=== PATIENT | male | born 1945 | race African-American/Black ===

== ENCOUNTER 2018-07-19 01:18 | Inpatient (IN) | payer MEDICAID, MEDICARE ==
[2018-07-19] VITALS (80 sets, daily range): BP systolic 77–168; BP diastolic 44–96
[~2018-07-19] VITALS: Ht 171.4 cm; Wt 116.6 kg
[2018-07-19] MEDS ORDERED: ONDANSETRON HCL 4MG/2ML INJ IV STA (01:36)
[2018-07-19] MEDS ORDERED: PROPOFOL 10MG/ML 100ML 100 ML IV ONE (01:45)
[2018-07-19] MEDS ORDERED: ETOMIDATE 2MG/ML 10ML VIAL IV ONE (01:45)
[2018-07-19] MEDS ORDERED: VECURONIUM BROMIDE 10 MG/VIAL IV ONE (01:45)
[2018-07-19] MEDS ORDERED: SODIUM CHLORIDE 0.9% 1000ML BAG (SEPSIS BOLUS) IV ONE (01:45)
[2018-07-19] MEDS ORDERED: VANCOMYCIN 1 G PREMIX 200 ML IV ONE (01:45)
[2018-07-19] MEDS ORDERED: PIPERACILLIN/TAZ 3.375G PREMIX 50 ML IV ONE (01:45)
[2018-07-19 02:14] LABS: HEMATOCRIT. 44.4 % (42.0-52.0); HEMOGLOBIN. 15.6 g/dL (14.0-18.0); MEAN CORPUSCULAR HEMOGLOBIN 31.6 pg (28.0-32.0); MEAN CORPUSCULAR VOLUME 90.1 fL (80.0-94.0); MEAN PLATELET VOLUME 8.5 fl (7.4-10.4); PLATELET 155 x1000/uL (130-400); RED BLOOD CELL COUNT 4.93 mill/uL (4.7-6.1)
[2018-07-19 02:21] LABS: CHLORIDE 110 mEq/L (98-107)
[2018-07-19 02:23] LABS: INR 1.1; PROTHROMBIN TIME 11.6 sec (9.6-11.0)
[2018-07-19 02:52] LABS: PLATELET ESTIMATE NORMAL
[2018-07-19 02:57] LABS: BG BASE EXCESS -2.9 mmol/L (-2.0-2.0); BG CARBOXYHEMOGLOBIN 0.2 % (0.5-1.5); BG DEOXYHEMOGLOBIN 0.7 % (0.0-5.0); BG FRACTION INSPIRED OXYGEN 100; BG HCO3 ACT 20.9 mmol/L (22.0-26.0); BG METHEMOGLOBIN 0.7 % (0.0-1.5); BG OXYGEN SATURATION 99.3 % (92.0-98.5); BG OXYHEMOGLOBIN 98.4 % (94.0-97.0); BG PCO2 33.9 mmHg (35.0-45.0); BG PEEP (cmH2O) 0 cmH2O; BG PH 7.407 (7.350-7.450); BG PO2 229.7 mmHg (75.0-100.0); BG SAMPLE SITE RIGHT RADIAL; BG TIDAL VOLUME(mL) 550 mL; BG TOTAL HEMOGLOBIN 16.6 g/dL (12.0-18.0); BG VENT MODE VENT - A/C; BG VENT RATE 14 set
[2018-07-19] MEDS ORDERED: ACETAMINOPHEN 650MG SUPP PR SCH (03:15)
[2018-07-19 03:20] LABS: CLARITY URINE TURBID (CLEAR); KETONES URINE TRACE (NEGATIVE); LEUKOCYTE ESTERASE URINE 3+ (NEGATIVE); NITRITE URINE NEGATIVE (NEGATIVE); OCCULT BLOOD URINE 3+ (NEGATIVE); PROTEIN URINE 2+ (NEGATIVE); SPECIFIC GRAVITY URINE 1.013 (1.005-1.030)
[2018-07-19 03:21] LABS: COLOR URINE BLOODY (YELLOW)
[2018-07-19] MEDS ORDERED: LORAZEPAM 2MG/ML CPJ IV PRN (03:30)
[2018-07-19] MEDS ORDERED: DIPHENHYDRAMINE 50MG/ML VIAL IV PRN (03:30)
[2018-07-19] MEDS ORDERED: LACTATED RINGERS 1,000 ML IV SCH (03:30)
[2018-07-19] MEDS ORDERED: ONDANSETRON HCL 4MG/2ML INJ IV PRN (03:30)
[2018-07-19] MEDS ORDERED: IPRATROPIUM/ALBUTEROL 0.5-3(2.5)MG/3ML NEB INH PRN (03:30)
[2018-07-19] MEDS ORDERED: VANCOMYCIN 1 G PREMIX 200 ML IV SCH ×2 (03:30→06:00)
[2018-07-19] MEDS ORDERED: FENTANYL CITRATE/PF 500 MCG in SODIUM CHLORIDE 0.9% 40 ML IV PRN (04:30)
[2018-07-19] MEDS ORDERED: MIDAZOLAM HCL 100 MG in DEXT 5% WATER 80 ML IV PRN ×4 (04:30)
[2018-07-19] MEDS ORDERED: MIDAZOLAM HCL 50 MG in DEXTROSE 5% WATER 40 ML IV SCH ×4 (04:30)
[2018-07-19] MEDS: FENTANYL CITRATE/PF 500 MCG in SODIUM CHLORIDE 0.9% 40 ML IV PRN ×2 (05:07→19:43)
[2018-07-19 05:24] LABS: PHOSPHORUS 3.9 mg/dL (2.5-4.9)
[2018-07-19] MEDS ORDERED: NOREPINEPHRINE 4 MG in DEXT 5% WATER 246 ML IV SCH ×4 (06:00)
[2018-07-19 06:22] LABS: BG BASE EXCESS -6.1 mmol/L (-2.0-2.0); BG CARBOXYHEMOGLOBIN 0.8 % (0.5-1.5); BG DEOXYHEMOGLOBIN 0.7 % (0.0-5.0); BG HCO3 ACT 18.9 mmol/L (22.0-26.0); BG METHEMOGLOBIN 0.4 % (0.0-1.5); BG OXYGEN SATURATION 99.3 % (92.0-98.5); BG OXYHEMOGLOBIN 98.1 % (94.0-97.0); BG PCO2 35.7 mmHg (35.0-45.0); BG PH 7.341 (7.350-7.450); BG PO2 258.4 mmHg (75.0-100.0); BG SAMPLE SITE RIGHT RADIAL; BG TIDAL VOLUME(mL) 550 mL; BG TOTAL HEMOGLOBIN 14.8 g/dL (12.0-18.0); BG VENT MODE VENT - A/C; BG VENT RATE 14 set
[2018-07-19] MEDS ORDERED: AMLO5TAB88 PO (06:28)
[2018-07-19] MEDS ORDERED: CLOP75TA33 PO (06:28)
[2018-07-19] MEDS ORDERED: CHOL100034 MT (06:38)
[2018-07-19] MEDS ORDERED: ACET-2853 PO (06:38)
[2018-07-19] MEDS ORDERED: BISA10SU8 RC (06:38)
[2018-07-19] MEDS ORDERED: LOPE2TAB26 PO (06:38)
[2018-07-19] MEDS ORDERED: FAMO20TA8 MT (06:38)
[2018-07-19] MEDS ORDERED: ESCI5TAB10 PO (06:38)
[2018-07-19] MEDS ORDERED: DOCU-150 MT (06:38)
[2018-07-19] MEDS ORDERED: AMIN30LI2 PO (06:38)
[2018-07-19] MEDS ORDERED: SOD1POWD3 RC (06:38)
[2018-07-19] MEDS ORDERED: MOM PO (06:38)
[2018-07-19] MEDS ORDERED: LIDOCAINE HCL 1% 20ML VIAL (Pyxis) INJ ONE (07:39)
[2018-07-19] MEDS ORDERED: PIPERACILLIN SODIUM/TAZOBACTAM 4.5 G in DEXT 5% WATER 100 ML IV SCH (09:00)
[2018-07-19] MEDS: ENOXAPARIN 40MG/0.4ML SYR SUBCUT SCH (09:41)
[2018-07-19] MEDS: PIPERACILLIN/TAZ 2.25G PREMIX 50 ML IV SCH ×3 (09:41→21:07)
[2018-07-19] MEDS: FAMOTIDINE 20MG/2ML VIAL IV SCH (09:41)
[2018-07-19] MEDS: ACETAMINOPHEN 650MG SUPP PR PRN ×2 (10:57→17:39)
[2018-07-19] MEDS: PROPOFOL 10MG/ML 100ML 100 ML IV PRN ×3 (11:08→21:18)
[2018-07-19 12:28] LABS: HEMATOCRIT. 44.2 % (42.0-52.0); HEMOGLOBIN. 14.9 g/dL (14.0-18.0); MEAN CORPUSCULAR HEMOGLOBIN 30.5 pg (28.0-32.0); MEAN CORPUSCULAR VOLUME 90.7 fL (80.0-94.0); MEAN PLATELET VOLUME 8.2 fl (7.4-10.4); PLATELET 105 x1000/uL (130-400); RED BLOOD CELL COUNT 4.88 mill/uL (4.7-6.1); RED CELL DISTRIBUTION WIDTH 14.3 % (11.6-14.6)
[2018-07-19] MEDS ORDERED: DEXT 5%/0.9% NACL 1,000 ML IV ONE (13:00)
[2018-07-19 13:11] LABS: CHLORIDE 111 mEq/L (98-107)
[2018-07-19 13:59] LABS: PLATELET ESTIMATE SLIGHTLY DECREASED
[2018-07-19] MEDS: PHENYLEPHRINE 10 MG in DEXT 5% WATER 249 ML IV PRN ×3 (14:27→21:18)
[2018-07-19 15:09] LABS: HEMATOCRIT. 42.8 % (42.0-52.0); HEMOGLOBIN. 14.3 g/dL (14.0-18.0); MEAN CORPUSCULAR HEMOGLOBIN 30.3 pg (28.0-32.0); MEAN CORPUSCULAR VOLUME 90.8 fL (80.0-94.0); MEAN PLATELET VOLUME 8.8 fl (7.4-10.4); PLATELET 123 x1000/uL (130-400); RED BLOOD CELL COUNT 4.71 mill/uL (4.7-6.1); RED CELL DISTRIBUTION WIDTH 14.1 % (11.6-14.6)
[2018-07-19 15:35] LABS: PLATELET ESTIMATE SLIGHTLY DECREASED
[2018-07-19] MEDS: IPRATROPIUM BROMIDE (0.02%) 0.5MG/2.5ML NEB HHN SCH (20:15)
[2018-07-19] MEDS ORDERED: DEXTROSE 50% WATER 50ML SYRINGE IV PRN (20:45)
[2018-07-19] MEDS ORDERED: INSULIN LISPRO 100 UNITS/ML SUBCUT SCH (21:00)
[2018-07-19] MEDS ORDERED: BLOOD SUGAR DIAGNOSTIC STRIP TEST SCH (21:00)
[2018-07-19] MEDS: PHENYLEPHRINE 20 MG in DEXT 5% WATER 498 ML IV PRN (23:46)
[2018-07-20] VITALS (115 sets, daily range): BP systolic 64–198; BP diastolic 18–164
[2018-07-20] MEDS: IPRATROPIUM BROMIDE (0.02%) 0.5MG/2.5ML NEB HHN SCH ×6 (00:07→20:33)
[2018-07-20] MEDS: PIPERACILLIN/TAZ 2.25G PREMIX 50 ML IV SCH ×2 (03:09→08:28)
[2018-07-20] MEDS: PROPOFOL 10MG/ML 100ML 100 ML IV PRN ×2 (03:09→07:31)
[2018-07-20] MEDS: BLOOD SUGAR DIAGNOSTIC STRIP TEST SCH ×4 (06:00→23:18)
[2018-07-20] MEDS: INSULIN LISPRO 100 UNITS/ML SUBCUT SCH ×4 (06:00→23:18)
[2018-07-20 06:07] LABS: HEMATOCRIT. 43.9 % (42.0-52.0); HEMOGLOBIN. 14.6 g/dL (14.0-18.0); MEAN CORPUSCULAR HEMOGLOBIN 30.3 pg (28.0-32.0); MEAN CORPUSCULAR VOLUME 90.8 fL (80.0-94.0); MEAN PLATELET VOLUME 8.7 fl (7.4-10.4); PLATELET 92 x1000/uL (130-400); RED BLOOD CELL COUNT 4.83 mill/uL (4.7-6.1); RED CELL DISTRIBUTION WIDTH 14.6 % (11.6-14.6)
[2018-07-20 06:56] LABS: CHLORIDE 106 mEq/L (98-107)
[2018-07-20 07:07] LABS: PHOSPHORUS 2.7 mg/dL (2.5-4.9)
[2018-07-20 07:08] LABS: HDL CHOLESTEROL 11 mg/dL (40-59); LDL CHOLESTEROL 22 mg/dL (5-100)
[2018-07-20] MEDS: PHENYLEPHRINE 20 MG in DEXT 5% WATER 498 ML IV PRN ×2 (07:51→18:18)
[2018-07-20 08:29] LABS: PLATELET ESTIMATE DECREASED
[2018-07-20] MEDS: FAMOTIDINE 20MG/2ML VIAL IV SCH (08:29)
[2018-07-20] MEDS: ENOXAPARIN 40MG/0.4ML SYR SUBCUT SCH (08:30)
[2018-07-20 09:15] LABS: BG CARBOXYHEMOGLOBIN 0.6 % (0.5-1.5); BG DEOXYHEMOGLOBIN 1.2 % (0.0-5.0); BG FRACTION INSPIRED OXYGEN 40; BG HCO3 ACT 21.1 mmol/L (22.0-26.0); BG METHEMOGLOBIN 0.4 % (0.0-1.5); BG OXYGEN SATURATION 98.8 % (92.0-98.5); BG OXYHEMOGLOBIN 97.8 % (94.0-97.0); BG PCO2 38.6 mmHg (35.0-45.0); BG PH 7.355 (7.350-7.450); BG PO2 139.1 mmHg (75.0-100.0); BG SAMPLE SITE RIGHT RADIAL; BG TIDAL VOLUME(mL) 550 mL; BG TOTAL HEMOGLOBIN 14.3 g/dL (12.0-18.0); BG VENT MODE VENT - A/C; BG VENT RATE 14 set
[2018-07-20] MEDS ORDERED: CEFAZOLIN 2,000 MG in DEXT 5% WATER 100 ML IV SCH (11:45)
[2018-07-20] MEDS: MIDAZOLAM HCL 50 MG in DEXTROSE 5% WATER 40 ML IV PRN ×2 (12:23→17:38)
[2018-07-20] MEDS ORDERED: AMPICILLIN 2,000 MG in SODIUM CHLORIDE 0.9% 100 ML IV SCH (13:00)
[2018-07-20] MEDS ORDERED: VANCOMYCIN 1,750 MG in DEXT 5% WATER 500 ML IV NR (13:00)
[2018-07-20] MEDS ORDERED: DEXT 5%/0.45% NACL 500ML 500 ML IV SCH (13:00)
[2018-07-20] MEDS ORDERED: CEFAZOLIN 2000MG in DEXTROSE 5% WATER 100ML IV SCH (13:00)
[2018-07-20] MEDS: DEXT 5%/0.45% NACL 1000ML 1,000 ML IV SCH (13:22)
[2018-07-20] MEDS ORDERED: SODIUM BICARBONATE 4% (2.4MEQ) 5ML VIAL IV ONE (14:03)
[2018-07-20] MEDS ORDERED: LIDOCAINE HCL 1% 20ML VIAL (Pyxis) INJ ONE (14:04)
[2018-07-20] MEDS ORDERED: IOHEXOL-300 100 ML BOTTLE ONE (14:04)
[2018-07-20] MEDS: CEFTRIAXONE 2 G in DEXTROSE 5% WATER 50 ML IV SCH (16:22)
[2018-07-20] MEDS: ACETAMINOPHEN 650MG SUPP PR PRN (16:28)
[2018-07-20] MEDS ORDERED: LABETALOL 5MG/ML SYR 20 MG/4 ML SYRINGE IV ONE (16:30)
[2018-07-20] MEDS ORDERED: LABETALOL 5MG/ML SYR 20 MG/4 ML SYRINGE IV NR (16:45)
[2018-07-20] MEDS: FENTANYL CITRATE/PF 500 MCG in SODIUM CHLORIDE 0.9% 40 ML IV PRN (20:10)
[2018-07-20] MEDS ORDERED: PHENYLEPHRINE 80 MG in DEXT 5% WATER 492 ML IV PRN (21:45)
[2018-07-21] VITALS (101 sets, daily range): BP systolic 83–160; BP diastolic 46–113
[2018-07-21] MEDS: IPRATROPIUM BROMIDE (0.02%) 0.5MG/2.5ML NEB HHN SCH ×6 (00:38→20:04)
[2018-07-21] MEDS: MIDAZOLAM HCL 50 MG in DEXTROSE 5% WATER 40 ML IV PRN ×3 (00:48→19:18)
[2018-07-21] MEDS: DEXT 5%/0.45% NACL 1000ML 1,000 ML IV SCH ×2 (03:40→15:55)
[2018-07-21] MEDS: IPRATROPIUM/ALBUTEROL 0.5-3(2.5)MG/3ML NEB INH PRN (04:23)
[2018-07-21] MEDS: FENTANYL CITRATE/PF 500 MCG in SODIUM CHLORIDE 0.9% 40 ML IV PRN ×2 (04:37→16:21)
[2018-07-21 05:20] LABS: HEMATOCRIT. 40.9 % (42.0-52.0); HEMOGLOBIN. 13.6 g/dL (14.0-18.0); MEAN CORPUSCULAR VOLUME 90.1 fL (80.0-94.0); MEAN PLATELET VOLUME 9.1 fl (7.4-10.4); PLATELET 73 x1000/uL (130-400); RED BLOOD CELL COUNT 4.54 mill/uL (4.7-6.1); RED CELL DISTRIBUTION WIDTH 14.4 % (11.6-14.6)
[2018-07-21] MEDS: BLOOD SUGAR DIAGNOSTIC STRIP TEST SCH ×4 (05:46→23:10)
[2018-07-21] MEDS: INSULIN LISPRO 100 UNITS/ML SUBCUT SCH ×4 (05:46→23:10)
[2018-07-21] MEDS ORDERED: VANCOMYCIN 1500MG in DEXTROSE 5% WATER 250ML IV SCH (06:00)
[2018-07-21 08:00] LABS: BG BASE EXCESS -3.3 mmol/L (-2.0-2.0); BG CARBOXYHEMOGLOBIN 0.4 % (0.5-1.5); BG DEOXYHEMOGLOBIN 2.3 % (0.0-5.0); BG HCO3 ACT 23.2 mmol/L (22.0-26.0); BG METHEMOGLOBIN 0.6 % (0.0-1.5); BG OXYGEN SATURATION 97.7 % (92.0-98.5); BG OXYHEMOGLOBIN 96.7 % (94.0-97.0); BG PH 7.311 (7.350-7.450); BG PO2 102.9 mmHg (75.0-100.0); BG SAMPLE SITE RIGHT RADIAL; BG TIDAL VOLUME(mL) 550 mL; BG TOTAL HEMOGLOBIN 14.7 g/dL (12.0-18.0); BG VENT MODE VENT - A/C; BG VENT RATE 14 set
[2018-07-21 09:37] LABS: PLATELET ESTIMATE SLIGHTL
[2018-07-21] MEDS: FAMOTIDINE 20MG/2ML VIAL IV SCH (09:59)
[2018-07-21] MEDS: CEFTRIAXONE 2 G in DEXTROSE 5% WATER 50 ML IV SCH (15:55)
[2018-07-22] VITALS (71 sets, daily range): BP systolic 82–138; BP diastolic 53–98
[2018-07-22] MEDS: IPRATROPIUM BROMIDE (0.02%) 0.5MG/2.5ML NEB HHN SCH ×6 (00:10→20:19)
[2018-07-22] MEDS: FENTANYL CITRATE/PF 500 MCG in SODIUM CHLORIDE 0.9% 40 ML IV PRN ×2 (02:51→19:15)
[2018-07-22] MEDS: DEXT 5%/0.45% NACL 1000ML 1,000 ML IV SCH ×2 (04:28→17:41)
[2018-07-22 05:19] LABS: HEMATOCRIT. 38.9 % (42.0-52.0); HEMOGLOBIN. 13.1 g/dL (14.0-18.0); MEAN CORPUSCULAR HEMOGLOBIN 30.1 pg (28.0-32.0); MEAN CORPUSCULAR VOLUME 89.4 fL (80.0-94.0); MEAN PLATELET VOLUME 8.8 fl (7.4-10.4); PLATELET 76 x1000/uL (130-400); RED BLOOD CELL COUNT 4.35 mill/uL (4.7-6.1); RED CELL DISTRIBUTION WIDTH 14.7 % (11.6-14.6)
[2018-07-22 05:32] LABS: PHOSPHORUS 2.7 mg/dL (2.5-4.9)
[2018-07-22] MEDS: INSULIN LISPRO 100 UNITS/ML SUBCUT SCH ×4 (06:00→23:54)
[2018-07-22] MEDS: BLOOD SUGAR DIAGNOSTIC STRIP TEST SCH ×4 (06:00→23:54)
[2018-07-22 07:49] LABS: PLATELET ESTIMATE DECREASED
[2018-07-22] MEDS: FAMOTIDINE 20MG/2ML VIAL IV SCH (09:02)
[2018-07-22] MEDS: MIDAZOLAM HCL 50 MG in DEXTROSE 5% WATER 40 ML IV PRN (09:04)
[2018-07-22 09:08] LABS: BG CARBOXYHEMOGLOBIN 0.9 % (0.5-1.5); BG DEOXYHEMOGLOBIN 1.5 % (0.0-5.0); BG FRACTION INSPIRED OXYGEN 40; BG METHEMOGLOBIN 0.3 % (0.0-1.5); BG OXYGEN SATURATION 98.5 % (92.0-98.5); BG OXYHEMOGLOBIN 97.3 % (94.0-97.0); BG PCO2 43.6 mmHg (35.0-45.0); BG PH 7.321 (7.350-7.450); BG PO2 124.2 mmHg (75.0-100.0); BG SAMPLE SITE RIGHT RADIAL; BG TIDAL VOLUME(mL) 550 mL; BG TOTAL HEMOGLOBIN 13.9 g/dL (12.0-18.0); BG VENT MODE VENT - A/C; BG VENT RATE 14 set
[2018-07-22] MEDS: MIDODRINE HCL 2.5MG TABLET PO SCH ×3 (10:16→17:40)
[2018-07-22] MEDS ORDERED: POTASSIUM CHLORIDE 20MEQ/PACKET PO NR (10:45)
[2018-07-22] MEDS ORDERED: BISACODYL 10MG SUPP PR PRN (12:15)
[2018-07-22] MEDS ORDERED: LACTULOSE 20G/30ML UDC PO NR (12:15)
[2018-07-22] MEDS: DOCUSATE SODIUM SUGAR FREE 100MG/10ML UDC NG SCH (12:56)
[2018-07-22] MEDS: CEFTRIAXONE 2 G in DEXTROSE 5% WATER 50 ML IV SCH (15:33)
[2018-07-23] VITALS (47 sets, daily range): BP systolic 94–159; BP diastolic 37–118
[2018-07-23] MEDS: IPRATROPIUM BROMIDE (0.02%) 0.5MG/2.5ML NEB HHN SCH ×6 (00:22→20:20)
[2018-07-23] MEDS: MIDAZOLAM HCL 50 MG in DEXTROSE 5% WATER 40 ML IV PRN (05:19)
[2018-07-23 05:50] LABS: HEMATOCRIT. 39.5 % (42.0-52.0); HEMOGLOBIN. 13.6 g/dL (14.0-18.0); MEAN CORPUSCULAR HEMOGLOBIN 30.6 pg (28.0-32.0); MEAN CORPUSCULAR VOLUME 89.3 fL (80.0-94.0); PLATELET 78 x1000/uL (130-400); RED BLOOD CELL COUNT 4.43 mill/uL (4.7-6.1); RED CELL DISTRIBUTION WIDTH 15.2 % (11.6-14.6)
[2018-07-23] MEDS: INSULIN LISPRO 100 UNITS/ML SUBCUT SCH ×3 (06:00→17:48)
[2018-07-23] MEDS: BLOOD SUGAR DIAGNOSTIC STRIP TEST SCH ×3 (06:38→17:48)
[2018-07-23 07:15] LABS: BG BASE EXCESS -2.7 mmol/L (-2.0-2.0); BG CARBOXYHEMOGLOBIN 0.6 % (0.5-1.5); BG DEOXYHEMOGLOBIN 2.2 % (0.0-5.0); BG HCO3 ACT 23.5 mmol/L (22.0-26.0); BG METHEMOGLOBIN 0.4 % (0.0-1.5); BG OXYGEN SATURATION 97.8 % (92.0-98.5); BG OXYHEMOGLOBIN 96.8 % (94.0-97.0); BG PCO2 46.1 mmHg (35.0-45.0); BG PH 7.325 (7.350-7.450); BG SAMPLE SITE RIGHT RADIAL; BG TIDAL VOLUME(mL) 550 mL; BG TOTAL HEMOGLOBIN 13.8 g/dL (12.0-18.0); BG VENT MODE VENT - A/C; BG VENT RATE 14 set
[2018-07-23] MEDS: FAMOTIDINE 20MG/2ML VIAL IV SCH (08:43)
[2018-07-23] MEDS: DEXT 5%/0.45% NACL 1000ML 1,000 ML IV SCH ×2 (08:43→21:15)
[2018-07-23] MEDS: DOCUSATE SODIUM SUGAR FREE 100MG/10ML UDC NG SCH (08:43)
[2018-07-23] MEDS: MIDODRINE HCL 2.5MG TABLET PO SCH (08:44)
[2018-07-23 10:25] LABS: PLATELET ESTIMATE DECREASED
[2018-07-23] MEDS: FENTANYL CITRATE/PF 500 MCG in SODIUM CHLORIDE 0.9% 40 ML IV PRN ×2 (12:39→20:43)
[2018-07-23] MEDS: CEFTRIAXONE 2 G in DEXTROSE 5% WATER 50 ML IV SCH (15:45)
[2018-07-24] VITALS (46 sets, daily range): BP systolic 97–159; BP diastolic 60–104
[2018-07-24] MEDS: BLOOD SUGAR DIAGNOSTIC STRIP TEST SCH ×4 (00:15→18:11)
[2018-07-24] MEDS: IPRATROPIUM BROMIDE (0.02%) 0.5MG/2.5ML NEB HHN SCH ×6 (00:27→20:57)
[2018-07-24] MEDS: IPRATROPIUM/ALBUTEROL 0.5-3(2.5)MG/3ML NEB INH PRN (04:23)
[2018-07-24 05:23] LABS: HEMATOCRIT. 40.6 % (42.0-52.0); HEMOGLOBIN. 13.9 g/dL (14.0-18.0); MEAN CORPUSCULAR HEMOGLOBIN 30.6 pg (28.0-32.0); MEAN CORPUSCULAR VOLUME 89.6 fL (80.0-94.0); RED BLOOD CELL COUNT 4.53 mill/uL (4.7-6.1); RED CELL DISTRIBUTION WIDTH 15.3 % (11.6-14.6)
[2018-07-24] MEDS ORDERED: FENTANYL CITRATE/PF 500 MCG in SODIUM CHLORIDE 0.9% 40 ML IV PRN (05:30)
[2018-07-24] MEDS: INSULIN LISPRO 100 UNITS/ML SUBCUT SCH ×4 (06:00→18:00)
[2018-07-24] MEDS: MIDAZOLAM HCL 50 MG in DEXTROSE 5% WATER 40 ML IV PRN (06:39)
[2018-07-24] MEDS: FENTANYL CITRATE/PF 500 MCG in SODIUM CHLORIDE 0.9% 40 ML IV PRN (06:54)
[2018-07-24 08:49] LABS: BG BASE EXCESS -2.5 mmol/L (-2.0-2.0); BG CARBOXYHEMOGLOBIN 0.4 % (0.5-1.5); BG DEOXYHEMOGLOBIN 1.1 % (0.0-5.0); BG FRACTION INSPIRED OXYGEN 40; BG HCO3 ACT 23.6 mmol/L (22.0-26.0); BG METHEMOGLOBIN 0.2 % (0.0-1.5); BG OXYGEN SATURATION 98.9 % (92.0-98.5); BG OXYHEMOGLOBIN 98.3 % (94.0-97.0); BG PCO2 45.8 mmHg (35.0-45.0); BG PH 7.329 (7.350-7.450); BG PO2 151.5 mmHg (75.0-100.0); BG SAMPLE SITE LEFT RADIAL; BG TIDAL VOLUME(mL) 550 mL; BG TOTAL HEMOGLOBIN 12.7 g/dL (12.0-18.0); BG VENT MODE VENT - A/C; BG VENT RATE 14 set
[2018-07-24] MEDS: DOCUSATE SODIUM SUGAR FREE 100MG/10ML UDC NG SCH (09:02)
[2018-07-24] MEDS: FAMOTIDINE 20MG/2ML VIAL IV SCH (09:02)
[2018-07-24 09:31] LABS: MEAN PLATELET VOLUME 9.3 fl (7.4-10.4); PLATELET 95 x1000/uL (130-400); PLATELET ESTIMATE DECREASED
[2018-07-24] MEDS: DEXT 5%/0.45% NACL 1000ML 1,000 ML IV SCH (09:48)
[2018-07-24 14:05] LABS: BG BASE EXCESS -2.5 mmol/L (-2.0-2.0); BG CARBOXYHEMOGLOBIN 0.8 % (0.5-1.5); BG DEOXYHEMOGLOBIN 2.4 % (0.0-5.0); BG FRACTION INSPIRED OXYGEN 35; BG HCO3 ACT 23.5 mmol/L (22.0-26.0); BG METHEMOGLOBIN 0.4 % (0.0-1.5); BG OXYGEN SATURATION 97.6 % (92.0-98.5); BG OXYHEMOGLOBIN 96.4 % (94.0-97.0); BG PH 7.335 (7.350-7.450); BG SAMPLE SITE LEFT RADIAL; BG TIDAL VOLUME(mL) 550 mL; BG TOTAL HEMOGLOBIN 12.8 g/dL (12.0-18.0); BG VENT MODE VENT - A/C; BG VENT RATE 12 set
[2018-07-24] MEDS: CEFTRIAXONE 2 G in DEXTROSE 5% WATER 50 ML IV SCH (15:06)
[2018-07-24] MEDS: ACETAMINOPHEN 650MG SUPP PR PRN (19:16)
[2018-07-25] VITALS (48 sets, daily range): BP systolic 96–153; BP diastolic 53–94
[2018-07-25] MEDS: DEXT 5%/0.45% NACL 1000ML 1,000 ML IV SCH (00:16)
[2018-07-25] MEDS: BLOOD SUGAR DIAGNOSTIC STRIP TEST SCH ×4 (00:17→17:09)
[2018-07-25] MEDS: IPRATROPIUM BROMIDE (0.02%) 0.5MG/2.5ML NEB HHN SCH ×6 (00:27→20:07)
[2018-07-25 05:35] LABS: HEMATOCRIT. 34.8 % (42.0-52.0); HEMOGLOBIN. 12.1 g/dL (14.0-18.0); MEAN CORPUSCULAR HEMOGLOBIN 30.5 pg (28.0-32.0); MEAN CORPUSCULAR VOLUME 87.8 fL (80.0-94.0); MEAN PLATELET VOLUME 8.5 fl (7.4-10.4); PLATELET 149 x1000/uL (130-400); RED BLOOD CELL COUNT 3.96 mill/uL (4.7-6.1); RED CELL DISTRIBUTION WIDTH 14.4 % (11.6-14.6)
[2018-07-25] MEDS: INSULIN LISPRO 100 UNITS/ML SUBCUT SCH ×4 (06:00→17:09)
[2018-07-25] MEDS ORDERED: POTASSIUM CHLORIDE 20MEQ/PACKET PO NR (07:30)
[2018-07-25 08:32] LABS: BG BASE EXCESS -1.9 mmol/L (-2.0-2.0); BG CARBOXYHEMOGLOBIN 0.5 % (0.5-1.5); BG DEOXYHEMOGLOBIN 2.4 % (0.0-5.0); BG FRACTION INSPIRED OXYGEN 35; BG HCO3 ACT 23.8 mmol/L (22.0-26.0); BG METHEMOGLOBIN 0.3 % (0.0-1.5); BG OXYGEN SATURATION 97.6 % (92.0-98.5); BG OXYHEMOGLOBIN 96.8 % (94.0-97.0); BG PCO2 44.6 mmHg (35.0-45.0); BG PH 7.346 (7.350-7.450); BG PO2 104.2 mmHg (75.0-100.0); BG SAMPLE SITE RIGHT RADIAL; BG TIDAL VOLUME(mL) 550 mL; BG TOTAL HEMOGLOBIN 12.6 g/dL (12.0-18.0); BG VENT MODE VENT - A/C; BG VENT RATE 12 set
[2018-07-25] MEDS: FAMOTIDINE 20MG/2ML VIAL IV SCH (08:35)
[2018-07-25] MEDS: DOCUSATE SODIUM SUGAR FREE 100MG/10ML UDC NG SCH (08:35)
[2018-07-25] MEDS: FENTANYL CITRATE/PF 500 MCG in SODIUM CHLORIDE 0.9% 40 ML IV PRN (08:41)
[2018-07-25] MEDS: MIDAZOLAM HCL 50 MG in DEXTROSE 5% WATER 40 ML IV PRN (08:41)
[2018-07-25] MEDS: ENOXAPARIN 40MG/0.4ML SYR SUBCUT SCH (12:04)
[2018-07-25] MEDS: CEFTRIAXONE 2 G in DEXTROSE 5% WATER 50 ML IV SCH (15:12)
[2018-07-25 19:50] LABS: ETHANOL BLOOD < 10 mg/dL
[2018-07-25 19:52] LABS: FOLIC ACID (FOLATE) SERUM 17.1 ng/mL (>5.38)
[2018-07-25 19:55] LABS: T4 FREE 1.28 ng/dL (0.76-1.46)
[2018-07-25 20:33] LABS: PLATELET ESTIMATE NORMAL
[2018-07-26] VITALS (46 sets, daily range): BP systolic 97–150; BP diastolic 56–86
[2018-07-26] MEDS: IPRATROPIUM BROMIDE (0.02%) 0.5MG/2.5ML NEB HHN SCH ×6 (00:14→20:21)
[2018-07-26] MEDS: BLOOD SUGAR DIAGNOSTIC STRIP TEST SCH ×5 (00:31→23:58)
[2018-07-26 05:48] LABS: HEMATOCRIT. 36.1 % (42.0-52.0); HEMOGLOBIN. 12.4 g/dL (14.0-18.0); MEAN CORPUSCULAR HEMOGLOBIN 30.3 pg (28.0-32.0); MEAN CORPUSCULAR VOLUME 88.1 fL (80.0-94.0); MEAN PLATELET VOLUME 8.2 fl (7.4-10.4); PLATELET 211 x1000/uL (130-400); RED BLOOD CELL COUNT 4.09 mill/uL (4.7-6.1); RED CELL DISTRIBUTION WIDTH 14.5 % (11.6-14.6)
[2018-07-26] MEDS: INSULIN LISPRO 100 UNITS/ML SUBCUT SCH ×5 (06:00→23:58)
[2018-07-26 06:07] LABS: PHOSPHORUS 2.9 mg/dL (2.5-4.9)
[2018-07-26] MEDS ORDERED: POTASSIUM CHLORIDE 20MEQ/PACKET PO NR (07:45)
[2018-07-26 08:10] LABS: BG BASE EXCESS 1.8 mmol/L (-2.0-2.0); BG CARBOXYHEMOGLOBIN 0.7 % (0.5-1.5); BG DEOXYHEMOGLOBIN 1.5 % (0.0-5.0); BG FRACTION INSPIRED OXYGEN 35; BG HCO3 ACT 27.6 mmol/L (22.0-26.0); BG METHEMOGLOBIN 0.6 % (0.0-1.5); BG OXYGEN SATURATION 98.5 % (92.0-98.5); BG OXYHEMOGLOBIN 97.2 % (94.0-97.0); BG PCO2 46.7 mmHg (35.0-45.0); BG PH 7.389 (7.350-7.450); BG PO2 122.1 mmHg (75.0-100.0); BG SAMPLE SITE RIGHT RADIAL; BG TIDAL VOLUME(mL) 550 mL; BG TOTAL HEMOGLOBIN 18.4 g/dL (12.0-18.0); BG VENT MODE VENT - A/C; BG VENT RATE 12 set
[2018-07-26] MEDS: DOCUSATE SODIUM SUGAR FREE 100MG/10ML UDC NG SCH (09:02)
[2018-07-26] MEDS: LANSOPRAZOLE 30MG DR CAPSULE GT SCH (09:02)
[2018-07-26] MEDS: ENOXAPARIN 40MG/0.4ML SYR SUBCUT SCH (09:02)
[2018-07-26 11:30] LABS: BG BASE EXCESS 0.2 mmol/L (-2.0-2.0); BG CARBOXYHEMOGLOBIN 0.5 % (0.5-1.5); BG DEOXYHEMOGLOBIN 10.5 % (0.0-5.0); BG FRACTION INSPIRED OXYGEN 30; BG HCO3 ACT 25.1 mmol/L (22.0-26.0); BG METHEMOGLOBIN 0.3 % (0.0-1.5); BG OXYGEN SATURATION 89.4 % (92.0-98.5); BG OXYHEMOGLOBIN 88.7 % (94.0-97.0); BG PCO2 41.9 mmHg (35.0-45.0); BG PH 7.396 (7.350-7.450); BG PO2 56.6 mmHg (75.0-100.0); BG PRESSURE SUPPORT 8; BG SAMPLE SITE RIGHT RADIAL; BG TOTAL HEMOGLOBIN 12.9 g/dL (12.0-18.0); BG VENT MODE VENT - CPAP
[2018-07-26 11:45] LABS: PLATELET ESTIMATE NORMAL
[2018-07-26 15:10] LABS: CANNABINOID URINE SCREEN NEGATIVE (NEGATIVE)
[2018-07-26 15:12] LABS: *AMPHETAMINES SCREEN URINE NEGATIVE (NEGATIVE); *BARBITURATES SCREEN URINE NEGATIVE (NEGATIVE); *BENZODIAZEPINES SCREEN URINE PRESUMTIVE POSITIVE (NEGATIVE); *COCAINE SCREEN URINE NEGATIVE (NEGATIVE); METHADONE URINE SCREEN NEGATIVE (NEGATIVE)
[2018-07-26 15:13] LABS: OPIATES URINE SCREEN NEGATIVE (NEGATIVE); PHENCYCLIDINE URINE SCREEN NEGATIVE (NEGATIVE)
[2018-07-26] MEDS: CEFTRIAXONE 2 G in DEXTROSE 5% WATER 50 ML IV SCH (17:00)
[2018-07-27] VITALS (48 sets, daily range): BP systolic 132–173; BP diastolic 16–96
[2018-07-27] MEDS: IPRATROPIUM BROMIDE (0.02%) 0.5MG/2.5ML NEB HHN SCH ×7 (00:10→23:47)
[2018-07-27 05:43] LABS: HEMATOCRIT. 33.8 % (42.0-52.0); HEMOGLOBIN. 11.5 g/dL (14.0-18.0); MEAN CORPUSCULAR VOLUME 88.3 fL (80.0-94.0); MEAN PLATELET VOLUME 8.2 fl (7.4-10.4); PLATELET 247 x1000/uL (130-400); RED BLOOD CELL COUNT 3.82 mill/uL (4.7-6.1); RED CELL DISTRIBUTION WIDTH 14.7 % (11.6-14.6)
[2018-07-27] MEDS: BLOOD SUGAR DIAGNOSTIC STRIP TEST SCH ×3 (06:00→18:08)
[2018-07-27] MEDS: INSULIN LISPRO 100 UNITS/ML SUBCUT SCH ×3 (06:00→18:00)
[2018-07-27 06:06] LABS: CHLORIDE 112 mEq/L (98-107)
[2018-07-27 06:12] LABS: PHOSPHORUS 3.2 mg/dL (2.5-4.9)
[2018-07-27] MEDS ORDERED: POTASSIUM CHLORIDE 20MEQ/PACKET PO SCH (08:30)
[2018-07-27] MEDS: DOCUSATE SODIUM SUGAR FREE 100MG/10ML UDC NG SCH (08:52)
[2018-07-27] MEDS: ENOXAPARIN 40MG/0.4ML SYR SUBCUT SCH (08:52)
[2018-07-27] MEDS: LANSOPRAZOLE 30MG DR CAPSULE GT SCH (08:52)
[2018-07-27 10:24] LABS: BG BASE EXCESS -0.2 mmol/L (-2.0-2.0); BG CARBOXYHEMOGLOBIN 0.4 % (0.5-1.5); BG DEOXYHEMOGLOBIN 1.7 % (0.0-5.0); BG FRACTION INSPIRED OXYGEN 45; BG HCO3 ACT 24.4 mmol/L (22.0-26.0); BG METHEMOGLOBIN 0.3 % (0.0-1.5); BG OXYGEN SATURATION 98.3 % (92.0-98.5); BG OXYHEMOGLOBIN 97.6 % (94.0-97.0); BG PCO2 39.8 mmHg (35.0-45.0); BG PH 7.406 (7.350-7.450); BG PO2 120.1 mmHg (75.0-100.0); BG PRESSURE SUPPORT 8; BG SAMPLE SITE RIGHT RADIAL; BG TOTAL HEMOGLOBIN 13.3 g/dL (12.0-18.0); BG VENT MODE VENT - CPAP
[2018-07-27] MEDS: AMLODIPINE 5MG TABLET PO SCH ×2 (11:50→20:18)
[2018-07-27 11:54] LABS: PLATELET ESTIMATE NORMAL
[2018-07-27] MEDS: CEFTRIAXONE 2 G in DEXTROSE 5% WATER 50 ML IV SCH (15:52)
[2018-07-27] MEDS: RACEPINEPHRINE 2.25% 0.5ML NEB VIAL HHN PRN ×2 (17:11→23:47)
[2018-07-28] VITALS (32 sets, daily range): BP systolic 132–159; BP diastolic 72–94
[2018-07-28] MEDS: RACEPINEPHRINE 2.25% 0.5ML NEB VIAL HHN PRN ×2 (04:08→09:44)
[2018-07-28] MEDS: IPRATROPIUM BROMIDE (0.02%) 0.5MG/2.5ML NEB HHN SCH ×2 (04:08→08:23)
[2018-07-28 05:28] LABS: BASOPHILS % 0.3 % (0.0-2.0); EOSINOPHILS % 1.6 % (0.0-5.0); HEMATOCRIT. 33.2 % (42.0-52.0); HEMOGLOBIN. 11.5 g/dL (14.0-18.0); LYMPHOCYTES % 16.2 % (20.0-50.0); MEAN CORPUSCULAR HEMOGLOBIN 30.8 pg (28.0-32.0); MEAN CORPUSCULAR VOLUME 88.6 fL (80.0-94.0); MEAN PLATELET VOLUME 7.8 fl (7.4-10.4); MONOCYTES % 9.9 % (2.0-8.0); PLATELET 259 x1000/uL (130-400); RED BLOOD CELL COUNT 3.75 mill/uL (4.7-6.1); RED CELL DISTRIBUTION WIDTH 14.3 % (11.6-14.6)
[2018-07-28] MEDS: INSULIN LISPRO 100 UNITS/ML SUBCUT SCH ×5 (05:29→23:49)
[2018-07-28] MEDS: BLOOD SUGAR DIAGNOSTIC STRIP TEST SCH ×5 (05:29→23:49)
[2018-07-28 05:41] LABS: CHLORIDE 108 mEq/L (98-107)
[2018-07-28] MEDS: LANSOPRAZOLE 30MG DR CAPSULE GT SCH (08:41)
[2018-07-28] MEDS: AMLODIPINE 5MG TABLET PO SCH ×2 (08:41→21:28)
[2018-07-28] MEDS: DOCUSATE SODIUM SUGAR FREE 100MG/10ML UDC NG SCH (08:42)
[2018-07-28] MEDS: ENOXAPARIN 40MG/0.4ML SYR SUBCUT SCH (08:42)
[2018-07-28] MEDS: POTASSIUM CHLORIDE 20MEQ/PACKET PO SCH ×2 (08:44→16:51)
[2018-07-28] MEDS: IPRATROPIUM/ALBUTEROL 0.5-3(2.5)MG/3ML NEB HHN SCH ×3 (12:37→20:53)
[2018-07-28] MEDS: CEFTRIAXONE 2 G in DEXTROSE 5% WATER 50 ML IV SCH (16:51)
[2018-07-28] MEDS: ACETYLCYSTEINE 100MG/ML 10% VIAL 4ML INH SCH (17:03)
[2018-07-29] VITALS (12 sets, daily range): BP systolic 118–142; BP diastolic 66–88
[2018-07-29] MEDS: ACETYLCYSTEINE 100MG/ML 10% VIAL 4ML INH SCH ×3 (00:35→15:23)
[2018-07-29] MEDS: IPRATROPIUM/ALBUTEROL 0.5-3(2.5)MG/3ML NEB HHN SCH ×6 (00:35→20:56)
[2018-07-29] MEDS: INSULIN LISPRO 100 UNITS/ML SUBCUT SCH ×3 (06:00→17:24)
[2018-07-29] MEDS: BLOOD SUGAR DIAGNOSTIC STRIP TEST SCH ×3 (06:00→17:08)
[2018-07-29] MEDS: LANSOPRAZOLE 30MG DR CAPSULE GT SCH (06:20)
[2018-07-29 07:22] LABS: BASOPHILS % 0.3 % (0.0-2.0); HEMATOCRIT. 33.1 % (42.0-52.0); HEMOGLOBIN. 11.2 g/dL (14.0-18.0); LYMPHOCYTES % 16.8 % (20.0-50.0); MEAN CORPUSCULAR HEMOGLOBIN 30.2 pg (28.0-32.0); MEAN CORPUSCULAR VOLUME 89.6 fL (80.0-94.0); MEAN PLATELET VOLUME 8.1 fl (7.4-10.4); MONOCYTES % 9.4 % (2.0-8.0); NEUTROPHILS % 71.5 % (40.0-76.0); PLATELET 271 x1000/uL (130-400); RED CELL DISTRIBUTION WIDTH 14.5 % (11.6-14.6)
[2018-07-29 07:45] LABS: CHLORIDE 108 mEq/L (98-107)
[2018-07-29] MEDS: ENOXAPARIN 40MG/0.4ML SYR SUBCUT SCH (08:26)
[2018-07-29] MEDS ORDERED: LIDOCAINE HCL/PF 1% 2ML VIAL ONE (08:34)
[2018-07-29] MEDS: AMLODIPINE 5MG TABLET PO SCH ×2 (09:00→21:00)
[2018-07-29] MEDS ORDERED: POTASSIUM CHLORIDE 20MEQ TABLET SR PO NR (09:00)
[2018-07-29] MEDS: POTASSIUM CHLORIDE 20MEQ/PACKET PO SCH ×2 (09:00→16:08)
[2018-07-29] MEDS: DOCUSATE SODIUM SUGAR FREE 100MG/10ML UDC NG SCH (09:00)
[2018-07-29 09:52] LABS: BG BASE EXCESS 4.2 mmol/L (-2.0-2.0); BG BILEVEL POS AIRWAY PRESSURE 15/5; BG CARBOXYHEMOGLOBIN 0.3 % (0.5-1.5); BG DEOXYHEMOGLOBIN 1.4 % (0.0-5.0); BG HCO3 ACT 29.5 mmol/L (22.0-26.0); BG METHEMOGLOBIN 0.5 % (0.0-1.5); BG OXYGEN SATURATION 98.6 % (92.0-98.5); BG OXYHEMOGLOBIN 97.8 % (94.0-97.0); BG PCO2 47.2 mmHg (35.0-45.0); BG PH 7.414 (7.350-7.450); BG PO2 138.3 mmHg (75.0-100.0); BG SAMPLE SITE RIGHT RADIAL; BG TOTAL HEMOGLOBIN 12.7 g/dL (12.0-18.0); BG VENT MODE MASK - BIPAP; BG VENT RATE 16 set
[2018-07-29] MEDS ORDERED: FUROSEMIDE 20MG/2ML VIAL IVP NR ×2 (10:00→18:00)
[2018-07-29] MEDS ORDERED: POTASSIUM CHLORIDE INJ 40 MEQ in DEXT 5% WATER 500 ML IV NR (11:00)
[2018-07-29] MEDS ORDERED: METHYLPREDNISOLONE SOD SUCC 125 MG/2 ML VIAL IV SCH (11:45)
[2018-07-29] MEDS: CEFTRIAXONE 2 G in DEXTROSE 5% WATER 50 ML IV SCH (16:08)
[2018-07-29 16:24] LABS: BG BASE EXCESS 3.8 mmol/L (-2.0-2.0); BG BILEVEL POS AIRWAY PRESSURE 15/5; BG CARBOXYHEMOGLOBIN 0.3 % (0.5-1.5); BG DEOXYHEMOGLOBIN 1.3 % (0.0-5.0); BG HCO3 ACT 30.1 mmol/L (22.0-26.0); BG METHEMOGLOBIN 1.5 % (0.0-1.5); BG OXYGEN SATURATION 98.7 % (92.0-98.5); BG OXYHEMOGLOBIN 96.9 % (94.0-97.0); BG PCO2 52.4 mmHg (35.0-45.0); BG PH 7.377 (7.350-7.450); BG PO2 188.8 mmHg (75.0-100.0); BG SAMPLE SITE RIGHT RADIAL; BG TOTAL HEMOGLOBIN 12.9 g/dL (12.0-18.0); BG VENT MODE MASK - BIPAP; BG VENT RATE 16 set
[2018-07-30] VITALS (11 sets, daily range): BP systolic 101–136; BP diastolic 45–80
[2018-07-30] MEDS: BLOOD SUGAR DIAGNOSTIC STRIP TEST SCH ×5 (00:08→21:03)
[2018-07-30] MEDS: IPRATROPIUM/ALBUTEROL 0.5-3(2.5)MG/3ML NEB HHN SCH ×6 (00:28→20:34)
[2018-07-30] MEDS: ACETYLCYSTEINE 100MG/ML 10% VIAL 4ML INH SCH ×3 (00:28→15:16)
[2018-07-30] MEDS: INSULIN LISPRO 100 UNITS/ML SUBCUT SCH ×5 (05:29→21:00)
[2018-07-30] MEDS ORDERED: FUROSEMIDE 40MG/4ML VIAL IVP NR (07:00)
[2018-07-30] MEDS: ENOXAPARIN 40MG/0.4ML SYR SUBCUT SCH (08:29)
[2018-07-30] MEDS: POTASSIUM CHLORIDE 20MEQ/PACKET PO SCH ×2 (08:33→16:51)
[2018-07-30] MEDS: FAMOTIDINE 20MG TABLET PO SCH ×2 (08:33→21:15)
[2018-07-30] MEDS: AMLODIPINE 5MG TABLET PO SCH ×3 (08:33→21:14)
[2018-07-30] MEDS: DOCUSATE SODIUM SUGAR FREE 100MG/10ML UDC NG SCH (08:33)
[2018-07-30 08:48] LABS: BASOPHILS % 0.1 % (0.0-2.0); LYMPHOCYTES % 8.8 % (20.0-50.0); MEAN CORPUSCULAR HEMOGLOBIN 29.8 pg (28.0-32.0); MEAN CORPUSCULAR VOLUME 89.2 fL (80.0-94.0); MEAN PLATELET VOLUME 8.3 fl (7.4-10.4); MONOCYTES % 7.2 % (2.0-8.0); NEUTROPHILS % 83.9 % (40.0-76.0); PLATELET 307 x1000/uL (130-400); RED BLOOD CELL COUNT 4.03 mill/uL (4.7-6.1); RED CELL DISTRIBUTION WIDTH 14.5 % (11.6-14.6)
[2018-07-30 09:45] LABS: BG BASE EXCESS 4.2 mmol/L (-2.0-2.0); BG BILEVEL POS AIRWAY PRESSURE 15/5; BG CARBOXYHEMOGLOBIN 0.3 % (0.5-1.5); BG DEOXYHEMOGLOBIN 1.2 % (0.0-5.0); BG FRACTION INSPIRED OXYGEN 50; BG HCO3 ACT 29.6 mmol/L (22.0-26.0); BG METHEMOGLOBIN 0.3 % (0.0-1.5); BG OXYGEN SATURATION 98.8 % (92.0-98.5); BG OXYHEMOGLOBIN 98.2 % (94.0-97.0); BG PCO2 47.5 mmHg (35.0-45.0); BG PH 7.413 (7.350-7.450); BG PO2 147.8 mmHg (75.0-100.0); BG SAMPLE SITE RIGHT RADIAL; BG VENT MODE MASK - BIPAP; BG VENT RATE 16 set
[2018-07-30] MEDS ORDERED: VANCOMYCIN 2,000 MG in DEXT 5% WATER 500 ML IV NR (15:00)
[2018-07-30] MEDS: CEFEPIME 2,000 MG in DEXT 5% WATER 100 ML IV SCH (15:06)
[2018-07-30 15:45] LABS: CLARITY URINE TURBID (CLEAR); COLOR URINE YELLOW (YELLOW); KETONES URINE NEGATIVE (NEGATIVE); LEUKOCYTE ESTERASE URINE 3+ (NEGATIVE); NITRITE URINE NEGATIVE (NEGATIVE); OCCULT BLOOD URINE 3+ (NEGATIVE); PH URINE 6.5 (4.5-8.0); PROTEIN URINE TRACE (NEGATIVE); SPECIFIC GRAVITY URINE 1.013 (1.005-1.030)
[2018-07-30 18:08] LABS: BG BASE EXCESS 2.8 mmol/L (-2.0-2.0); BG CARBOXYHEMOGLOBIN 0.1 % (0.5-1.5); BG FRACTION INSPIRED OXYGEN 32; BG HCO3 ACT 28.1 mmol/L (22.0-26.0); BG METHEMOGLOBIN 0.4 % (0.0-1.5); BG OXYHEMOGLOBIN 97.5 % (94.0-97.0); BG PCO2 45.6 mmHg (35.0-45.0); BG PH 7.407 (7.350-7.450); BG PO2 112.5 mmHg (75.0-100.0); BG SAMPLE SITE RIGHT RADIAL; BG TOTAL HEMOGLOBIN 12.3 g/dL (12.0-18.0); BG VENT MODE NASAL CANNULA
[2018-07-30] MEDS: LACTULOSE 20G/30ML UDC PO SCH (18:16)
[2018-07-31] VITALS (13 sets, daily range): BP systolic 103–153; BP diastolic 61–87
[2018-07-31] MEDS: IPRATROPIUM/ALBUTEROL 0.5-3(2.5)MG/3ML NEB HHN SCH ×6 (00:50→20:41)
[2018-07-31] MEDS: ACETYLCYSTEINE 100MG/ML 10% VIAL 4ML INH SCH ×3 (00:51→16:44)
[2018-07-31] MEDS: CEFEPIME 2,000 MG in DEXT 5% WATER 100 ML IV SCH ×2 (01:11→13:05)
[2018-07-31] MEDS: BLOOD SUGAR DIAGNOSTIC STRIP TEST SCH ×4 (06:11→20:48)
[2018-07-31 06:40] LABS: BASOPHILS % 0.7 % (0.0-2.0); EOSINOPHILS % 1.9 % (0.0-5.0); HEMATOCRIT. 35.1 % (42.0-52.0); HEMOGLOBIN. 11.6 g/dL (14.0-18.0); LYMPHOCYTES % 17.8 % (20.0-50.0); MEAN CORPUSCULAR HEMOGLOBIN 29.8 pg (28.0-32.0); MEAN CORPUSCULAR VOLUME 89.6 fL (80.0-94.0); MEAN PLATELET VOLUME 8.2 fl (7.4-10.4); MONOCYTES % 9.5 % (2.0-8.0); NEUTROPHILS % 70.1 % (40.0-76.0); PLATELET 285 x1000/uL (130-400); RED BLOOD CELL COUNT 3.91 mill/uL (4.7-6.1); RED CELL DISTRIBUTION WIDTH 14.6 % (11.6-14.6)
[2018-07-31] MEDS: INSULIN LISPRO 100 UNITS/ML SUBCUT SCH ×4 (07:03→20:47)
[2018-07-31] MEDS: DOCUSATE SODIUM SUGAR FREE 100MG/10ML UDC NG SCH (08:17)
[2018-07-31] MEDS: LACTULOSE 20G/30ML UDC PO SCH (08:25)
[2018-07-31] MEDS: FAMOTIDINE 20MG TABLET PO SCH ×2 (08:25→20:46)
[2018-07-31] MEDS: VANCOMYCIN 1 G PREMIX 200 ML IV SCH (08:25)
[2018-07-31] MEDS: POTASSIUM CHLORIDE 20MEQ/PACKET PO SCH ×2 (08:25→16:09)
[2018-07-31] MEDS: ENOXAPARIN 40MG/0.4ML SYR SUBCUT SCH (08:26)
[2018-07-31] MEDS: AMLODIPINE 5MG TABLET PO SCH ×2 (08:26→20:47)
[2018-07-31] MEDS: DEXT 5%/0.45% NACL 1000ML 1,000 ML IV SCH (13:51)
[2018-08-01] VITALS (12 sets, daily range): BP systolic 111–153; BP diastolic 48–94
[2018-08-01] MEDS: IPRATROPIUM/ALBUTEROL 0.5-3(2.5)MG/3ML NEB HHN SCH ×6 (00:29→20:08)
[2018-08-01] MEDS: ACETYLCYSTEINE 100MG/ML 10% VIAL 4ML INH SCH ×3 (00:30→16:43)
[2018-08-01] MEDS: CEFEPIME 2,000 MG in DEXT 5% WATER 100 ML IV SCH ×2 (01:06→14:36)
[2018-08-01] MEDS: VANCOMYCIN 1 G PREMIX 200 ML IV SCH (02:07)
[2018-08-01] MEDS: BLOOD SUGAR DIAGNOSTIC STRIP TEST SCH ×4 (06:02→21:00)
[2018-08-01 06:15] LABS: BASOPHILS % 0.6 % (0.0-2.0); EOSINOPHILS % 2.5 % (0.0-5.0); HEMATOCRIT. 33.8 % (42.0-52.0); HEMOGLOBIN. 11.4 g/dL (14.0-18.0); MEAN CORPUSCULAR HEMOGLOBIN 30.4 pg (28.0-32.0); MEAN PLATELET VOLUME 8.4 fl (7.4-10.4); NEUTROPHILS % 63.9 % (40.0-76.0); PLATELET 265 x1000/uL (130-400); RED BLOOD CELL COUNT 3.75 mill/uL (4.7-6.1)
[2018-08-01 06:34] LABS: CHLORIDE 110 mEq/L (98-107)
[2018-08-01] MEDS: INSULIN LISPRO 100 UNITS/ML SUBCUT SCH ×4 (06:50→21:00)
[2018-08-01] MEDS: DEXT 5%/0.45% NACL 1000ML 1,000 ML IV SCH (08:30)
[2018-08-01] MEDS: DOCUSATE SODIUM SUGAR FREE 100MG/10ML UDC NG SCH (09:00)
[2018-08-01] MEDS: CLOPIDOGREL 75MG TABLET PO SCH (10:40)
[2018-08-01] MEDS: POTASSIUM CHLORIDE 20MEQ/PACKET PO SCH ×2 (10:40→17:00)
[2018-08-01] MEDS: FAMOTIDINE 20MG TABLET PO SCH ×2 (10:40→22:09)
[2018-08-01] MEDS: AMLODIPINE 5MG TABLET PO SCH ×2 (10:40→22:09)
[2018-08-01] MEDS: LACTULOSE 20G/30ML UDC PO SCH (10:40)
[2018-08-01] MEDS: ENOXAPARIN 40MG/0.4ML SYR SUBCUT SCH (10:41)
[2018-08-01] MEDS: VANCOMYCIN 1500MG in DEXTROSE 5% WATER 250ML IV SCH (22:09)
[2018-08-02] VITALS (19 sets, daily range): BP systolic 114–161; BP diastolic 57–83
[2018-08-02] MEDS: ACETYLCYSTEINE 100MG/ML 10% VIAL 4ML INH SCH ×3 (00:01→09:15)
[2018-08-02] MEDS: IPRATROPIUM/ALBUTEROL 0.5-3(2.5)MG/3ML NEB HHN SCH ×6 (00:49→20:16)
[2018-08-02] MEDS: CEFEPIME 2,000 MG in DEXT 5% WATER 100 ML IV SCH ×2 (01:43→13:36)
[2018-08-02] MEDS: DEXT 5%/0.45% NACL 1000ML 1,000 ML IV SCH (04:30)
[2018-08-02] MEDS: INSULIN LISPRO 100 UNITS/ML SUBCUT SCH ×4 (06:02→21:00)
[2018-08-02] MEDS: BLOOD SUGAR DIAGNOSTIC STRIP TEST SCH ×4 (06:03→22:01)
[2018-08-02] MEDS: DOCUSATE SODIUM SUGAR FREE 100MG/10ML UDC NG SCH ×2 (09:00→10:08)
[2018-08-02] MEDS: ENOXAPARIN 40MG/0.4ML SYR SUBCUT SCH (09:20)
[2018-08-02] MEDS: LACTULOSE 20G/30ML UDC PO SCH (10:08)
[2018-08-02] MEDS: CLOPIDOGREL 75MG TABLET PO SCH (10:09)
[2018-08-02] MEDS: FAMOTIDINE 20MG TABLET PO SCH ×2 (10:09→21:49)
[2018-08-02] MEDS: POTASSIUM CHLORIDE 20MEQ/PACKET PO SCH ×2 (10:09→18:27)
[2018-08-02] MEDS: AMLODIPINE 5MG TABLET PO SCH ×2 (10:11→21:49)
[2018-08-02] MEDS: NEBIVOLOL HCL 5 MG TABLET PO SCH (13:34)
[2018-08-02] MEDS: ASPIRIN 81MG EC TABLET PO SCH (13:35)
[2018-08-02] MEDS ORDERED: ATORVASTATIN CALCIUM 10MG TABLET PO SCH (21:00)
[2018-08-02] MEDS: VANCOMYCIN 1500MG in DEXTROSE 5% WATER 250ML IV SCH (21:49)
[2018-08-03] VITALS (9 sets, daily range): BP systolic 108–142; BP diastolic 69–80
[2018-08-03] MEDS: DEXT 5%/0.45% NACL 1000ML 1,000 ML IV SCH (00:30)
[2018-08-03] MEDS: IPRATROPIUM/ALBUTEROL 0.5-3(2.5)MG/3ML NEB HHN SCH ×4 (00:40→12:32)
[2018-08-03] MEDS: CEFEPIME 2,000 MG in DEXT 5% WATER 100 ML IV SCH ×2 (02:11→14:08)
[2018-08-03] MEDS: BLOOD SUGAR DIAGNOSTIC STRIP TEST SCH ×2 (05:50→12:03)
[2018-08-03] MEDS: INSULIN LISPRO 100 UNITS/ML SUBCUT SCH ×2 (05:57→11:50)
[2018-08-03 07:19] LABS: BASOPHILS % 1.2 % (0.0-2.0); HEMATOCRIT. 37.3 % (42.0-52.0); HEMOGLOBIN. 12.6 g/dL (14.0-18.0); LYMPHOCYTES % 19.6 % (20.0-50.0); MEAN CORPUSCULAR HEMOGLOBIN 30.4 pg (28.0-32.0); MEAN CORPUSCULAR VOLUME 90.1 fL (80.0-94.0); MEAN PLATELET VOLUME 8.8 fl (7.4-10.4); MONOCYTES % 11.8 % (2.0-8.0); NEUTROPHILS % 64.4 % (40.0-76.0); PLATELET 259 x1000/uL (130-400); RED BLOOD CELL COUNT 4.14 mill/uL (4.7-6.1); RED CELL DISTRIBUTION WIDTH 14.3 % (11.6-14.6)
[2018-08-03 07:41] LABS: CHLORIDE 110 mEq/L (98-107)
[2018-08-03] MEDS: NEBIVOLOL HCL 5 MG TABLET PO SCH (09:00)
[2018-08-03] MEDS: AMLODIPINE 5MG TABLET PO SCH (09:00)
[2018-08-03] MEDS: ENOXAPARIN 40MG/0.4ML SYR SUBCUT SCH (09:00)
[2018-08-03] MEDS: LACTULOSE 20G/30ML UDC PO SCH (09:00)
[2018-08-03] MEDS: POTASSIUM CHLORIDE 20MEQ/PACKET PO SCH (09:00)
[2018-08-03] MEDS: FAMOTIDINE 20MG TABLET PO SCH (09:00)
[2018-08-03] MEDS: ASPIRIN 81MG EC TABLET PO SCH (09:00)
[2018-08-03] MEDS: DOCUSATE SODIUM SUGAR FREE 100MG/10ML UDC NG SCH (09:00)
[2018-08-03] MEDS: CLOPIDOGREL 75MG TABLET PO SCH (09:00)
== END 2018-08-03 16:04 | DRG 720 ==
LOC: ER 01:18 → CVICU 02:22 → EDBEDREQ 02:25 → EDBEDREQSVC 02:25 → EDBEDREQTM 02:25 → ENRESERV 03:13 → 3WST 07-28 15:54
PROVIDERS: ADMIT Family Medicine Adult Medicine; ATTEND Family Medicine Adult Medicine
PROC: 5A1955Z Respiratory Ventilation, Greater than 96 Consecutive Hours (ICD-10-PCS; principal; 2018-07-19)
PROC: 0BH17EZ Insertion of Endotracheal Airway into Trachea, Via Natural or Artificial Opening (ICD-10-PCS; 2018-07-19)
PROC: 02HV33Z Insertion of Infusion Device into Superior Vena Cava, Percutaneous Approach (ICD-10-PCS; 2018-07-19)
PROC: B548ZZA Ultrasonography of Superior Vena Cava, Guidance (ICD-10-PCS; 2018-07-19)
PROC: 0T943ZZ Drainage of Left Kidney Pelvis, Percutaneous Approach (ICD-10-PCS; 2018-07-20)
PROC: BT121ZZ Fluoroscopy of Left Kidney using Low Osmolar Contrast (ICD-10-PCS; 2018-07-20)
PROC: 4A00X4Z Measurement of Central Nervous Electrical Activity, External Approach (ICD-10-PCS; 2018-07-26)
PROC: 5A09357 Assistance with Respiratory Ventilation, Less than 24 Consecutive Hours, Continuous Positive Airway Pressure (ICD-10-PCS; 2018-07-29)
DX: A41.59 Other Gram-negative sepsis (principal); N17.0 Acute kidney failure with tubular necrosis; J96.01 Acute respiratory failure with hypoxia; R65.21 Severe sepsis with septic shock; G92 Toxic encephalopathy; Z99.11 Dependence on respirator [ventilator] status; E46 Unspecified protein-calorie malnutrition; J18.9 Pneumonia, unspecified organism; E72.20 Disorder of urea cycle metabolism, unspecified; D69.6 Thrombocytopenia, unspecified; E87.6 Hypokalemia; N18.9 Chronic kidney disease, unspecified; E11.22 Type 2 diabetes mellitus with diabetic chronic kidney disease; E66.9 Obesity, unspecified; E87.2 Acidosis; E78.1 Pure hyperglyceridemia; F03.90 Unspecified dementia, unspecified severity, without behavioral disturbance, psychotic disturbance, mood disturbance, and anxiety; I25.10 Atherosclerotic heart disease of native coronary artery without angina pectoris; I48.91 Unspecified atrial fibrillation; B96.4 Proteus (mirabilis) (morganii) as the cause of diseases classified elsewhere; D64.9 Anemia, unspecified; R13.10 Dysphagia, unspecified; E78.5 Hyperlipidemia, unspecified; R74.0 Nonspecific elevation of levels of transaminase and lactic acid dehydrogenase [LDH]; N21.0 Calculus in bladder; N13.6 Pyonephrosis; K43.9 Ventral hernia without obstruction or gangrene; G93.89 Other specified disorders of brain; R47.01 Aphasia; R47.1 Dysarthria and anarthria; G81.94 Hemiplegia, unspecified affecting left nondominant side; K59.00 Constipation, unspecified; I49.3 Ventricular premature depolarization; I50.9 Heart failure, unspecified; I13.0 Hypertensive heart and chronic kidney disease with heart failure and stage 1 through stage 4 chronic kidney disease, or unspecified chronic kidney disease; R41.4 Neurologic neglect syndrome; L85.3 Xerosis cutis; I49.1 Atrial premature depolarization; I25.2 Old myocardial infarction; Z87.442 Personal history of urinary calculi; Z78.1 Physical restraint status; Z86.73 Personal history of transient ischemic attack (TIA), and cerebral infarction without residual deficits; Z79.899 Other long term (current) drug therapy; Z68.39 Body mass index [BMI] 39.0-39.9, adult
CPT/HCPCS: 31500; 36415; 36569; 36600; 50432; 71045; 71250; 74018; 74176; 76705; 76770; 76937; 80048; 80061; 80076; 80202; 80305; 80320; 82140; 82375; 82550; 82570; 82607; 82746; 82805; 82962; 83036; 83605; 83735; 83880; 84100; 84145; 84146; 84156; 84439; 84443; 84481; 84484; 87070; 87077; 87186; 92610; 93005; 93306; 93880; 94002; 94003; 94640; 94660; 96374; 96375; 97162; 97164; 99291; A6261; C1725; C1729; C1769; J0290; J0690; J0692; J0696; J1650; J1815; J1940; J2060; J2250; J2370; J2405; J2543; J2704; J2930; J3010; J3370; J3480; J3490; J7030; J7040; J7042; J7050; J7060; J7608; J7620; Q9967; G0480

== ENCOUNTER 2024-01-20 18:13 | Inpatient (IN) | payer MEDICARE, MEDICAID ==
[~2024-01-20] VITALS: Ht 182.9 cm; Wt 111.6 kg
[~2024-01-20 18:13] MED LIST: ACET-3163 PO; AMLO5TAB88 GT; ASCO-339 GT; ASPI-1406 GT; ATOR40TA70 GT; CLON0.1T PO; DOCU250C14 GT; INSU100I28 SQ; LACT10SO7 GT; MULT-1146 GT; OMEP40CA20 GT; RISP05 PO; TAMS-11 PO
[2024-01-20] MEDS: SODIUM CHLORIDE 0.9% (SEPSIS BOLUS) IV ONE (18:56)
[2024-01-20 19:08] LABS: BASOPHILS % 0.5 % (0.0-2.0); EOSINOPHILS % 3.2 % (0.0-5.0); HEMATOCRIT. 50.4 % (42.0-52.0); HEMOGLOBIN. 16.9 g/dL (14.0-18.0); LYMPHOCYTES % 27.1 % (20.0-50.0); MEAN CORPUSCULAR HEMOGLOBIN 31.4 pg (28.0-32.0); MEAN CORPUSCULAR HGB CONC 33.5 g/dL (31.0-37.0); MEAN CORPUSCULAR VOLUME 93.9 fL (80.0-94.0); MEAN PLATELET VOLUME 9.4 fl (7.4-10.4); MONOCYTES % 10.8 % (2.0-8.0); NEUTROPHILS % 58.4 % (40.0-76.0); PLATELET 148 x1000/uL (130-400); RED BLOOD CELL COUNT 5.37 mill/uL (4.7-6.1); RED CELL DISTRIBUTION WIDTH 14.1 % (11.6-14.6); WHITE BLOOD COUNT 7.9 x1000/uL (4.5-11.0)
[2024-01-20 19:12] LABS: CHLORIDE 106 mEq/L (98-107); POTASSIUM 4.1 mEq/L (3.5-5.1); SODIUM 142 mEq/L (136-145)
[2024-01-20 19:13] LABS: CARBON DIOXIDE 25 mEq/L (21-32)
[2024-01-20 19:14] LABS: CALCIUM 10.4 mg/dL (8.7-10.4)
[2024-01-20 19:18] LABS: CREATININE 1.2 mg/dL (0.6-1.3); GLUCOSE 102 mg/dL (70-105); UREA NITROGEN BLOOD 21 mg/dL (9-23)
[2024-01-20 19:21] LABS: LACTIC ACID 2.2 mmol/L (0.4-2.0)
[2024-01-20] MEDS: CEFTRIAXONE 1GM/50ML 50 ML IV ONE (19:23)
[2024-01-20 19:26] LABS: PROTHROMBIN TIME 10.9 sec (9.6-11.0)
[2024-01-20 22:37] LABS: CLARITY URINE CLOUDY (CLEAR); COLOR URINE YELLOW (YELLOW); GLUCOSE URINE NEGATIVE (NEGATIVE); KETONES URINE NEGATIVE (NEGATIVE); LEUKOCYTE ESTERASE URINE 3+ (NEGATIVE); NITRITE URINE POSITIVE (NEGATIVE); OCCULT BLOOD URINE 2+ (NEGATIVE); PH URINE 7.5 (4.5-8.0); PROTEIN URINE 2+ (NEGATIVE); SPECIFIC GRAVITY URINE 1.015 (1.005-1.030)
[2024-01-20] MEDS: AZITHROMYCIN 500MG/250ML 250 ML IV SCH (22:42)
[2024-01-20 22:53] LABS: WBC URINE 50-100 /hpf (0-2)
[2024-01-20 22:54] LABS: BACTERIA URINE 1+; RBC URINE 25-50 /hpf (0-2); SQUAMOUS EPITHELIAL CELL URINE FEW /lpf (RARE/1+)
[2024-01-21] VITALS (7 sets, daily range): BP systolic 123–140; BP diastolic 69–76; PULSE 77–88; RESP 18–20; TEMP 36.28068–36.78072; O2SAT 96–100
[2024-01-21] MEDS ORDERED: DEXTROSE 50% WATER 50ML SYRINGE IV PRN (14:30)
[2024-01-21] MEDS ORDERED: ACETAMINOPHEN 325MG TABLET PO PRN ×2 (14:45)
[2024-01-21] MEDS ORDERED: ONDANSETRON HCL 4MG/2ML INJ IV PRN (14:45)
[2024-01-21] MEDS ORDERED: DOCUSATE SODIUM 100MG CAPSULE PO PRN (14:45)
[2024-01-21] MEDS: PANTOPRAZOLE 40MG DR TABLET PO SCH (14:45)
[2024-01-21] MEDS: SODIUM CHLORIDE 0.9% (SEPSIS BOLUS) IV ONE (15:38)
[2024-01-21] MEDS: BLOOD SUGAR DIAGNOSTIC STRIP TEST SCH (16:02)
[2024-01-21] MEDS ORDERED: DOCUSATE SODIUM SUGAR FREE 100MG/10ML UDC PO PRN (16:45)
[2024-01-21] MEDS: PANTOPRAZOLE SODIUM 40 MG/VIAL IV SCH (16:45)
[2024-01-21] MEDS ORDERED: ACETAMINOPHEN 650MG/20.3ML UDC PO PRN (16:45)
[2024-01-21] MEDS: AMPICILLIN SOD/SULBACTAM NA 3 G in SODIUM CHLORIDE 0.9% 100 ML IV SCH (16:46)
[2024-01-21] MEDS: INSULIN LISPRO 100 UNITS/ML SUBCUT SCH (17:15)
[2024-01-21] MEDS: TAMSULOSIN HCL 0.4MG SR CAPSULE PO SCH (21:00)
[2024-01-21 22:38] LABS: AMMONIA 42 uMol/L (<32)
[2024-01-21 22:41] LABS: T4 FREE 1.67 ng/dL (0.89-1.76); VITAMIN B12 SERUM 1485 pg/mL (211-911)
[2024-01-21 22:43] LABS: THYROID STIMULATING HORMONE 1.75 uIU/mL (0.55-4.78)
[2024-01-21 22:58] LABS: FOLIC ACID (FOLATE) SERUM > 20.00 ng/mL (>5.38)
[2024-01-22] VITALS: BP 163/86; PULSE 93; RESP 16; TEMP 36.28068; O2SAT 96
[2024-01-22 04:00] VITALS: BP 150/90; PULSE 90; RESP 17; TEMP 36.3918; O2SAT 96
[2024-01-22 07:10] LABS: CHLORIDE 110 mEq/L (98-107); POTASSIUM 3.7 mEq/L (3.5-5.1); SODIUM 143 mEq/L (136-145)
[2024-01-22 07:11] LABS: CALCIUM 9.7 mg/dL (8.7-10.4); CARBON DIOXIDE 25 mEq/L (21-32)
[2024-01-22 07:16] LABS: CREATININE 1.1 mg/dL (0.6-1.3); GLUCOSE 126 mg/dL (70-105)
[2024-01-22 07:17] LABS: BASOPHILS % 0.4 % (0.0-2.0); EOSINOPHILS % 3.7 % (0.0-5.0); HEMOGLOBIN. 15.4 g/dL (14.0-18.0); LYMPHOCYTES % 22.3 % (20.0-50.0); MEAN CORPUSCULAR HEMOGLOBIN 31.3 pg (28.0-32.0); MEAN CORPUSCULAR HGB CONC 33.5 g/dL (31.0-37.0); MEAN CORPUSCULAR VOLUME 93.4 fL (80.0-94.0); MEAN PLATELET VOLUME 9.1 fl (7.4-10.4); MONOCYTES % 8.4 % (2.0-8.0); NEUTROPHILS % 65.2 % (40.0-76.0); PLATELET 144 x1000/uL (130-400); RED BLOOD CELL COUNT 4.93 mill/uL (4.7-6.1); RED CELL DISTRIBUTION WIDTH 14.1 % (11.6-14.6); UREA NITROGEN BLOOD 15 mg/dL (9-23); WHITE BLOOD COUNT 8.6 x1000/uL (4.5-11.0)
[2024-01-22 07:18] LABS: ALANINE AMINOTRANSFERASE 91 IU/L (10-49); ALBUMIN 3.6 g/dL (3.2-4.8); ASPARTATE AMINOTRANSFERASE 61 IU/L (<34)
[2024-01-22 07:19] LABS: BILIRUBIN TOTAL 0.8 mg/dL (0.1-1.0); PROTEIN TOTAL 7.4 g/dL (6.0-8.3)
[2024-01-22] MEDS ORDERED: DOCUSATE SODIUM 250MG CAPSULE PO SCH (09:00)
[2024-01-22] MEDS ORDERED: ASPIRIN 81MG EC TABLET PO SCH (09:00)
[2024-01-22] MEDS: ASPIRIN 81MG TABLET PO SCH (11:11)
[2024-01-22] MEDS: DOCUSATE SODIUM SUGAR FREE 100MG/10ML UDC PO SCH (11:11)
[2024-01-22] MEDS: ATORVASTATIN CALCIUM 40MG TABLET GT SCH (11:12)
[2024-01-22] MEDS: LACTULOSE 20G/30ML UDC PO SCH (11:12)
[2024-01-22 20:00] VITALS: BP 147/87; PULSE 98; RESP 18; TEMP 37.44744; O2SAT 97
[2024-01-23] VITALS: BP 138/79; PULSE 83; RESP 20; TEMP 36.50292; O2SAT 97
[2024-01-23 04:00] VITALS: BP 140/80; PULSE 81; RESP 18; TEMP 36.3918; O2SAT 97
[2024-01-23 08:00] VITALS: BP 129/78; PULSE 72; RESP 20; TEMP 36.6696; O2SAT 98
[2024-01-23] MEDS: BISACODYL 10MG SUPP PR NR (11:30)
[2024-01-23 12:00] VITALS: BP 143/86; PULSE 83; RESP 20; TEMP 36.05844; O2SAT 95
[2024-01-23 16:00] VITALS: BP 130/90; PULSE 96; RESP 15; TEMP 36.6696; O2SAT 97
[2024-01-23 16:52] LABS: AMMONIA 31 uMol/L (<32)
[2024-01-23] MEDS: CLONIDINE 0.1MG TABLET PO PRN (22:22)
[2024-01-24] VITALS: BP 154/92; PULSE 96; RESP 18; TEMP 37.33632; O2SAT 96
[2024-01-24 04:00] VITALS: BP 147/83; PULSE 85; RESP 18; TEMP 37.11408; O2SAT 98
[2024-01-24 06:06] LABS: CARBON DIOXIDE 26 mEq/L (21-32); CHLORIDE 114 mEq/L (98-107); SODIUM 149 mEq/L (136-145)
[2024-01-24 06:08] LABS: CALCIUM 9.8 mg/dL (8.7-10.4)
[2024-01-24 06:10] LABS: BASOPHILS % 0.5 % (0.0-2.0); EOSINOPHILS % 1.6 % (0.0-5.0); HEMATOCRIT. 47.8 % (42.0-52.0); MEAN CORPUSCULAR HEMOGLOBIN 31.7 pg (28.0-32.0); MEAN CORPUSCULAR HGB CONC 33.4 g/dL (31.0-37.0); MEAN CORPUSCULAR VOLUME 94.8 fL (80.0-94.0); MEAN PLATELET VOLUME 9.2 fl (7.4-10.4); MONOCYTES % 11.9 % (2.0-8.0); PLATELET 143 x1000/uL (130-400); RED BLOOD CELL COUNT 5.05 mill/uL (4.7-6.1); RED CELL DISTRIBUTION WIDTH 14.3 % (11.6-14.6); WHITE BLOOD COUNT 10.6 x1000/uL (4.5-11.0)
[2024-01-24 06:12] LABS: CREATININE 1.1 mg/dL (0.6-1.3); GLUCOSE 118 mg/dL (70-105)
[2024-01-24 06:13] LABS: UREA NITROGEN BLOOD 19 mg/dL (9-23)
[2024-01-24 08:00] VITALS: BP 146/86; PULSE 88; RESP 18; TEMP 36.72516; O2SAT 98
[2024-01-24 12:00] VITALS: BP 120/81; PULSE 87; RESP 20; TEMP 36.72516; O2SAT 100
[2024-01-24 16:00] VITALS: BP 136/87; PULSE 86; RESP 18; TEMP 36.50292; O2SAT 99
[2024-01-24 20:11] VITALS: BP 150/83; PULSE 86; RESP 20; TEMP 37.28076; O2SAT 98
[2024-01-25] VITALS (7 sets, daily range): BP systolic 130–156; BP diastolic 53–87; PULSE 86–101; RESP 18–22; TEMP 36.33624–37.44744; O2SAT 96–99
[2024-01-25] MEDS: IPRATROPIUM/ALBUTEROL 0.5-3(2.5)MG/3ML NEB HHN SCH (21:26)
[2024-01-26] VITALS (10 sets, daily range): BP systolic 138–175; BP diastolic 73–98; PULSE 81–103; RESP 17–22; TEMP 36.33624–37.66968; O2SAT 95–100
[2024-01-26] MEDS: IPRATROPIUM/ALBUTEROL 0.5-3(2.5)MG/3ML NEB HHN PRN (00:47)
[2024-01-26] MEDS: ACETYLCYSTEINE 200MG/ML 20% VIAL 4ML INH SCH (00:47)
[2024-01-27] VITALS (9 sets, daily range): BP systolic 123–179; BP diastolic 67–101; PULSE 79–113; RESP 16–21; TEMP 36.28068–37.05852; O2SAT 95–100
[2024-01-28] VITALS (8 sets, daily range): BP systolic 153–177; BP diastolic 93–107; PULSE 57–133; RESP 18–21; TEMP 36.50292–37.55856; O2SAT 93–100
[2024-01-29] VITALS (74 sets, daily range): BP systolic 85–179; BP diastolic 45–111; PULSE 96–149; RESP 16–31; TEMP 36.83628–38.3364; O2SAT 78–100
[2024-01-29] MEDS: METOPROLOL TARTRATE 5MG/5ML VIAL IV PRN (03:03)
[2024-01-29] MEDS: METOPROLOL TARTRATE 25MG TABLET PO SCH (05:59)
[2024-01-29 10:08] LABS: BG BASE EXCESS -2.4 mmol/L (-2.0-3.0); BG CARBOXYHEMOGLOBIN 0.2 % (0.5-1.5); BG DEOXYHEMOGLOBIN 1.2 % (0.0-5.0); BG FRACTION INSPIRED OXYGEN 100; BG HCO3 ACT 21.9 mmol/L (21.0-28.0); BG METHEMOGLOBIN 0.3 % (0.5-1.5); BG OXYGEN SATURATION 98.8 % (94.0-98.0); BG OXYHEMOGLOBIN 98.3 % (94.0-98.0); BG PCO2 37.1 mmHg (35.0-48.0); BG PH 7.389 (7.350-7.450); BG PO2 140.9 mmHg (83.0-108.0); BG SAMPLE SITE RIGHT RADIAL; BG TOTAL HEMOGLOBIN 17.9 g/dL (13.5-17.5); BG VENT MODE VENT - AC
[2024-01-29] MEDS: ACETAMINOPHEN 650MG/20.3ML UDC PO PRN (11:07)
[2024-01-29] MEDS: PIPERACILLIN/TAZO 3.375G/50ML 50 ML IV SCH (11:10)
[2024-01-29] MEDS: DILTIAZEM HCL 5MG/ML 5ML VIAL IV NR (11:11)
[2024-01-29] MEDS: PROPOFOL 10MG/ML 100ML 100 ML IV PRN (11:29)
[2024-01-29] MEDS ORDERED: PHENYLEPHRINE 50MG/250ML PMX 250 ML IV PRN (13:30)
[2024-01-29] MEDS ORDERED: PHENYLEPHRINE 100 MG in DEXT 5% WATER 240 ML IV PRN (14:00)
[2024-01-29 16:58] LABS: BASOPHILS % 0.2 % (0.0-2.0); HEMOGLOBIN. 16.3 g/dL (14.0-18.0); LYMPHOCYTES % 10.4 % (20.0-50.0); MEAN CORPUSCULAR HEMOGLOBIN 31.2 pg (28.0-32.0); MEAN CORPUSCULAR HGB CONC 32.7 g/dL (31.0-37.0); MEAN CORPUSCULAR VOLUME 95.6 fL (80.0-94.0); MONOCYTES % 8.2 % (2.0-8.0); NEUTROPHILS % 81.2 % (40.0-76.0); RED BLOOD CELL COUNT 5.24 mill/uL (4.7-6.1); RED CELL DISTRIBUTION WIDTH 14.9 % (11.6-14.6); WHITE BLOOD COUNT 28.3 x1000/uL (4.5-11.0)
[2024-01-29 16:59] LABS: DIFFERENTIAL COMMENT 1
[2024-01-29 17:05] LABS: POTASSIUM 3.6 mEq/L (3.5-5.1)
[2024-01-29 17:06] LABS: CALCIUM 9.8 mg/dL (8.7-10.4)
[2024-01-29 17:13] LABS: AMMONIA 23 uMol/L (<32)
[2024-01-29 17:15] LABS: CREATININE 2.8 mg/dL (0.6-1.3)
[2024-01-29] MEDS: ENOXAPARIN 30MG/0.3ML SYR SUBCUT SCH (17:27)
[2024-01-29 18:09] LABS: MEAN PLATELET VOLUME 9.6 fl (7.4-10.4); PLATELET 140 x1000/uL (130-400)
[2024-01-29 22:23] LABS: CHLORIDE 126 mEq/L (98-107); POTASSIUM 3.4 mEq/L (3.5-5.1)
[2024-01-29 22:24] LABS: CALCIUM 9.9 mg/dL (8.7-10.4); CARBON DIOXIDE 27 mEq/L (21-32)
[2024-01-29 22:29] LABS: CREATININE 2.7 mg/dL (0.6-1.3); GLUCOSE 146 mg/dL (70-105); UREA NITROGEN BLOOD 52 mg/dL (9-23)
[2024-01-29 22:31] LABS: PHOSPHORUS 3.4 mg/dL (2.5-4.9)
[2024-01-29 22:39] LABS: SODIUM 164 mEq/L (136-145)
[2024-01-29 22:40] LABS: TROPONIN I HIGH SENSITIVITY 121 ng/L (3.0-53)
[2024-01-30] VITALS (67 sets, daily range): BP systolic 92–147; BP diastolic 54–93; PULSE 82–107; RESP 13–37; TEMP 36.6696–37.16964; O2SAT 96–100
[2024-01-30 06:06] LABS: BASOPHILS % 0.2 % (0.0-2.0); EOSINOPHILS % 0.1 % (0.0-5.0); HEMATOCRIT. 46.3 % (42.0-52.0); HEMOGLOBIN. 15.1 g/dL (14.0-18.0); LYMPHOCYTES % 10.9 % (20.0-50.0); MEAN CORPUSCULAR HEMOGLOBIN 31.5 pg (28.0-32.0); MEAN CORPUSCULAR HGB CONC 32.6 g/dL (31.0-37.0); MEAN CORPUSCULAR VOLUME 96.6 fL (80.0-94.0); MEAN PLATELET VOLUME 9.9 fl (7.4-10.4); NEUTROPHILS % 80.8 % (40.0-76.0); PLATELET 105 x1000/uL (130-400); RED BLOOD CELL COUNT 4.79 mill/uL (4.7-6.1); RED CELL DISTRIBUTION WIDTH 14.6 % (11.6-14.6); WHITE BLOOD COUNT 21.7 x1000/uL (4.5-11.0)
[2024-01-30 06:15] LABS: CALCIUM 9.4 mg/dL (8.7-10.4); POTASSIUM 3.6 mEq/L (3.5-5.1)
[2024-01-30 06:21] LABS: CREATININE 2.7 mg/dL (0.6-1.3)
[2024-01-30] MEDS: SODIUM CHLORIDE 0.45% 1,000 ML IV SCH (12:12)
[2024-01-30] MEDS ORDERED: CEFEPIME 2GM IN DEXT 5% 100ML IV SCH (12:15)
[2024-01-30 12:20] LABS: BG CARBOXYHEMOGLOBIN 0.3 % (0.5-1.5); BG DEOXYHEMOGLOBIN 2.1 % (0.0-5.0); BG FRACTION INSPIRED OXYGEN 40; BG HCO3 ACT 22.7 mmol/L (21.0-28.0); BG METHEMOGLOBIN 0.3 % (0.5-1.5); BG OXYGEN SATURATION 97.9 % (94.0-98.0); BG OXYHEMOGLOBIN 97.3 % (94.0-98.0); BG PCO2 35.3 mmHg (35.0-48.0); BG PH 7.427 (7.350-7.450); BG PO2 98.7 mmHg (83.0-108.0); BG SAMPLE SITE LEFT RADIAL; BG TOTAL HEMOGLOBIN 14.9 g/dL (13.5-17.5); BG VENT MODE VENT - CPAP
[2024-01-30] MEDS: METRONIDAZOLE 500 MG PREMIX 100 ML IV SCH (13:18)
[2024-01-30] MEDS: CEFEPIME 2GM/50ML DUPLEX 50 ML IV SCH (13:18)
[2024-01-30 16:43] LABS: CREATINE KINASE 1395 IU/L (46-171)
[2024-01-30 17:03] LABS: SODIUM 163 mEq/L (136-145)
[2024-01-31] VITALS (35 sets, daily range): BP systolic 87–139; BP diastolic 50–82; PULSE 70–89; RESP 11–40; TEMP 36.22512–36.89184; O2SAT 97–100
[2024-01-31] MEDS: INSULIN LISPRO 100 UNITS/ML SUBCUT SCH (05:14)
[2024-01-31] MEDS: BLOOD SUGAR DIAGNOSTIC STRIP TEST SCH (05:14)
[2024-01-31 06:24] LABS: CHLORIDE 122 mEq/L (98-107); POTASSIUM 3.3 mEq/L (3.5-5.1)
[2024-01-31 06:25] LABS: CARBON DIOXIDE 24 mEq/L (21-32)
[2024-01-31 06:26] LABS: BASOPHILS % 0.3 % (0.0-2.0); CALCIUM 8.8 mg/dL (8.7-10.4); EOSINOPHILS % 2.1 % (0.0-5.0); HEMATOCRIT. 39.1 % (42.0-52.0); HEMOGLOBIN. 12.9 g/dL (14.0-18.0); LYMPHOCYTES % 10.5 % (20.0-50.0); MEAN CORPUSCULAR HEMOGLOBIN 31.8 pg (28.0-32.0); MEAN CORPUSCULAR HGB CONC 32.9 g/dL (31.0-37.0); MEAN CORPUSCULAR VOLUME 96.6 fL (80.0-94.0); NEUTROPHILS % 80.1 % (40.0-76.0); PLATELET 95 x1000/uL (130-400); RED BLOOD CELL COUNT 4.05 mill/uL (4.7-6.1); RED CELL DISTRIBUTION WIDTH 14.7 % (11.6-14.6); WHITE BLOOD COUNT 15.4 x1000/uL (4.5-11.0)
[2024-01-31 06:30] LABS: CREATININE 1.9 mg/dL (0.6-1.3); GLUCOSE 128 mg/dL (70-105)
[2024-01-31 06:31] LABS: UREA NITROGEN BLOOD 43 mg/dL (9-23)
[2024-01-31 06:32] LABS: ALANINE AMINOTRANSFERASE 45 IU/L (10-49); ALBUMIN 2.9 g/dL (3.2-4.8); ASPARTATE AMINOTRANSFERASE 62 IU/L (<34)
[2024-01-31 06:33] LABS: BILIRUBIN TOTAL 0.4 mg/dL (0.1-1.0); PROTEIN TOTAL 5.8 g/dL (6.0-8.3)
[2024-01-31 07:45] LABS: SODIUM 157 mEq/L (136-145)
[2024-01-31] MEDS: POTASSIUM CHLORIDE 20MEQ/PACKET PO NR (09:06)
[2024-01-31] MEDS: CEFEPIME 2GM/50ML DUPLEX 50 ML IV SCH (23:36)
[2024-02-01 01:35] VITALS: BP 118/60; PULSE 80; RESP 20; TEMP 36.55848; O2SAT 97
[2024-02-01 04:00] VITALS: BP_SYST 127; BP_SYST 145; BP_DIAS 68; BP_DIAS 95; PULSE 88; PULSE 91; RESP 20; TEMP 36.55848; TEMP 36.89184; O2SAT 100; O2SAT 99
[2024-02-01 05:50] LABS: CALCIUM 8.9 mg/dL (8.7-10.4); CHLORIDE 119 mEq/L (98-107); POTASSIUM 3.3 mEq/L (3.5-5.1); SODIUM 153 mEq/L (136-145)
[2024-02-01 05:51] LABS: CARBON DIOXIDE 23 mEq/L (21-32)
[2024-02-01 05:56] LABS: CREATININE 1.5 mg/dL (0.6-1.3); GLUCOSE 145 mg/dL (70-105); UREA NITROGEN BLOOD 34 mg/dL (9-23)
[2024-02-01 05:58] LABS: PHOSPHORUS 1.7 mg/dL (2.5-4.9)
[2024-02-01 06:41] LABS: BASOPHILS % 0.2 % (0.0-2.0); EOSINOPHILS % 3.5 % (0.0-5.0); HEMATOCRIT. 41.8 % (42.0-52.0); HEMOGLOBIN. 13.7 g/dL (14.0-18.0); LYMPHOCYTES % 13.6 % (20.0-50.0); MEAN CORPUSCULAR HEMOGLOBIN 31.2 pg (28.0-32.0); MEAN CORPUSCULAR HGB CONC 32.7 g/dL (31.0-37.0); MEAN CORPUSCULAR VOLUME 95.4 fL (80.0-94.0); MEAN PLATELET VOLUME 10.6 fl (7.4-10.4); MONOCYTES % 9.2 % (2.0-8.0); NEUTROPHILS % 73.5 % (40.0-76.0); PLATELET 100 x1000/uL (130-400); RED BLOOD CELL COUNT 4.38 mill/uL (4.7-6.1); RED CELL DISTRIBUTION WIDTH 14.3 % (11.6-14.6); WHITE BLOOD COUNT 11.6 x1000/uL (4.5-11.0)
[2024-02-01] MEDS ORDERED: POTASSIUM CHLORIDE 20MEQ/PACKET PO ONE (07:45)
[2024-02-01 08:00] VITALS: BP 99/70; PULSE 81; RESP 20; TEMP 37.11408; O2SAT 100
[2024-02-01] MEDS ORDERED: DEXTROSE 5% WATER 1,000 ML IV SCH (08:00)
[2024-02-01] MEDS: FUROSEMIDE 40MG/4ML VIAL IVP SCH (09:22)
[2024-02-01] MEDS: POTASSIUM PHOSPHATE 30 MMOL in DEXT 5% WATER 490 ML IV SCH (09:23)
[2024-02-01 12:00] VITALS: BP 124/67; PULSE 66; RESP 20; TEMP 37.00296; O2SAT 99
[2024-02-01 16:00] VITALS: BP 114/71; PULSE 98; RESP 20; TEMP 37.00296; O2SAT 98
[2024-02-01 20:00] VITALS: BP 139/85; PULSE 102; RESP 22; TEMP 36.22512; O2SAT 98
[2024-02-02] VITALS: BP 133/81; PULSE 99; RESP 20; TEMP 36.55848; O2SAT 97
[2024-02-02 04:00] VITALS: BP 155/80; PULSE 93; RESP 21; TEMP 36.55848; O2SAT 100
[2024-02-02 05:56] LABS: CHLORIDE 118 mEq/L (98-107); POTASSIUM 3.3 mEq/L (3.5-5.1); SODIUM 152 mEq/L (136-145)
[2024-02-02 05:57] LABS: CARBON DIOXIDE 24 mEq/L (21-32)
[2024-02-02 06:02] LABS: CREATININE 1.5 mg/dL (0.6-1.3); GLUCOSE 118 mg/dL (70-105)
[2024-02-02 06:03] LABS: UREA NITROGEN BLOOD 33 mg/dL (9-23)
[2024-02-02 06:04] LABS: BASOPHILS % 0.3 % (0.0-2.0); EOSINOPHILS % 2.4 % (0.0-5.0); HEMATOCRIT. 41.5 % (42.0-52.0); HEMOGLOBIN. 13.8 g/dL (14.0-18.0); LYMPHOCYTES % 17.4 % (20.0-50.0); MEAN CORPUSCULAR HEMOGLOBIN 31.1 pg (28.0-32.0); MEAN CORPUSCULAR HGB CONC 33.2 g/dL (31.0-37.0); MEAN CORPUSCULAR VOLUME 93.7 fL (80.0-94.0); MEAN PLATELET VOLUME 10.6 fl (7.4-10.4); MONOCYTES % 10.1 % (2.0-8.0); NEUTROPHILS % 69.8 % (40.0-76.0); PLATELET 109 x1000/uL (130-400); RED BLOOD CELL COUNT 4.43 mill/uL (4.7-6.1); RED CELL DISTRIBUTION WIDTH 13.9 % (11.6-14.6); WHITE BLOOD COUNT 14.5 x1000/uL (4.5-11.0)
[2024-02-02 06:05] LABS: PHOSPHORUS 2.5 mg/dL (2.5-4.9)
[2024-02-02 08:00] VITALS: BP 112/68; PULSE 94; RESP 20; TEMP 36.78072; O2SAT 99
[2024-02-02] MEDS: POTASSIUM CHLORIDE 20MEQ/PACKET PO SCH (09:32)
[2024-02-02 12:00] VITALS: BP 115/68; PULSE 83; RESP 22; TEMP 36.78072; O2SAT 98
[2024-02-02 16:00] VITALS: BP 122/78; PULSE 93; RESP 20; TEMP 37.72524; O2SAT 99
[2024-02-02 20:00] VITALS: BP 145/95; PULSE 91; RESP 20; TEMP 36.55848; O2SAT 100
[2024-02-03] VITALS: BP 112/62; PULSE 80; RESP 20; TEMP 36.89184; O2SAT 100
[2024-02-03 08:00] VITALS: BP 124/64; PULSE 75; RESP 18; TEMP 36.61404; O2SAT 100
[2024-02-03 09:22] VITALS: BP 124/64; PULSE 75; RESP 19; TEMP 36.61404; O2SAT 100
[2024-02-03] MEDS: DEXTROSE 5% WATER 1,000 ML IV SCH (09:26)
[2024-02-03 11:30] LABS: BASOPHILS % 0.3 % (0.0-2.0); EOSINOPHILS % 2.4 % (0.0-5.0); HEMATOCRIT. 41.3 % (42.0-52.0); HEMOGLOBIN. 13.3 g/dL (14.0-18.0); LYMPHOCYTES % 15.3 % (20.0-50.0); MEAN CORPUSCULAR HGB CONC 32.2 g/dL (31.0-37.0); MEAN CORPUSCULAR VOLUME 96.2 fL (80.0-94.0); MEAN PLATELET VOLUME 10.3 fl (7.4-10.4); MONOCYTES % 11.5 % (2.0-8.0); NEUTROPHILS % 70.5 % (40.0-76.0); PLATELET 103 x1000/uL (130-400); RED CELL DISTRIBUTION WIDTH 14.3 % (11.6-14.6); WHITE BLOOD COUNT 12.7 x1000/uL (4.5-11.0)
[2024-02-03 11:39] VITALS: BP 125/72; PULSE 80; RESP 18; TEMP 36.61404; O2SAT 100
[2024-02-03 11:39] LABS: POTASSIUM 3.9 mEq/L (3.5-5.1)
[2024-02-03 11:45] LABS: CREATININE 1.4 mg/dL (0.6-1.3)
[2024-02-03 16:00] VITALS: BP 133/73; PULSE 74; RESP 18; TEMP 36.50292; O2SAT 100
[2024-02-03 20:00] VITALS: BP 138/72; PULSE 77; RESP 20; TEMP 36.114
[2024-02-04] VITALS: BP 140/70; PULSE 79; RESP 20; TEMP 36.22512; O2SAT 97
[2024-02-04 04:00] VITALS: BP 151/76; PULSE 84; RESP 20; TEMP 36.55848; O2SAT 100
[2024-02-04 08:00] VITALS: BP 131/59; PULSE 74; RESP 18; TEMP 36.9474; O2SAT 100
[2024-02-04] MEDS ORDERED: IPRATROPIUM/ALBUTEROL 0.5-3(2.5)MG/3ML NEB HHN PRN (10:30)
[2024-02-04 12:00] VITALS: BP 130/66; PULSE 89; RESP 20; TEMP 36.9474; O2SAT 100
[2024-02-04 16:00] VITALS: BP 135/60; PULSE 78; RESP 20; TEMP 37.11408; O2SAT 98
[2024-02-04 20:00] VITALS: BP 144/71; PULSE 102; RESP 20; TEMP 36.3918; O2SAT 99
[2024-02-04 21:54] LABS: CHLORIDE 116 mEq/L (98-107); SODIUM 149 mEq/L (136-145)
[2024-02-04 21:55] LABS: CALCIUM 8.8 mg/dL (8.7-10.4); CARBON DIOXIDE 26 mEq/L (21-32)
[2024-02-04 22:00] LABS: CREATININE 1.2 mg/dL (0.6-1.3); GLUCOSE 128 mg/dL (70-105); UREA NITROGEN BLOOD 20 mg/dL (9-23)
[2024-02-05] VITALS: BP 134/66; PULSE 94; RESP 20; TEMP 36.22512; O2SAT 99
[2024-02-05 04:00] VITALS: BP 118/74; PULSE 80; RESP 20; TEMP 36.50292; O2SAT 99
[2024-02-05 08:00] VITALS: BP 123/74; PULSE 84; RESP 17; TEMP 36.50292; O2SAT 99
[2024-02-05] MEDS: METHYLPREDNISOLONE SOD SUCC 40MG/ML (ACT-O-VIAL) IV NR (10:08)
[2024-02-05 12:00] VITALS: BP 136/76; PULSE 78; RESP 18; TEMP 36.61404; O2SAT 100
[2024-02-05 14:07] LABS: CHLORIDE 112 mEq/L (98-107); POTASSIUM 3.4 mEq/L (3.5-5.1); SODIUM 148 mEq/L (136-145)
[2024-02-05 14:08] LABS: CALCIUM 8.8 mg/dL (8.7-10.4); CARBON DIOXIDE 27 mEq/L (21-32)
[2024-02-05 14:13] LABS: CREATININE 1.1 mg/dL (0.6-1.3); GLUCOSE 135 mg/dL (70-105); UREA NITROGEN BLOOD 21 mg/dL (9-23)
[2024-02-05 16:38] VITALS: BP 129/85; PULSE 76; TEMP 36.6696
[2024-02-05 20:00] VITALS: BP 140/60; PULSE 88; RESP 20; TEMP 36.114; O2SAT 96
[2024-02-05] MEDS ORDERED: POTASSIUM CHLORIDE 20MEQ TABLET SR PO NR (22:45)
[2024-02-06] VITALS: BP 130/70; PULSE 78; RESP 18; TEMP 37.00296; O2SAT 98
[2024-02-06 04:00] VITALS: BP 115/59; PULSE 85; RESP 20; TEMP 37.00296; O2SAT 97
[2024-02-06] MEDS: POTASSIUM CHLORIDE 20MEQ TABLET SR PO NR (06:07)
[2024-02-06 09:43] LABS: PHOSPHORUS 1.6 mg/dL (2.5-4.9)
[2024-02-06 16:00] VITALS: BP 140/77; PULSE 71; RESP 20; TEMP 36.44736; O2SAT 96
[2024-02-06] MEDS: POTASSIUM-SODIUM PHOSPHATE POWDER PACKET PO NR (18:52)
[2024-02-06 20:00] VITALS: BP 151/67; PULSE 87; RESP 18; TEMP 37.00296; O2SAT 97
[2024-02-07] VITALS (8 sets, daily range): BP systolic 125–159; BP diastolic 60–80; PULSE 77–84; RESP 18–20; TEMP 36.33624–37.05852; O2SAT 94–98
[2024-02-07 08:06] LABS: CHLORIDE 112 mEq/L (98-107); POTASSIUM 3.5 mEq/L (3.5-5.1); SODIUM 147 mEq/L (136-145)
[2024-02-07 08:07] LABS: CALCIUM 9.1 mg/dL (8.7-10.4); CARBON DIOXIDE 28 mEq/L (21-32)
[2024-02-07 08:12] LABS: CREATININE 1.1 mg/dL (0.6-1.3); GLUCOSE 101 mg/dL (70-105); UREA NITROGEN BLOOD 27 mg/dL (9-23)
[2024-02-07 08:14] LABS: PHOSPHORUS 1.8 mg/dL (2.5-4.9)
[2024-02-07 08:29] LABS: BASOPHILS % 0.4 % (0.0-2.0); EOSINOPHILS % 2.8 % (0.0-5.0); HEMATOCRIT. 40.1 % (42.0-52.0); HEMOGLOBIN. 13.4 g/dL (14.0-18.0); LYMPHOCYTES % 26.3 % (20.0-50.0); MEAN CORPUSCULAR HEMOGLOBIN 31.2 pg (28.0-32.0); MEAN CORPUSCULAR HGB CONC 33.4 g/dL (31.0-37.0); MEAN CORPUSCULAR VOLUME 93.5 fL (80.0-94.0); MEAN PLATELET VOLUME 10.1 fl (7.4-10.4); MONOCYTES % 11.4 % (2.0-8.0); NEUTROPHILS % 59.1 % (40.0-76.0); PLATELET 164 x1000/uL (130-400); RED BLOOD CELL COUNT 4.29 mill/uL (4.7-6.1); RED CELL DISTRIBUTION WIDTH 13.8 % (11.6-14.6); WHITE BLOOD COUNT 8.5 x1000/uL (4.5-11.0)
[2024-02-07] MEDS: IPRATROPIUM/ALBUTEROL 0.5-3(2.5)MG/3ML NEB HHN SCH (10:48)
[2024-02-08] VITALS (10 sets, daily range): BP systolic 120–155; BP diastolic 77–97; PULSE 85–111; RESP 18–24; TEMP 36.3918–37.05852; O2SAT 94–100
[2024-02-08] MEDS: POTASSIUM PHOSPHATE 20 MMOL in DEXT 5% WATER 243.3333 ML IV NR (10:57)
[2024-02-09] VITALS (8 sets, daily range): BP systolic 119–150; BP diastolic 68–80; PULSE 79–111; RESP 18–22; TEMP 36.28068–37.05852; O2SAT 97–100
[2024-02-09 08:42] LABS: BASOPHILS % 0.3 % (0.0-2.0); EOSINOPHILS % 2.3 % (0.0-5.0); HEMATOCRIT. 40.4 % (42.0-52.0); HEMOGLOBIN. 13.3 g/dL (14.0-18.0); LYMPHOCYTES % 22.1 % (20.0-50.0); MEAN CORPUSCULAR HEMOGLOBIN 31.3 pg (28.0-32.0); MEAN CORPUSCULAR HGB CONC 32.8 g/dL (31.0-37.0); MEAN CORPUSCULAR VOLUME 95.3 fL (80.0-94.0); MEAN PLATELET VOLUME 9.5 fl (7.4-10.4); MONOCYTES % 10.7 % (2.0-8.0); NEUTROPHILS % 64.6 % (40.0-76.0); PLATELET 174 x1000/uL (130-400); RED BLOOD CELL COUNT 4.24 mill/uL (4.7-6.1); RED CELL DISTRIBUTION WIDTH 14.4 % (11.6-14.6); WHITE BLOOD COUNT 9.7 x1000/uL (4.5-11.0)
[2024-02-09 08:48] LABS: CHLORIDE 111 mEq/L (98-107); POTASSIUM 3.9 mEq/L (3.5-5.1); SODIUM 147 mEq/L (136-145)
[2024-02-09 08:49] LABS: CARBON DIOXIDE 29 mEq/L (21-32)
[2024-02-09 08:50] LABS: CALCIUM 9.2 mg/dL (8.7-10.4)
[2024-02-09 08:54] LABS: CREATININE 1.2 mg/dL (0.6-1.3); GLUCOSE 127 mg/dL (70-105)
[2024-02-09 08:55] LABS: UREA NITROGEN BLOOD 24 mg/dL (9-23)
[2024-02-09 08:57] LABS: PHOSPHORUS 3.2 mg/dL (2.5-4.9)
[2024-02-10] VITALS (9 sets, daily range): BP systolic 108–149; BP diastolic 60–69; PULSE 80–97; RESP 18–22; TEMP 36.6696–37.2252; O2SAT 98–100
[2024-02-11] VITALS: BP 144/76; PULSE 99; RESP 22; TEMP 36.55848; O2SAT 98
[2024-02-11 04:00] VITALS: BP 131/65; PULSE 98; RESP 20; TEMP 36.6696; O2SAT 98
[2024-02-11 08:00] VITALS: BP 140/68; PULSE 87; RESP 18; TEMP 36.3918; O2SAT 100
[2024-02-11 12:00] VITALS: BP 140/70; PULSE 91; RESP 20; TEMP 37.2252; O2SAT 99
[2024-02-11 16:00] VITALS: BP 147/76; PULSE 87; RESP 22; TEMP 37.2252; O2SAT 97
[2024-02-11 20:00] VITALS: BP 145/77; PULSE 89; RESP 16; TEMP 36.05844; O2SAT 98
[2024-02-12] VITALS: BP 136/69; PULSE 88; RESP 16; TEMP 36.33624; O2SAT 98
[2024-02-12 04:00] VITALS: BP 140/79; PULSE 98; RESP 16; TEMP 36.3918; O2SAT 98
[2024-02-12 08:00] VITALS: BP 167/77; PULSE 95; RESP 20; TEMP 37.11408; O2SAT 99
[2024-02-12 09:09] LABS: BASOPHILS % 0.5 % (0.0-2.0); EOSINOPHILS % 3.2 % (0.0-5.0); HEMATOCRIT. 38.9 % (42.0-52.0); HEMOGLOBIN. 12.9 g/dL (14.0-18.0); MEAN CORPUSCULAR HEMOGLOBIN 31.8 pg (28.0-32.0); MEAN CORPUSCULAR HGB CONC 33.2 g/dL (31.0-37.0); MEAN CORPUSCULAR VOLUME 95.8 fL (80.0-94.0); MEAN PLATELET VOLUME 10.2 fl (7.4-10.4); MONOCYTES % 11.3 % (2.0-8.0); PLATELET 177 x1000/uL (130-400); RED BLOOD CELL COUNT 4.06 mill/uL (4.7-6.1); RED CELL DISTRIBUTION WIDTH 14.1 % (11.6-14.6); WHITE BLOOD COUNT 7.6 x1000/uL (4.5-11.0)
[2024-02-12 09:17] LABS: CHLORIDE 114 mEq/L (98-107); POTASSIUM 4.6 mEq/L (3.5-5.1); SODIUM 150 mEq/L (136-145)
[2024-02-12 09:18] LABS: CALCIUM 9.6 mg/dL (8.7-10.4); CARBON DIOXIDE 30 mEq/L (21-32)
[2024-02-12 09:23] LABS: CREATININE 1.2 mg/dL (0.6-1.3); GLUCOSE 122 mg/dL (70-105); UREA NITROGEN BLOOD 23 mg/dL (9-23)
[2024-02-12 12:00] VITALS: BP 152/82; PULSE 89; RESP 20; TEMP 37.72524; O2SAT 98
[2024-02-12 14:03] VITALS: BP 150/87; PULSE 85; TEMP 98; O2SAT 98
[2024-02-12 16:00] VITALS: BP 145/78; PULSE 85; RESP 15; TEMP 37.16964; O2SAT 96
== END 2024-02-12 18:01 | DRG 720 ==
LOC: ER 18:13 → EDBEDREQ 22:10 → EDBEDREQTM 22:10 → 5WST 01-21 03:34 → 7WST 01-23 21:04 → MICUNO 01-29 07:35 → 8WST 01-31 17:23
PROVIDERS: ADMIT Family Medicine Adult Medicine; ATTEND Family Medicine Adult Medicine
PROC: 5A1945Z Respiratory Ventilation, 24-96 Consecutive Hours (ICD-10-PCS; principal; 2024-01-29)
PROC: 0BH17EZ Insertion of Endotracheal Airway into Trachea, Via Natural or Artificial Opening (ICD-10-PCS; 2024-01-29)
DX: A41.9 Sepsis, unspecified organism (principal); N17.0 Acute kidney failure with tubular necrosis; J96.01 Acute respiratory failure with hypoxia; J69.0 Pneumonitis due to inhalation of food and vomit; R65.21 Severe sepsis with septic shock; G93.41 Metabolic encephalopathy; E72.20 Disorder of urea cycle metabolism, unspecified; E87.20 Acidosis, unspecified; F03.90 Unspecified dementia, unspecified severity, without behavioral disturbance, psychotic disturbance, mood disturbance, and anxiety; Z20.822 Contact with and (suspected) exposure to COVID-19; N39.0 Urinary tract infection, site not specified; I50.9 Heart failure, unspecified; N40.0 Benign prostatic hyperplasia without lower urinary tract symptoms; R13.10 Dysphagia, unspecified; Z93.1 Gastrostomy status; G35 Multiple sclerosis; E11.22 Type 2 diabetes mellitus with diabetic chronic kidney disease; B96.5 Pseudomonas (aeruginosa) (mallei) (pseudomallei) as the cause of diseases classified elsewhere; I13.0 Hypertensive heart and chronic kidney disease with heart failure and stage 1 through stage 4 chronic kidney disease, or unspecified chronic kidney disease; N18.2 Chronic kidney disease, stage 2 (mild); E87.0 Hyperosmolality and hypernatremia; D64.9 Anemia, unspecified; E78.00 Pure hypercholesterolemia, unspecified; F20.9 Schizophrenia, unspecified; D69.6 Thrombocytopenia, unspecified; G93.89 Other specified disorders of brain; Z79.4 Long term (current) use of insulin; Z74.01 Bed confinement status; Z86.73 Personal history of transient ischemic attack (TIA), and cerebral infarction without residual deficits; Z86.19 Personal history of other infectious and parasitic diseases; I25.2 Old myocardial infarction
CPT/HCPCS: 31720; 36415; 36600; 71045; 76770; 80048; 80053; 81003; 82140; 82375; 82550; 82607; 82746; 82805; 82962; 83036; 83605; 83735; 83880; 84100; 84145; 84295; 84439; 84443; 84478; 84481; 84484; 85025; 87070; 87077; 87186; 87420; 87426; 87804; 93005; 93306; 94002; 94003; 94070; 94640; 94760; 97162; 99291; A4606; A4663; C1893; J0295; J0456; J0692; J0696; J1650; J1815; J1940; J2470; J2543; J2704; J2920; J3490; J7030; J7050; J7060; J7070; J7608

== ENCOUNTER 2024-02-15 01:52 | Inpatient (IN) | payer MEDICARE, MEDICAID ==
[~2024-02-15] VITALS: Ht 177.8 cm; Wt 120.8 kg
[2024-02-15 01:56] VITALS: O2SAT 100
[2024-02-15 10:20] LABS: CHLORIDE 114 mEq/L (98-107); SODIUM 147 mEq/L (136-145)
[2024-02-15 10:21] LABS: CARBON DIOXIDE 27 mEq/L (21-32)
[2024-02-15 10:26] LABS: CREATININE 1.4 mg/dL (0.6-1.3); GLUCOSE 158 mg/dL (70-105); UREA NITROGEN BLOOD 23 mg/dL (9-23)
[2024-02-15 10:27] LABS: TROPONIN I HIGH SENSITIVITY 8 ng/L (3.0-53)
[2024-02-15 10:29] LABS: INR 1.1; PARTIAL THROMBOPLASTIN TIME 23.1 sec (23.4-31.0); PROTHROMBIN TIME 12.6 sec (9.6-11.0)
[2024-02-15 10:34] LABS: ETHANOL BLOOD < 10 mg/dL (<10)
[2024-02-15 14:00] VITALS: BP 154/88; PULSE 138; RESP 21; TEMP 37.66968; TEMP 37.7524; O2SAT 99
[2024-02-15] MEDS ORDERED: IPRATROPIUM/ALBUTEROL 0.5-3(2.5)MG/3ML NEB HHN PRN (15:00)
[2024-02-15] MEDS ORDERED: ONDANSETRON HCL 4MG/2ML INJ IV PRN (15:00)
[2024-02-15] MEDS ORDERED: CLONIDINE 0.1MG TABLET PO PRN (15:00)
[2024-02-15] MEDS ORDERED: DOCUSATE SODIUM 100MG CAPSULE PO PRN (15:00)
[2024-02-15] MEDS ORDERED: DEXTROSE 50% WATER 50ML SYRINGE IV PRN (15:00)
[2024-02-15 16:00] VITALS: BP 171/96; PULSE 149; RESP 26; TEMP 36.55848; O2SAT 97
[2024-02-15] MEDS: BLOOD SUGAR DIAGNOSTIC STRIP TEST SCH (17:10)
[2024-02-15] MEDS: INSULIN LISPRO 100 UNITS/ML SUBCUT SCH (17:40)
[2024-02-15 18:34] LABS: CLARITY URINE CLOUDY (CLEAR); COLOR URINE DARK YELLOW (YELLOW); GLUCOSE URINE NEGATIVE (NEGATIVE); KETONES URINE NEGATIVE (NEGATIVE); LEUKOCYTE ESTERASE URINE 3+ (NEGATIVE); NITRITE URINE NEGATIVE (NEGATIVE); OCCULT BLOOD URINE 2+ (NEGATIVE); PROTEIN URINE 2+ (NEGATIVE)
[2024-02-15 18:54] LABS: *AMPHETAMINES SCREEN URINE NEGATIVE (NEGATIVE); *BARBITURATES SCREEN URINE NEGATIVE (NEGATIVE); *BENZODIAZEPINES SCREEN URINE NEGATIVE (NEGATIVE); *COCAINE SCREEN URINE NEGATIVE (NEGATIVE); METHADONE URINE SCREEN NEGATIVE (NEGATIVE); OPIATES URINE SCREEN NEGATIVE (NEGATIVE); PHENCYCLIDINE URINE SCREEN NEGATIVE (NEGATIVE)
[2024-02-15 18:55] LABS: CANNABINOID URINE SCREEN NEGATIVE (NEGATIVE); ECSTASY MDMA SCREEN URINE NEGATIVE (NEGATIVE)
[2024-02-15 19:12] LABS: BACTERIA URINE 3+; SQUAMOUS EPITHELIAL CELL URINE 1+ /lpf (RARE/1+); WBC URINE TNTC /hpf (0-2)
[2024-02-15 19:48] LABS: HEMATOCRIT. 44.1 % (42.0-52.0); HEMOGLOBIN. 14.2 g/dL (14.0-18.0); MEAN CORPUSCULAR HGB CONC 32.2 g/dL (31.0-37.0); MEAN CORPUSCULAR VOLUME 96.4 fL (80.0-94.0); MEAN PLATELET VOLUME 9.9 fl (7.4-10.4); PLATELET 183 x1000/uL (130-400); RED BLOOD CELL COUNT 4.57 mill/uL (4.7-6.1); RED CELL DISTRIBUTION WIDTH 14.7 % (11.6-14.6); WHITE BLOOD COUNT 18.5 x1000/uL (4.5-11.0)
[2024-02-15 19:53] LABS: DIFFERENTIAL COMMENT 1
[2024-02-15 20:00] VITALS: BP 167/82; PULSE 142; RESP 20; TEMP 36.78072; O2SAT 97
[2024-02-15 20:05] LABS: LACTIC ACID 2.9 mmol/L (0.4-2.0)
[2024-02-15 20:06] LABS: AMMONIA < 17 uMol/L (<32)
[2024-02-15 20:19] LABS: PLATELET ESTIMATE NORMAL
[2024-02-15] MEDS: CARVEDILOL 6.25 MG TABLET PO SCH (21:13)
[2024-02-15] MEDS: ATORVASTATIN CALCIUM 40MG TABLET PO SCH (21:13)
[2024-02-16] VITALS: BP 150/60; PULSE 109; RESP 20; TEMP 36.78072; O2SAT 98
[2024-02-16 00:30] LABS: CREATINE KINASE MB FRACTION < 0.5 ng/mL (0.5-3.6); TROPONIN I HIGH SENSITIVITY 23 ng/L (3.0-53)
[2024-02-16 00:31] LABS: CREATINE KINASE 492 IU/L (46-171)
[2024-02-16 04:00] VITALS: BP 143/77; PULSE 124; RESP 18; TEMP 37.7808; O2SAT 96
[2024-02-16] MEDS: ACETAMINOPHEN 325MG TABLET PO PRN (06:25)
[2024-02-16 06:58] LABS: CREATINE KINASE MB FRACTION < 0.5 ng/mL (0.5-3.6)
[2024-02-16 06:59] LABS: BASOPHILS % 0.3 % (0.0-2.0); CARBON DIOXIDE 28 mEq/L (21-32); CHLORIDE 114 mEq/L (98-107); EOSINOPHILS % 0.4 % (0.0-5.0); HEMATOCRIT. 41.5 % (42.0-52.0); HEMOGLOBIN. 13.7 g/dL (14.0-18.0); LYMPHOCYTES % 13.7 % (20.0-50.0); MEAN CORPUSCULAR HEMOGLOBIN 31.4 pg (28.0-32.0); MEAN CORPUSCULAR HGB CONC 33.1 g/dL (31.0-37.0); MEAN CORPUSCULAR VOLUME 94.9 fL (80.0-94.0); MONOCYTES % 9.9 % (2.0-8.0); NEUTROPHILS % 75.7 % (40.0-76.0); PLATELET 173 x1000/uL (130-400); RED BLOOD CELL COUNT 4.38 mill/uL (4.7-6.1); RED CELL DISTRIBUTION WIDTH 14.7 % (11.6-14.6); SODIUM 151 mEq/L (136-145); TROPONIN I HIGH SENSITIVITY 26 ng/L (3.0-53)
[2024-02-16 07:01] LABS: CREATINE KINASE 615 IU/L (46-171)
[2024-02-16 07:03] LABS: PROTEIN TOTAL 6.7 g/dL (6.0-8.3); TRIGLYCERIDE 104 mg/dL (0-150)
[2024-02-16 07:05] LABS: ALANINE AMINOTRANSFERASE 38 IU/L (10-49); CREATININE 1.6 mg/dL (0.6-1.3); GLUCOSE 128 mg/dL (70-105); UREA NITROGEN BLOOD 35 mg/dL (9-23)
[2024-02-16 07:06] LABS: ALBUMIN 3.4 g/dL (3.2-4.8); LDL CHOLESTEROL 30 mg/dL (5-100)
[2024-02-16 07:07] LABS: ASPARTATE AMINOTRANSFERASE 37 IU/L (<34); BILIRUBIN DIRECT 1.3 mg/dL (<=3.0); BILIRUBIN TOTAL 2.1 mg/dL (0.1-1.0); CHOLESTEROL 77 mg/dL (<200); HDL CHOLESTEROL 28 mg/dL (>55); PHOSPHORUS 2.2 mg/dL (2.5-4.9)
[2024-02-16 07:23] LABS: INR 1.1; PROTHROMBIN TIME 11.9 sec (9.6-11.0)
[2024-02-16 08:00] VITALS: BP 121/64; PULSE 109; RESP 18; TEMP 36.55848; O2SAT 94
[2024-02-16] MEDS: LOSARTAN 25 MG TABLET PO SCH (08:31)
[2024-02-16 12:00] VITALS: BP 101/53; PULSE 95; RESP 20; TEMP 36.33624; O2SAT 96
[2024-02-16 16:00] VITALS: BP 117/62; PULSE 110; RESP 18; TEMP 36.28068; O2SAT 97
[2024-02-16] MEDS: DEXTROSE 5% WATER 1,000 ML IV SCH (16:54)
[2024-02-16] MEDS: ASPIRIN 81MG TABLET GT SCH (16:54)
[2024-02-16] MEDS ORDERED: PIPERACILLIN/TAZO 3.375G/100ML 100 ML IV SCH (17:00)
[2024-02-16] MEDS ORDERED: MEROPENEM 1,000 MG in SODIUM CHLORIDE 0.9% 100 ML IV SCH (17:00)
[2024-02-16] MEDS: MEROPENEM 1GM/50ML DUPLEX 50 ML IV SCH (18:57)
[2024-02-16 20:00] VITALS: BP 103/58; PULSE 102; RESP 17; TEMP 36.61404; O2SAT 99
[2024-02-17] VITALS: BP 113/63; PULSE 104; RESP 17; TEMP 36.3918; O2SAT 100
[2024-02-17 04:00] VITALS: BP 132/69; PULSE 124; RESP 18; TEMP 37.28076; O2SAT 100
[2024-02-17 08:22] VITALS: BP 124/74; PULSE 129; RESP 20; TEMP 36.50292; O2SAT 95
[2024-02-17 12:00] VITALS: BP 132/79; PULSE 94; RESP 22; TEMP 36.50292; O2SAT 95
[2024-02-17] MEDS: SODIUM CHLORIDE 0.45% 500 ML IV ONE (12:39)
[2024-02-17 13:29] LABS: HEMATOCRIT. 38.6 % (42.0-52.0); HEMOGLOBIN. 12.4 g/dL (14.0-18.0); MEAN CORPUSCULAR HGB CONC 32.2 g/dL (31.0-37.0); MEAN CORPUSCULAR VOLUME 96.2 fL (80.0-94.0); MEAN PLATELET VOLUME 10.1 fl (7.4-10.4); PLATELET 155 x1000/uL (130-400); RED BLOOD CELL COUNT 4.01 mill/uL (4.7-6.1); RED CELL DISTRIBUTION WIDTH 14.4 % (11.6-14.6); WHITE BLOOD COUNT 16.6 x1000/uL (4.5-11.0)
[2024-02-17 13:30] LABS: DIFFERENTIAL COMMENT 1
[2024-02-17 13:47] LABS: CHLORIDE 112 mEq/L (98-107); POTASSIUM 3.6 mEq/L (3.5-5.1); SODIUM 150 mEq/L (136-145)
[2024-02-17 13:48] LABS: CALCIUM 9.5 mg/dL (8.7-10.4); CARBON DIOXIDE 30 mEq/L (21-32)
[2024-02-17 13:53] LABS: CREATININE 1.7 mg/dL (0.6-1.3); GLUCOSE 160 mg/dL (70-105); TRIGLYCERIDE 107 mg/dL (0-150); UREA NITROGEN BLOOD 47 mg/dL (9-23)
[2024-02-17 13:54] LABS: LDL CHOLESTEROL 25 mg/dL (5-100)
[2024-02-17 13:55] LABS: ALBUMIN 3.1 g/dL (3.2-4.8); CHOLESTEROL 71 mg/dL (<200); HDL CHOLESTEROL < 20 mg/dL (>55)
[2024-02-17 14:01] LABS: PREALBUMIN < 5.0 mg/dl (10.0-40.0)
[2024-02-17 16:53] VITALS: BP 112/62; PULSE 107; RESP 20; RESP 22; TEMP 35.89176; O2SAT 96
[2024-02-17 19:15] LABS: CREATINE KINASE MB FRACTION < 0.5 ng/mL (0.5-3.6); TROPONIN I HIGH SENSITIVITY 14 ng/L (3.0-53)
[2024-02-17 19:16] LABS: CREATINE KINASE 248 IU/L (46-171)
[2024-02-17 20:00] VITALS: BP 113/62; PULSE 108; RESP 18; TEMP 37.11408; O2SAT 97
[2024-02-17 21:27] LABS: PLATELET ESTIMATE NORMAL
[2024-02-18] VITALS (7 sets, daily range): BP systolic 99–128; BP diastolic 58–76; PULSE 84–106; RESP 17–20; TEMP 36.55848–38.50308; O2SAT 98–100
[2024-02-18] MEDS: CLOPIDOGREL 75MG TABLET PO SCH (08:38)
[2024-02-18] MEDS: ACETAMINOPHEN 325MG TABLET PO PRN (08:41)
[2024-02-18 11:27] LABS: BASOPHILS % 0.2 % (0.0-2.0); EOSINOPHILS % 0.7 % (0.0-5.0); HEMATOCRIT. 37.3 % (42.0-52.0); HEMOGLOBIN. 12.1 g/dL (14.0-18.0); LYMPHOCYTES % 8.5 % (20.0-50.0); MEAN CORPUSCULAR HGB CONC 32.5 g/dL (31.0-37.0); MEAN CORPUSCULAR VOLUME 95.5 fL (80.0-94.0); NEUTROPHILS % 80.6 % (40.0-76.0); PLATELET 146 x1000/uL (130-400); RED CELL DISTRIBUTION WIDTH 14.5 % (11.6-14.6); WHITE BLOOD COUNT 16.7 x1000/uL (4.5-11.0)
[2024-02-18 12:21] LABS: CHLORIDE 110 mEq/L (98-107); POTASSIUM 3.6 mEq/L (3.5-5.1); SODIUM 147 mEq/L (136-145)
[2024-02-18 12:22] LABS: CALCIUM 9.6 mg/dL (8.7-10.4); CARBON DIOXIDE 27 mEq/L (21-32)
[2024-02-18 12:27] LABS: CREATININE 1.9 mg/dL (0.6-1.3); GLUCOSE 186 mg/dL (70-105); UREA NITROGEN BLOOD 54 mg/dL (9-23)
[2024-02-18 18:55] LABS: LACTIC ACID 2.1 mmol/L (0.4-2.0)
[2024-02-18] MEDS: ATORVASTATIN CALCIUM 40MG TABLET PO SCH (20:50)
[2024-02-19] VITALS: BP 124/56; PULSE 90; RESP 18; TEMP 38.22528; O2SAT 99
[2024-02-19 04:00] VITALS: BP 124/65; PULSE 96; RESP 18; TEMP 37.72524; O2SAT 99
[2024-02-19 08:00] VITALS: BP 134/67; PULSE 90; RESP 18; TEMP 37.00296; O2SAT 100
[2024-02-19 08:11] LABS: POTASSIUM 3.5 mEq/L (3.5-5.1)
[2024-02-19 08:12] LABS: CALCIUM 9.3 mg/dL (8.7-10.4)
[2024-02-19 08:17] LABS: CREATININE 1.8 mg/dL (0.6-1.3)
[2024-02-19 08:24] LABS: BASOPHILS % 0.2 % (0.0-2.0); EOSINOPHILS % 1.5 % (0.0-5.0); HEMATOCRIT. 35.3 % (42.0-52.0); HEMOGLOBIN. 11.7 g/dL (14.0-18.0); MEAN CORPUSCULAR HEMOGLOBIN 31.4 pg (28.0-32.0); MEAN CORPUSCULAR HGB CONC 33.1 g/dL (31.0-37.0); MEAN CORPUSCULAR VOLUME 95.1 fL (80.0-94.0); MEAN PLATELET VOLUME 9.9 fl (7.4-10.4); MONOCYTES % 10.8 % (2.0-8.0); NEUTROPHILS % 77.5 % (40.0-76.0); PLATELET 134 x1000/uL (130-400); RED BLOOD CELL COUNT 3.71 mill/uL (4.7-6.1); RED CELL DISTRIBUTION WIDTH 14.2 % (11.6-14.6); WHITE BLOOD COUNT 14.2 x1000/uL (4.5-11.0)
[2024-02-19 12:00] VITALS: BP 125/63; PULSE 77; RESP 18; TEMP 37.00296; O2SAT 97
[2024-02-19 16:00] VITALS: BP 132/91; PULSE 82; RESP 18; TEMP 37.00296; O2SAT 100
[2024-02-19 20:00] VITALS: BP 126/68; PULSE 87; RESP 20; TEMP 36.44736; O2SAT 100
[2024-02-20] VITALS: BP 131/72; PULSE 90; RESP 20; TEMP 36.28068; O2SAT 99
[2024-02-20 04:00] VITALS: BP 123/63; PULSE 81; RESP 20; TEMP 36.16956; O2SAT 98
[2024-02-20 08:05] VITALS: BP 120/58; PULSE 72; RESP 22; TEMP 36.44736; O2SAT 98
[2024-02-20 12:00] VITALS: BP 102/52; PULSE 56; RESP 18; TEMP 36.114; O2SAT 95
[2024-02-20 16:02] VITALS: BP 118/84; PULSE 82; RESP 20; TEMP 36.6696; O2SAT 96
[2024-02-20 20:00] VITALS: BP 127/60; PULSE 75; RESP 18; TEMP 36.78072; O2SAT 98
[2024-02-21] VITALS: BP 125/70; PULSE 80; RESP 18; TEMP 36.55848; O2SAT 97
[2024-02-21 04:00] VITALS: BP 120/62; PULSE 73; RESP 20; TEMP 36.6696; O2SAT 96
[2024-02-21 06:08] LABS: HEMATOCRIT. 35.3 % (42.0-52.0); HEMOGLOBIN. 11.9 g/dL (14.0-18.0); MEAN CORPUSCULAR HEMOGLOBIN 30.9 pg (28.0-32.0); MEAN CORPUSCULAR HGB CONC 33.6 g/dL (31.0-37.0); MEAN CORPUSCULAR VOLUME 92.1 fL (80.0-94.0); MEAN PLATELET VOLUME 9.7 fl (7.4-10.4); PLATELET 147 x1000/uL (130-400); RED BLOOD CELL COUNT 3.83 mill/uL (4.7-6.1); RED CELL DISTRIBUTION WIDTH 13.6 % (11.6-14.6); WHITE BLOOD COUNT 11.3 x1000/uL (4.5-11.0)
[2024-02-21 06:16] LABS: CARBON DIOXIDE 31 mEq/L (21-32); CHLORIDE 100 mEq/L (98-107); POTASSIUM 3.6 mEq/L (3.5-5.1); SODIUM 138 mEq/L (136-145)
[2024-02-21 06:17] LABS: CALCIUM 9.3 mg/dL (8.7-10.4)
[2024-02-21 06:22] LABS: CREATININE 1.2 mg/dL (0.6-1.3); GLUCOSE 113 mg/dL (70-105); UREA NITROGEN BLOOD 39 mg/dL (9-23)
[2024-02-21 07:38] LABS: DIFFERENTIAL COMMENT 1
[2024-02-21 08:00] VITALS: BP 129/66; PULSE 72; RESP 22; TEMP 36.6696; O2SAT 98
[2024-02-21] MEDS: MULTIVITAMINS,THER W-MINERALS TABLET PO SCH (09:00)
[2024-02-21] MEDS: ASCORBIC ACID 500 MG TABLET PO SCH (09:00)
[2024-02-21 12:00] VITALS: BP 112/64; PULSE 73; RESP 22; TEMP 36.114; O2SAT 98
[2024-02-21 12:17] LABS: NUCLEATED RED BLOOD CELLS 1 /100 WBC; PLATELET ESTIMATE NORMAL
[2024-02-21 16:00] VITALS: BP 107/69; PULSE 76; RESP 22; TEMP 36.6696; O2SAT 98
[2024-02-21 20:00] VITALS: BP 133/76; PULSE 76; RESP 20; TEMP 36.55848; O2SAT 98
[2024-02-22] VITALS (8 sets, daily range): BP systolic 100–128; BP diastolic 50–69; PULSE 68–91; RESP 11–21; TEMP 36.55848–37.00296; O2SAT 97–100
[2024-02-22 08:50] LABS: CARBON DIOXIDE 29 mEq/L (21-32); CHLORIDE 103 mEq/L (98-107); SODIUM 140 mEq/L (136-145)
[2024-02-22 08:51] LABS: CALCIUM 9.4 mg/dL (8.7-10.4)
[2024-02-22 08:55] LABS: CREATININE 1.1 mg/dL (0.6-1.3); GLUCOSE 109 mg/dL (70-105)
[2024-02-22 08:56] LABS: UREA NITROGEN BLOOD 31 mg/dL (9-23)
[2024-02-22 10:11] LABS: BASOPHILS % 0.3 % (0.0-2.0); HEMATOCRIT. 35.7 % (42.0-52.0); HEMOGLOBIN. 11.9 g/dL (14.0-18.0); MEAN CORPUSCULAR HEMOGLOBIN 30.9 pg (28.0-32.0); MEAN CORPUSCULAR HGB CONC 33.3 g/dL (31.0-37.0); MEAN CORPUSCULAR VOLUME 92.9 fL (80.0-94.0); MEAN PLATELET VOLUME 9.7 fl (7.4-10.4); MONOCYTES % 13.5 % (2.0-8.0); NEUTROPHILS % 70.2 % (40.0-76.0); PLATELET 190 x1000/uL (130-400); RED BLOOD CELL COUNT 3.84 mill/uL (4.7-6.1); RED CELL DISTRIBUTION WIDTH 13.5 % (11.6-14.6); WHITE BLOOD COUNT 15.1 x1000/uL (4.5-11.0)
[2024-02-22] MEDS: MEROPENEM 1GM/50ML DUPLEX 50 ML IV SCH (17:36)
[2024-02-23] VITALS (15 sets, daily range): BP systolic 104–149; BP diastolic 58–89; PULSE 64–69; RESP 10–14; TEMP 36.00288–36.50292; O2SAT 98–100
[2024-02-23] MEDS: MEROPENEM 500MG/50ML 50 ML IV SCH ×2 (05:25→06:14)
[2024-02-23 06:26] LABS: CHLORIDE 100 mEq/L (98-107); POTASSIUM 3.8 mEq/L (3.5-5.1); SODIUM 140 mEq/L (136-145)
[2024-02-23 06:27] LABS: CALCIUM 9.4 mg/dL (8.7-10.4); CARBON DIOXIDE 31 mEq/L (21-32)
[2024-02-23 06:32] LABS: GLUCOSE 104 mg/dL (70-105); UREA NITROGEN BLOOD 30 mg/dL (9-23)
[2024-02-23 08:16] LABS: BG BASE EXCESS 10.9 mmol/L (-2.0-3.0); BG CARBOXYHEMOGLOBIN 0.4 % (0.5-1.5); BG DEOXYHEMOGLOBIN 1.4 % (0.0-5.0); BG FRACTION INSPIRED OXYGEN 28; BG HCO3 ACT 36.3 mmol/L (21.0-28.0); BG METHEMOGLOBIN 0.3 % (0.5-1.5); BG OXYGEN SATURATION 98.6 % (94.0-98.0); BG OXYHEMOGLOBIN 97.9 % (94.0-98.0); BG PCO2 51.9 mmHg (35.0-48.0); BG PH 7.463 (7.350-7.450); BG PO2 113.8 mmHg (83.0-108.0); BG SAMPLE SITE RIGHT RADIAL; BG TOTAL HEMOGLOBIN 12.4 g/dL (13.5-17.5); BG VENT MODE NASAL CANNULA
[2024-02-23] MEDS: MEROPENEM 1G/100ML 100 ML IV SCH (21:14)
[2024-02-23 22:30] LABS: HEMATOCRIT. 39.2 % (42.0-52.0); HEMOGLOBIN. 12.8 g/dL (14.0-18.0); MEAN CORPUSCULAR HEMOGLOBIN 30.7 pg (28.0-32.0); MEAN CORPUSCULAR HGB CONC 32.7 g/dL (31.0-37.0); MEAN CORPUSCULAR VOLUME 93.7 fL (80.0-94.0); MEAN PLATELET VOLUME 9.5 fl (7.4-10.4); PLATELET 166 x1000/uL (130-400); RED BLOOD CELL COUNT 4.19 mill/uL (4.7-6.1); RED CELL DISTRIBUTION WIDTH 13.7 % (11.6-14.6); WHITE BLOOD COUNT 12.3 x1000/uL (4.5-11.0)
[2024-02-23 22:31] LABS: DIFFERENTIAL COMMENT 1
[2024-02-23 23:01] LABS: PLATELET ESTIMATE NORMAL
[2024-02-24] VITALS (17 sets, daily range): BP systolic 100–142; BP diastolic 64–95; PULSE 65–77; RESP 9–14; TEMP 35.8362–36.61404; O2SAT 97–100
[2024-02-24 08:11] LABS: BASOPHILS % 0.3 % (0.0-2.0); EOSINOPHILS % 3.6 % (0.0-5.0); HEMATOCRIT. 37.1 % (42.0-52.0); HEMOGLOBIN. 12.6 g/dL (14.0-18.0); LYMPHOCYTES % 9.1 % (20.0-50.0); MEAN CORPUSCULAR HEMOGLOBIN 31.3 pg (28.0-32.0); MEAN CORPUSCULAR HGB CONC 33.9 g/dL (31.0-37.0); MEAN CORPUSCULAR VOLUME 92.4 fL (80.0-94.0); MONOCYTES % 14.8 % (2.0-8.0); NEUTROPHILS % 72.2 % (40.0-76.0); PLATELET 185 x1000/uL (130-400); RED BLOOD CELL COUNT 4.02 mill/uL (4.7-6.1); RED CELL DISTRIBUTION WIDTH 13.7 % (11.6-14.6); WHITE BLOOD COUNT 10.2 x1000/uL (4.5-11.0)
[2024-02-24] MEDS: BLOOD SUGAR DIAGNOSTIC STRIP TEST SCH (08:45)
[2024-02-24] MEDS: INSULIN LISPRO 100 UNITS/ML SUBCUT SCH (12:00)
[2024-02-24 16:08] LABS: BG BASE EXCESS 14.5 mmol/L (-2.0-3.0); BG DEOXYHEMOGLOBIN 2.2 % (0.0-5.0); BG FRACTION INSPIRED OXYGEN 35; BG HCO3 ACT 40.4 mmol/L (21.0-28.0); BG METHEMOGLOBIN 0.1 % (0.5-1.5); BG OXYGEN SATURATION 97.8 % (94.0-98.0); BG OXYHEMOGLOBIN 96.7 % (94.0-98.0); BG PCO2 56.6 mmHg (35.0-48.0); BG PH 7.471 (7.350-7.450); BG PO2 99.2 mmHg (83.0-108.0); BG SAMPLE SITE RIGHT BRACHIAL; BG TOTAL HEMOGLOBIN 11.5 g/dL (13.5-17.5); BG VENT MODE HIGH FLOW
[2024-02-25] VITALS (23 sets, daily range): BP systolic 116–156; BP diastolic 63–76; PULSE 72–92; RESP 9–18; TEMP 36.16956–37.16964; O2SAT 98–100
[2024-02-25 17:49] LABS: BG BASE EXCESS 9.5 mmol/L (-2.0-3.0); BG CARBOXYHEMOGLOBIN 0.4 % (0.5-1.5); BG DEOXYHEMOGLOBIN 2.5 % (0.0-5.0); BG FRACTION INSPIRED OXYGEN 40; BG HCO3 ACT 34.3 mmol/L (21.0-28.0); BG METHEMOGLOBIN 0.3 % (0.5-1.5); BG OXYGEN SATURATION 97.5 % (94.0-98.0); BG OXYHEMOGLOBIN 96.8 % (94.0-98.0); BG PCO2 46.8 mmHg (35.0-48.0); BG PH 7.483 (7.350-7.450); BG PO2 93.3 mmHg (83.0-108.0); BG SAMPLE SITE RIGHT RADIAL; BG TOTAL HEMOGLOBIN 13.2 g/dL (13.5-17.5); BG VENT MODE VENT - AC
[2024-02-25] MEDS: IPRATROPIUM/ALBUTEROL 0.5-3(2.5)MG/3ML NEB HHN SCH (22:38)
[2024-02-26] VITALS (44 sets, daily range): BP systolic 119–156; BP diastolic 61–90; PULSE 61–99; RESP 14–19; TEMP 36.44736–37.94748; O2SAT 99–100
[2024-02-26] MEDS: PANTOPRAZOLE SODIUM 40 MG/VIAL IV SCH (09:23)
[2024-02-26 09:46] LABS: BASOPHILS % 0.6 % (0.0-2.0); EOSINOPHILS % 1.9 % (0.0-5.0); HEMATOCRIT. 35.9 % (42.0-52.0); LYMPHOCYTES % 26.4 % (20.0-50.0); MEAN CORPUSCULAR HEMOGLOBIN 30.9 pg (28.0-32.0); MEAN CORPUSCULAR HGB CONC 33.4 g/dL (31.0-37.0); MEAN CORPUSCULAR VOLUME 92.5 fL (80.0-94.0); MEAN PLATELET VOLUME 8.6 fl (7.4-10.4); MONOCYTES % 14.8 % (2.0-8.0); NEUTROPHILS % 56.3 % (40.0-76.0); PLATELET 244 x1000/uL (130-400); RED BLOOD CELL COUNT 3.88 mill/uL (4.7-6.1); RED CELL DISTRIBUTION WIDTH 13.7 % (11.6-14.6); WHITE BLOOD COUNT 11.2 x1000/uL (4.5-11.0)
[2024-02-26 09:52] LABS: BG BASE EXCESS 12.6 mmol/L (-2.0-3.0); BG CARBOXYHEMOGLOBIN 0.3 % (0.5-1.5); BG DEOXYHEMOGLOBIN 2.1 % (0.0-5.0); BG FRACTION INSPIRED OXYGEN 40; BG METHEMOGLOBIN 0.3 % (0.5-1.5); BG OXYGEN SATURATION 97.9 % (94.0-98.0); BG OXYHEMOGLOBIN 97.3 % (94.0-98.0); BG PCO2 36.4 mmHg (35.0-48.0); BG PH 7.601 (7.350-7.450); BG PO2 90.3 mmHg (83.0-108.0); BG SAMPLE SITE RIGHT RADIAL; BG TOTAL HEMOGLOBIN 11.7 g/dL (13.5-17.5); BG VENT MODE VENT - AC
[2024-02-26 09:55] LABS: CALCIUM 9.6 mg/dL (8.7-10.4); CARBON DIOXIDE 35 mEq/L (21-32); CHLORIDE 101 mEq/L (98-107); SODIUM 143 mEq/L (136-145)
[2024-02-26 10:01] LABS: CREATININE 1.2 mg/dL (0.6-1.3); GLUCOSE 85 mg/dL (70-105); UREA NITROGEN BLOOD 28 mg/dL (9-23)
[2024-02-26] MEDS: ACETAZOLAMIDE SODIUM 500MG/VIAL IV NR (16:13)
[2024-02-26] MEDS: MEROPENEM 1G/100ML 100 ML IV SCH (16:52)
[2024-02-27] VITALS (58 sets, daily range): BP systolic 99–132; BP diastolic 60–76; PULSE 67–90; RESP 11–17; TEMP 36.72516–37.503; O2SAT 96–100
[2024-02-27 06:58] LABS: BASOPHILS % 0.4 % (0.0-2.0); EOSINOPHILS % 2.2 % (0.0-5.0); HEMATOCRIT. 34.6 % (42.0-52.0); HEMOGLOBIN. 11.4 g/dL (14.0-18.0); LYMPHOCYTES % 18.2 % (20.0-50.0); MEAN CORPUSCULAR HEMOGLOBIN 30.4 pg (28.0-32.0); MEAN CORPUSCULAR HGB CONC 32.9 g/dL (31.0-37.0); MEAN CORPUSCULAR VOLUME 92.3 fL (80.0-94.0); MEAN PLATELET VOLUME 8.3 fl (7.4-10.4); MONOCYTES % 9.9 % (2.0-8.0); NEUTROPHILS % 69.3 % (40.0-76.0); PLATELET 233 x1000/uL (130-400); RED BLOOD CELL COUNT 3.75 mill/uL (4.7-6.1); RED CELL DISTRIBUTION WIDTH 13.9 % (11.6-14.6); WHITE BLOOD COUNT 11.3 x1000/uL (4.5-11.0)
[2024-02-27 07:29] LABS: CHLORIDE 102 mEq/L (98-107); POTASSIUM 3.3 mEq/L (3.5-5.1); SODIUM 141 mEq/L (136-145)
[2024-02-27 07:30] LABS: CALCIUM 9.4 mg/dL (8.7-10.4); CARBON DIOXIDE 32 mEq/L (21-32)
[2024-02-27 07:35] LABS: CREATININE 1.2 mg/dL (0.6-1.3); GLUCOSE 93 mg/dL (70-105); UREA NITROGEN BLOOD 31 mg/dL (9-23)
[2024-02-27 09:03] LABS: BG BASE EXCESS -0.9 mmol/L (-2.0-3.0); BG CARBOXYHEMOGLOBIN 0.6 % (0.5-1.5); BG DEOXYHEMOGLOBIN 1.6 % (0.0-5.0); BG FRACTION INSPIRED OXYGEN 35; BG METHEMOGLOBIN 0.1 % (0.5-1.5); BG OXYGEN SATURATION 98.4 % (94.0-98.0); BG OXYHEMOGLOBIN 97.7 % (94.0-98.0); BG PCO2 23.5 mmHg (35.0-48.0); BG PH 7.547 (7.350-7.450); BG PO2 119.6 mmHg (83.0-108.0); BG SAMPLE SITE RIGHT RADIAL; BG TOTAL HEMOGLOBIN 12.6 g/dL (13.5-17.5); BG TOTAL RESPIRATORY RATE 16 b/min; BG VENT MODE VENT - AC
[2024-02-27] MEDS: POTASSIUM CHLORIDE 20MEQ/PACKET PO NR (15:54)
[2024-02-28] VITALS (42 sets, daily range): BP systolic 110–155; BP diastolic 57–108; PULSE 64–89; RESP 10–21; TEMP 36.44736–36.83628; O2SAT 97–100
[2024-02-28 06:22] LABS: CALCIUM 9.3 mg/dL (8.7-10.4); CARBON DIOXIDE 27 mEq/L (21-32); CHLORIDE 106 mEq/L (98-107); POTASSIUM 3.6 mEq/L (3.5-5.1); SODIUM 141 mEq/L (136-145)
[2024-02-28 06:27] LABS: CREATININE 1.1 mg/dL (0.6-1.3)
[2024-02-28 06:28] LABS: GLUCOSE 88 mg/dL (70-105); UREA NITROGEN BLOOD 30 mg/dL (9-23)
[2024-02-28 06:41] LABS: BASOPHILS % 0.4 % (0.0-2.0); EOSINOPHILS % 2.8 % (0.0-5.0); HEMATOCRIT. 31.6 % (42.0-52.0); HEMOGLOBIN. 10.8 g/dL (14.0-18.0); LYMPHOCYTES % 18.1 % (20.0-50.0); MEAN CORPUSCULAR HEMOGLOBIN 31.5 pg (28.0-32.0); MEAN CORPUSCULAR HGB CONC 34.2 g/dL (31.0-37.0); MEAN CORPUSCULAR VOLUME 92.2 fL (80.0-94.0); MEAN PLATELET VOLUME 8.2 fl (7.4-10.4); MONOCYTES % 8.9 % (2.0-8.0); NEUTROPHILS % 69.8 % (40.0-76.0); PLATELET 194 x1000/uL (130-400); RED BLOOD CELL COUNT 3.43 mill/uL (4.7-6.1); RED CELL DISTRIBUTION WIDTH 13.8 % (11.6-14.6)
[2024-02-28] MEDS: MEROPENEM 500MG/50ML IV SCH ×2 (09:28→10:43)
[2024-02-28 10:44] LABS: BG CARBOXYHEMOGLOBIN 0.3 % (0.5-1.5); BG DEOXYHEMOGLOBIN 4.9 % (0.0-5.0); BG FRACTION INSPIRED OXYGEN 30; BG HCO3 ACT 28.6 mmol/L (21.0-28.0); BG METHEMOGLOBIN 0.3 % (0.5-1.5); BG OXYGEN SATURATION 95.1 % (94.0-98.0); BG OXYHEMOGLOBIN 94.5 % (94.0-98.0); BG PCO2 43.3 mmHg (35.0-48.0); BG PH 7.438 (7.350-7.450); BG SAMPLE SITE RIGHT BRACHIAL; BG TOTAL HEMOGLOBIN 11.4 g/dL (13.5-17.5); BG VENT MODE VENT - AC
[2024-02-28] MEDS: DEXT 5% IV SCH (18:09)
[2024-02-28] MEDS: MEROPENEM IV SCH (18:09)
[2024-02-28] MEDS: WATER IV SCH (18:09)
[2024-02-29] VITALS (62 sets, daily range): BP systolic 98–142; BP diastolic 55–95; PULSE 67–84; RESP 8–23; TEMP 35.89176–36.83628; O2SAT 96–100
[2024-02-29 06:34] LABS: CARBON DIOXIDE 29 mEq/L (21-32); CHLORIDE 106 mEq/L (98-107); POTASSIUM 3.8 mEq/L (3.5-5.1); SODIUM 140 mEq/L (136-145)
[2024-02-29 06:35] LABS: CALCIUM 9.6 mg/dL (8.7-10.4)
[2024-02-29 06:40] LABS: CREATININE 1.1 mg/dL (0.6-1.3); GLUCOSE 94 mg/dL (70-105); UREA NITROGEN BLOOD 31 mg/dL (9-23)
[2024-02-29 07:02] LABS: HEMATOCRIT 33.2 % (42.0-52.0); HEMOGLOBIN 11.3 g/dL (14.0-18.0); MEAN CORPUSCULAR HEMOGLOBIN 31.7 pg (28.0-32.0); MEAN CORPUSCULAR HGB CONC 34.1 g/dL (31.0-37.0); MEAN CORPUSCULAR VOLUME 92.8 fL (80.0-94.0); PLATELET 205 x1000/uL (130-400); RED BLOOD CELL COUNT 3.57 mill/uL (4.7-6.1); RED CELL DISTRIBUTION WIDTH 13.7 % (11.6-14.6); WHITE BLOOD COUNT 10.7 x1000/uL (4.5-11.0)
[2024-02-29] MEDS ORDERED: FENTANYL CITRATE/PF 50MCG/ML 2ML VIAL ONE (17:37)
[2024-02-29] MEDS ORDERED: ROCURONIUM BROMIDE 10MG/ML VIAL 5ML IV ONE ×2 (17:37→17:58)
[2024-03-01] VITALS (64 sets, daily range): BP systolic 102–145; BP diastolic 58–85; PULSE 62–80; RESP 9–21; TEMP 35.66952–37.11408; O2SAT 98–100
[2024-03-01 10:31] LABS: BG BASE EXCESS 1.5 mmol/L (-2.0-3.0); BG DEOXYHEMOGLOBIN 2.7 % (0.0-5.0); BG FRACTION INSPIRED OXYGEN 30; BG HCO3 ACT 26.1 mmol/L (21.0-28.0); BG METHEMOGLOBIN 0.3 % (0.5-1.5); BG OXYGEN SATURATION 97.3 % (94.0-98.0); BG PCO2 41.1 mmHg (35.0-48.0); BG PH 7.421 (7.350-7.450); BG PO2 95.2 mmHg (83.0-108.0); BG SAMPLE SITE RIGHT RADIAL; BG TOTAL HEMOGLOBIN 11.1 g/dL (13.5-17.5); BG VENT MODE VENT - AC
[2024-03-01 22:20] LABS: INR 1.1; PROTHROMBIN TIME 12.3 sec (9.6-11.0)
[2024-03-02] VITALS (23 sets, daily range): BP systolic 129–151; BP diastolic 61–78; PULSE 74–102; RESP 13–24; TEMP 36.3918–37.72524; O2SAT 96–100
[2024-03-02] MEDS ORDERED: RACEPINEPHRINE 2.25% 0.5ML NEB VIAL HHN NR (11:45)
[2024-03-02] MEDS ORDERED: IPRATROPIUM/ALBUTEROL 0.5-3(2.5)MG/3ML NEB HHN PRN (11:45)
[2024-03-02 16:22] LABS: CHLORIDE 109 mEq/L (98-107); POTASSIUM 4.5 mEq/L (3.5-5.1); SODIUM 142 mEq/L (136-145)
[2024-03-02 16:23] LABS: CALCIUM 9.2 mg/dL (8.7-10.4); CARBON DIOXIDE 26 mEq/L (21-32)
[2024-03-02 16:28] LABS: CREATININE 1.1 mg/dL (0.6-1.3); GLUCOSE 89 mg/dL (70-105); UREA NITROGEN BLOOD 27 mg/dL (9-23)
[2024-03-02 16:29] LABS: BASOPHILS % 0.5 % (0.0-2.0); EOSINOPHILS % 2.4 % (0.0-5.0); HEMATOCRIT. 32.8 % (42.0-52.0); HEMOGLOBIN. 10.5 g/dL (14.0-18.0); LYMPHOCYTES % 22.6 % (20.0-50.0); MEAN CORPUSCULAR HEMOGLOBIN 30.5 pg (28.0-32.0); MEAN CORPUSCULAR HGB CONC 32.1 g/dL (31.0-37.0); MEAN CORPUSCULAR VOLUME 94.8 fL (80.0-94.0); MEAN PLATELET VOLUME 8.4 fl (7.4-10.4); MONOCYTES % 9.8 % (2.0-8.0); NEUTROPHILS % 64.7 % (40.0-76.0); PLATELET 212 x1000/uL (130-400); RED BLOOD CELL COUNT 3.46 mill/uL (4.7-6.1); RED CELL DISTRIBUTION WIDTH 13.8 % (11.6-14.6); WHITE BLOOD COUNT 12.1 x1000/uL (4.5-11.0)
[2024-03-02 16:38] LABS: INR 1.1; PROTHROMBIN TIME 11.7 sec (9.6-11.0)
[2024-03-02] MEDS: MEROPENEM 1GM/50ML DUPLEX 50 ML IV SCH (18:05)
[2024-03-02] MEDS: IPRATROPIUM/ALBUTEROL 0.5-3(2.5)MG/3ML NEB HHN SCH (20:19)
[2024-03-03] VITALS (16 sets, daily range): BP systolic 110–145; BP diastolic 62–91; PULSE 73–101; RESP 11–25; TEMP 36.114–37.16964; O2SAT 96–100
[2024-03-03 08:49] LABS: CHLORIDE 111 mEq/L (98-107); POTASSIUM 4.2 mEq/L (3.5-5.1); SODIUM 145 mEq/L (136-145)
[2024-03-03 08:50] LABS: CALCIUM 9.2 mg/dL (8.7-10.4); CARBON DIOXIDE 25 mEq/L (21-32)
[2024-03-03 08:53] LABS: BASOPHILS % 0.5 % (0.0-2.0); EOSINOPHILS % 2.3 % (0.0-5.0); HEMATOCRIT. 31.8 % (42.0-52.0); HEMOGLOBIN. 10.7 g/dL (14.0-18.0); LYMPHOCYTES % 27.4 % (20.0-50.0); MEAN CORPUSCULAR HEMOGLOBIN 31.5 pg (28.0-32.0); MEAN CORPUSCULAR HGB CONC 33.7 g/dL (31.0-37.0); MEAN CORPUSCULAR VOLUME 93.4 fL (80.0-94.0); MEAN PLATELET VOLUME 8.1 fl (7.4-10.4); MONOCYTES % 13.4 % (2.0-8.0); NEUTROPHILS % 56.4 % (40.0-76.0); PLATELET 203 x1000/uL (130-400); RED CELL DISTRIBUTION WIDTH 14.3 % (11.6-14.6); WHITE BLOOD COUNT 10.1 x1000/uL (4.5-11.0)
[2024-03-03 08:55] LABS: CREATININE 1.2 mg/dL (0.6-1.3); GLUCOSE 100 mg/dL (70-105); UREA NITROGEN BLOOD 33 mg/dL (9-23)
[2024-03-04] VITALS (18 sets, daily range): BP systolic 109–137; BP diastolic 67–79; PULSE 80–94; RESP 10–26; TEMP 36.55848–37.00296; O2SAT 98–100
[2024-03-05] VITALS (21 sets, daily range): BP systolic 86–134; BP diastolic 55–74; PULSE 69–84; RESP 12–17; TEMP 36.50292–37.44744; O2SAT 97–100
[2024-03-06] VITALS (14 sets, daily range): BP systolic 96–128; BP diastolic 53–71; PULSE 72–83; RESP 10–18; TEMP 36.61404–37.11408; O2SAT 98–100
== END 2024-03-06 16:39 | DRG 5 ==
LOC: ER 01:52 → 8WST 06:10 → 5EST 02-22 13:55
PROVIDERS: ADMIT Family Medicine Adult Medicine; ATTEND Family Medicine Adult Medicine
PROC: 5A0945A Assistance with Respiratory Ventilation, 24-96 Consecutive Hours, High Flow/Velocity Cannula (ICD-10-PCS; 2024-02-23)
PROC: 0BH17EZ Insertion of Endotracheal Airway into Trachea, Via Natural or Artificial Opening (ICD-10-PCS; 2024-02-25)
PROC: 06HY33Z Insertion of Infusion Device into Lower Vein, Percutaneous Approach (ICD-10-PCS; 2024-02-25)
PROC: 0B110F4 Bypass Trachea to Cutaneous with Tracheostomy Device, Open Approach (ICD-10-PCS; principal; 2024-02-29)
PROC: 5A1955Z Respiratory Ventilation, Greater than 96 Consecutive Hours (ICD-10-PCS; 2024-02-29)
PROC: 0BJ08ZZ Inspection of Tracheobronchial Tree, Via Natural or Artificial Opening Endoscopic (ICD-10-PCS; 2024-02-29)
DX: A41.9 Sepsis, unspecified organism (principal); I63.543 Cerebral infarction due to unspecified occlusion or stenosis of bilateral cerebellar arteries; J69.0 Pneumonitis due to inhalation of food and vomit; G92.8 Other toxic encephalopathy; J96.21 Acute and chronic respiratory failure with hypoxia; L89.153 Pressure ulcer of sacral region, stage 3; I13.2 Hypertensive heart and chronic kidney disease with heart failure and with stage 5 chronic kidney disease, or end stage renal disease; N17.9 Acute kidney failure, unspecified; E46 Unspecified protein-calorie malnutrition; L89.223 Pressure ulcer of left hip, stage 3; Z20.822 Contact with and (suspected) exposure to COVID-19; J96.22 Acute and chronic respiratory failure with hypercapnia; N39.0 Urinary tract infection, site not specified; E87.20 Acidosis, unspecified; E87.0 Hyperosmolality and hypernatremia; I47.20 Ventricular tachycardia, unspecified; N18.6 End stage renal disease; E83.39 Other disorders of phosphorus metabolism; E11.22 Type 2 diabetes mellitus with diabetic chronic kidney disease; E78.00 Pure hypercholesterolemia, unspecified; F20.9 Schizophrenia, unspecified; F03.90 Unspecified dementia, unspecified severity, without behavioral disturbance, psychotic disturbance, mood disturbance, and anxiety; I50.9 Heart failure, unspecified; B19.20 Unspecified viral hepatitis C without hepatic coma; B96.1 Klebsiella pneumoniae [K. pneumoniae] as the cause of diseases classified elsewhere; N40.0 Benign prostatic hyperplasia without lower urinary tract symptoms; J44.9 Chronic obstructive pulmonary disease, unspecified; R13.10 Dysphagia, unspecified; Z93.1 Gastrostomy status; Z99.2 Dependence on renal dialysis; Z86.73 Personal history of transient ischemic attack (TIA), and cerebral infarction without residual deficits; Z79.4 Long term (current) use of insulin; Z86.19 Personal history of other infectious and parasitic diseases; Z74.01 Bed confinement status
CPT/HCPCS: 36415; 36600; 70551; 71045; 76770; 80048; 80061; 80076; 80305; 80320; 81003; 82040; 82140; 82375; 82550; 82553; 82805; 82962; 83036; 83605; 83735; 83880; 84100; 84134; 84145; 84484; 85025; 85027; 85379; 86850; 86900; 87070; 87077; 87186; 87426; 87804; 93005; 93306; 93880; 93970; 93971; 94002; 94003; 94070; 94640; 94664; 99285; A4606; A4663; C1893; J1120; J1815; J2185; J2470; J2543; J3010; J3490; J7060; J7070; G0480

== ENCOUNTER 2024-03-31 12:00 | Inpatient (IN) | payer MEDICARE, MEDICAID ==
[~2024-03-31] VITALS: Ht 182.9 cm; Wt 121.6 kg
[2024-03-31] VITALS (7 sets, daily range): PULSE 74–96; RESP 12–14; O2SAT 99–100
[2024-03-31 12:58] LABS: MEAN CORPUSCULAR HEMOGLOBIN 28.7 pg (28.0-32.0); MEAN CORPUSCULAR HGB CONC 31.4 g/dL (31.0-37.0); MEAN CORPUSCULAR VOLUME 91.5 fL (80.0-94.0); MEAN PLATELET VOLUME 6.3 fl (7.4-10.4); PLATELET 343 x1000/uL (130-400); RED BLOOD CELL COUNT 1.75 mill/uL (4.7-6.1); RED CELL DISTRIBUTION WIDTH 16.6 % (11.6-14.6); WHITE BLOOD COUNT 12.1 x1000/uL (4.5-11.0)
[2024-03-31 13:06] LABS: CHLORIDE 99 mEq/L (98-107); POTASSIUM 4.1 mEq/L (3.5-5.1); SODIUM 142 mEq/L (136-145)
[2024-03-31 13:07] LABS: CARBON DIOXIDE 39 mEq/L (21-32)
[2024-03-31 13:08] LABS: CALCIUM 8.5 mg/dL (8.7-10.4)
[2024-03-31 13:12] LABS: CREATININE 1.3 mg/dL (0.6-1.3); GLUCOSE 126 mg/dL (70-105); UREA NITROGEN BLOOD 66 mg/dL (9-23)
[2024-03-31 13:27] LABS: PROTHROMBIN TIME 11.4 sec (9.6-11.0)
[2024-03-31 13:31] LABS: TROPONIN I HIGH SENSITIVITY < 4 ng/L (3.0-53)
[2024-03-31 13:37] LABS: DIFFERENTIAL COMMENT 1
[2024-03-31 16:10] LABS: TROPONIN I HIGH SENSITIVITY < 4 ng/L (3.0-53)
[2024-03-31 17:10] LABS: ANISOCYTOSIS 1+; HYPOCHROMASIA 3+; PLATELET ESTIMATE NORMAL
[2024-03-31 17:11] LABS: MICROCYTOSIS 1+; TARGET CELLS 1+; TEAR DROP CELLS 1+
[2024-04-01] VITALS (21 sets, daily range): BP systolic 94–123; BP diastolic 47–64; PULSE 62–77; RESP 12–18; TEMP 35.4–36.9; O2SAT 99–100
[2024-04-01 03:35] LABS: MEAN CORPUSCULAR HEMOGLOBIN 29.9 pg (28.0-32.0); MEAN CORPUSCULAR HGB CONC 32.4 g/dL (31.0-37.0); MEAN CORPUSCULAR VOLUME 92.4 fL (80.0-94.0); MEAN PLATELET VOLUME 6.5 fl (7.4-10.4); PLATELET 333 x1000/uL (130-400); RED CELL DISTRIBUTION WIDTH 16.3 % (11.6-14.6); WHITE BLOOD COUNT 13.7 x1000/uL (4.5-11.0)
[2024-04-01 03:49] LABS: POTASSIUM 4.7 mEq/L (3.5-5.1)
[2024-04-01 03:51] LABS: CALCIUM 8.4 mg/dL (8.7-10.4)
[2024-04-01 03:55] LABS: CREATININE 1.4 mg/dL (0.6-1.3)
[2024-04-01] MEDS ORDERED: ONDANSETRON HCL 4MG/2ML INJ IV PRN (04:00)
[2024-04-01] MEDS ORDERED: LORAZEPAM 2MG/ML INJ IV PRN (04:00)
[2024-04-01] MEDS ORDERED: ACETAMINOPHEN 650MG/20.3ML UDC GT PRN ×2 (04:00)
[2024-04-01] MEDS ORDERED: GUAIFENESIN 200MG/10ML SUGAR FREE UDC PO PRN (04:00)
[2024-04-01] MEDS ORDERED: DOCUSATE SODIUM 100MG CAPSULE GT PRN (04:00)
[2024-04-01] MEDS ORDERED: ACETAMINOPHEN 650MG SUPP PR PRN ×2 (04:00)
[2024-04-01] MEDS ORDERED: DEXTROSE 50% WATER 50ML SYRINGE IV PRN ×2 (04:00→09:30)
[2024-04-01] MEDS ORDERED: MORPHINE SULFATE 2 MG/ML INJ (NOT FOR IM USE) IV PRN (04:00)
[2024-04-01] MEDS ORDERED: DIPHENHYDRAMINE 50MG/ML VIAL IV PRN (04:00)
[2024-04-01] MEDS ORDERED: MAGNESIUM/ALUMINUM HYDROXIDE/SIMETHICONE 30ML UDC GT PRN (04:00)
[2024-04-01] MEDS ORDERED: CLONIDINE 0.1MG TABLET GT PRN (04:00)
[2024-04-01] MEDS ORDERED: IPRATROPIUM/ALBUTEROL 0.5-3(2.5)MG/3ML NEB NEB PRN (04:00)
[2024-04-01 04:12] LABS: DIFFERENTIAL COMMENT 1; HEMATOCRIT. 18.5 % (42.0-52.0)
[2024-04-01] MEDS ORDERED: ATROV INH (04:44)
[2024-04-01] MEDS ORDERED: ASPI-1160 PO (04:44)
[2024-04-01] MEDS ORDERED: CARV6.2548 MT (04:44)
[2024-04-01] MEDS ORDERED: ATROV IH (04:44)
[2024-04-01] MEDS ORDERED: ATOR-2 PO (04:44)
[2024-04-01] MEDS ORDERED: ALBU2.5V13 NEB (04:44)
[2024-04-01] MEDS ORDERED: ACET650S25 GT (04:44)
[2024-04-01] MEDS ORDERED: TOPUD PO (04:44)
[2024-04-01 05:04] LABS: MEAN CORPUSCULAR HEMOGLOBIN 30.4 pg (28.0-32.0); MEAN CORPUSCULAR HGB CONC 32.6 g/dL (31.0-37.0); MEAN CORPUSCULAR VOLUME 93.3 fL (80.0-94.0); PLATELET 278 x1000/uL (130-400); RED BLOOD CELL COUNT 2.23 mill/uL (4.7-6.1); RED CELL DISTRIBUTION WIDTH 16.5 % (11.6-14.6)
[2024-04-01 05:18] LABS: ALANINE AMINOTRANSFERASE 46 IU/L (10-49); ASPARTATE AMINOTRANSFERASE 94 IU/L (<34)
[2024-04-01 05:19] LABS: ALBUMIN 2.7 g/dL (3.2-4.8); BILIRUBIN DIRECT 0.4 mg/dL (<=3.0); BILIRUBIN TOTAL 0.6 mg/dL (0.1-1.0); CREATINE KINASE 51 IU/L (46-171); PROTEIN TOTAL 6.6 g/dL (6.0-8.3)
[2024-04-01 05:21] LABS: THYROID STIMULATING HORMONE 2.49 uIU/mL (0.55-4.78)
[2024-04-01 05:36] LABS: HEMOGLOBIN. 6.8 g/dL (14.0-18.0)
[2024-04-01 05:37] LABS: DIFFERENTIAL COMMENT 1; HEMATOCRIT. 20.8 % (42.0-52.0)
[2024-04-01 07:07] LABS: NUCLEATED RED BLOOD CELLS 1 /100 WBC; PLATELET ESTIMATE NORMAL
[2024-04-01 07:13] LABS: ATYPICAL LYMPHOCYTES 1; NUCLEATED RED BLOOD CELLS 1 /100 WBC; PLATELET ESTIMATE NORMAL
[2024-04-01] MEDS ORDERED: INSULIN LISPRO 100 UNITS/ML SUBCUT SCH (08:20)
[2024-04-01] MEDS ORDERED: BLOOD SUGAR DIAGNOSTIC STRIP TEST SCH (08:41)
[2024-04-01] MEDS: PANTOPRAZOLE SODIUM 40 MG/VIAL IV SCH (11:28)
[2024-04-01] MEDS: BLOOD SUGAR DIAGNOSTIC STRIP TEST SCH (12:00)
[2024-04-01] MEDS: INSULIN LISPRO 100 UNITS/ML SUBCUT SCH (12:00)
[2024-04-01 12:51] LABS: IRON 42 ug/dL (65-175)
[2024-04-01 12:53] LABS: TOTAL IRON BINDING CAPACITY 388 ug/dl (250-425)
[2024-04-01 12:56] LABS: FOLIC ACID (FOLATE) SERUM 17.54 ng/mL (>5.38)
[2024-04-01 12:57] LABS: FERRITIN 173 ng/mL (22-322); VITAMIN B12 SERUM 1992 pg/mL (211-911)
[2024-04-01 13:04] LABS: HEMATOCRIT 22.5 % (42.0-52.0); HEMOGLOBIN 7.2 g/dL (14.0-18.0); MEAN CORPUSCULAR VOLUME 90.6 fL (80.0-94.0); PLATELET 288 x1000/uL (130-400); RED BLOOD CELL COUNT 2.49 mill/uL (4.7-6.1); RED CELL DISTRIBUTION WIDTH 15.4 % (11.6-14.6); WHITE BLOOD COUNT 11.4 x1000/uL (4.5-11.0)
[2024-04-01 13:15] LABS: BG BASE EXCESS 11.1 mmol/L (-2.0-3.0); BG CARBOXYHEMOGLOBIN 1.3 % (0.5-1.5); BG FRACTION INSPIRED OXYGEN 40; BG HCO3 ACT 35.8 mmol/L (21.0-28.0); BG OXYHEMOGLOBIN 97.7 % (94.0-98.0); BG PCO2 49.8 mmHg (35.0-48.0); BG PH 7.475 (7.350-7.450); BG PO2 129.8 mmHg (83.0-108.0); BG SAMPLE SITE RIGHT RADIAL; BG TOTAL HEMOGLOBIN 7.1 g/dL (13.5-17.5); BG VENT MODE VENT - AC
[2024-04-01] MEDS: PIPERACILLIN/TAZO 3.375G/50ML IV SCH (14:28)
[2024-04-01] MEDS: VANCOMYCIN 1G PREMIX 200 ML IV SCH (15:27)
[2024-04-01] MEDS: RISPERIDONE 0.5MG TABLET PO SCH (19:03)
[2024-04-01] MEDS: SUCRALFATE 1G TABLET PO SCH (19:03)
[2024-04-01] MEDS: SODIUM CHLORIDE 0.45% 1,000 ML IV SCH (19:24)
[2024-04-01] MEDS: IPRATROPIUM/ALBUTEROL 0.5-3(2.5)MG/3ML NEB HHN SCH (19:56)
[2024-04-01] MEDS ORDERED: PIPERACILLIN/TAZO 3.375G/100ML 100 ML IV SCH (21:00)
[2024-04-01] MEDS: TAMSULOSIN HCL 0.4MG SR CAPSULE PO SCH (21:31)
[2024-04-02] VITALS (26 sets, daily range): BP systolic 82–114; BP diastolic 46–80; PULSE 65–86; RESP 12–24; TEMP 36.3–37.4; O2SAT 99–100
[2024-04-02 06:16] LABS: ALANINE AMINOTRANSFERASE 43 IU/L (10-49); ALBUMIN 2.7 g/dL (3.2-4.8); ASPARTATE AMINOTRANSFERASE 80 IU/L (<34); BILIRUBIN DIRECT 0.4 mg/dL (<=3.0)
[2024-04-02 06:17] LABS: BILIRUBIN TOTAL 0.7 mg/dL (0.1-1.0); PROTEIN TOTAL 6.5 g/dL (6.0-8.3)
[2024-04-02] MEDS: ATORVASTATIN CALCIUM 40MG TABLET GT SCH (09:03)
[2024-04-02] MEDS: SODIUM CHLORIDE 0.9% (SEPSIS BOLUS) IV ONE ×2 (12:09→15:14)
[2024-04-02] MEDS ORDERED: VANCOMYCIN 1.25GM PMX (XELLIA) 250 ML IV SCH (15:00)
[2024-04-02] MEDS ORDERED: NOREPINEPHRINE 8MG/250ML PMX 250 ML IV PRN (16:00)
[2024-04-02 18:23] LABS: HEMATOCRIT 21.1 % (42.0-52.0); MEAN CORPUSCULAR HEMOGLOBIN 29.4 pg (28.0-32.0); PLATELET 234 x1000/uL (130-400); RED CELL DISTRIBUTION WIDTH 15.8 % (11.6-14.6); WHITE BLOOD COUNT 11.8 x1000/uL (4.5-11.0)
[2024-04-02 18:33] LABS: HEMOGLOBIN 6.8 g/dL (14.0-18.0)
[2024-04-02 18:34] LABS: POTASSIUM 3.3 mEq/L (3.5-5.1)
[2024-04-02 18:35] LABS: CALCIUM 8.3 mg/dL (8.7-10.4)
[2024-04-02 18:40] LABS: CREATININE 1.4 mg/dL (0.6-1.3)
[2024-04-03] VITALS (23 sets, daily range): BP systolic 87–128; BP diastolic 53–75; PULSE 57–76; RESP 14–28; TEMP 36.5–37; O2SAT 9–100
[2024-04-03 02:39] LABS: HEMATOCRIT 26.4 % (42.0-52.0); HEMOGLOBIN 8.8 g/dL (14.0-18.0)
[2024-04-03 02:53] LABS: INR 1.1; PROTHROMBIN TIME 11.9 sec (9.6-11.0)
[2024-04-03 06:36] LABS: POTASSIUM 3.4 mEq/L (3.5-5.1)
[2024-04-03 06:38] LABS: CALCIUM 8.5 mg/dL (8.7-10.4)
[2024-04-03 06:40] LABS: BASOPHILS % 0.4 % (0.0-2.0); EOSINOPHILS % 1.5 % (0.0-5.0); HEMATOCRIT. 26.2 % (42.0-52.0); HEMOGLOBIN. 8.8 g/dL (14.0-18.0); LYMPHOCYTES % 21.5 % (20.0-50.0); MEAN CORPUSCULAR HGB CONC 33.3 g/dL (31.0-37.0); MEAN CORPUSCULAR VOLUME 89.9 fL (80.0-94.0); MEAN PLATELET VOLUME 6.5 fl (7.4-10.4); MONOCYTES % 10.1 % (2.0-8.0); NEUTROPHILS % 66.5 % (40.0-76.0); PLATELET 224 x1000/uL (130-400); RED BLOOD CELL COUNT 2.92 mill/uL (4.7-6.1); RED CELL DISTRIBUTION WIDTH 15.1 % (11.6-14.6); WHITE BLOOD COUNT 11.7 x1000/uL (4.5-11.0)
[2024-04-03 06:42] LABS: CREATININE 1.4 mg/dL (0.6-1.3)
[2024-04-03] MEDS: POTASSIUM CHLORIDE 20MEQ/PACKET PO NR (14:01)
[2024-04-03] MEDS: LACTULOSE 20G/30ML UDC GT NR (17:25)
[2024-04-03] MEDS: MIDODRINE HCL 5MG TABLET PO SCH (18:00)
[2024-04-03] MEDS: SODIUM HYPOCHLORITE 0.125% 473ML SOLUTION TOP SCH (18:15)
[2024-04-03 20:50] LABS: ALBUMIN 2.4 g/dL (3.2-4.8)
[2024-04-03 21:19] LABS: PREALBUMIN < 5.0 mg/dl (10.0-40.0)
[2024-04-03] MEDS: SENNOSIDES/DOCUSATE SOD 8.6/50MG TABLET PO SCH (21:47)
[2024-04-03] MEDS ORDERED: MIDODRINE HCL 5MG TABLET PO SCH (22:00)
[2024-04-04] VITALS (23 sets, daily range): BP systolic 104–132; BP diastolic 55–71; PULSE 58–70; RESP 14–27; TEMP 36.2–36.9; O2SAT 98–100
[2024-04-04 06:35] LABS: CARBON DIOXIDE 30 mEq/L (21-32); CHLORIDE 105 mEq/L (98-107); POTASSIUM 3.6 mEq/L (3.5-5.1); SODIUM 143 mEq/L (136-145)
[2024-04-04 06:36] LABS: CALCIUM 8.3 mg/dL (8.7-10.4)
[2024-04-04 06:40] LABS: CREATININE 1.1 mg/dL (0.6-1.3)
[2024-04-04 06:41] LABS: GLUCOSE 96 mg/dL (70-105); UREA NITROGEN BLOOD 28 mg/dL (9-23)
[2024-04-04 08:56] LABS: BASOPHILS % 0.3 % (0.0-2.0); EOSINOPHILS % 2.1 % (0.0-5.0); HEMATOCRIT. 26.1 % (42.0-52.0); HEMOGLOBIN. 8.7 g/dL (14.0-18.0); LYMPHOCYTES % 19.8 % (20.0-50.0); MEAN CORPUSCULAR HEMOGLOBIN 30.5 pg (28.0-32.0); MEAN CORPUSCULAR HGB CONC 33.3 g/dL (31.0-37.0); MEAN CORPUSCULAR VOLUME 91.5 fL (80.0-94.0); MONOCYTES % 9.5 % (2.0-8.0); NEUTROPHILS % 68.3 % (40.0-76.0); PLATELET 179 x1000/uL (130-400); RED BLOOD CELL COUNT 2.85 mill/uL (4.7-6.1); RED CELL DISTRIBUTION WIDTH 15.3 % (11.6-14.6); WHITE BLOOD COUNT 11.5 x1000/uL (4.5-11.0)
[2024-04-04] MEDS ORDERED: NALOXONE HCL 0.4MG/ML VIAL IV PRN (11:45)
[2024-04-04] MEDS: BISACODYL 10MG SUPP PR NR (13:03)
[2024-04-04] MEDS: POLYMYXIN B SULFATE/TMP 10ML BOTTLE BOTHEYE SCH (19:35)
[2024-04-05] VITALS (22 sets, daily range): BP systolic 101–150; BP diastolic 53–76; PULSE 53–90; RESP 13–17; TEMP 36.2–36.7; O2SAT 97–100
[2024-04-05 07:08] LABS: CARBON DIOXIDE 29 mEq/L (21-32); CHLORIDE 106 mEq/L (98-107); POTASSIUM 3.5 mEq/L (3.5-5.1); SODIUM 143 mEq/L (136-145)
[2024-04-05 07:09] LABS: CALCIUM 8.2 mg/dL (8.7-10.4)
[2024-04-05 07:14] LABS: GLUCOSE 100 mg/dL (70-105); UREA NITROGEN BLOOD 21 mg/dL (9-23)
[2024-04-05 07:15] LABS: ALANINE AMINOTRANSFERASE 32 IU/L (10-49); ASPARTATE AMINOTRANSFERASE 61 IU/L (<34)
[2024-04-05 07:16] LABS: ALBUMIN 2.5 g/dL (3.2-4.8); BILIRUBIN DIRECT 0.4 mg/dL (<=3.0); BILIRUBIN TOTAL 0.6 mg/dL (0.1-1.0); PHOSPHORUS 2.4 mg/dL (2.5-4.9); PROTEIN TOTAL 6.3 g/dL (6.0-8.3)
[2024-04-05 07:22] LABS: BASOPHILS % 0.4 % (0.0-2.0); HEMATOCRIT. 26.8 % (42.0-52.0); HEMOGLOBIN. 8.8 g/dL (14.0-18.0); LYMPHOCYTES % 18.2 % (20.0-50.0); MEAN CORPUSCULAR HEMOGLOBIN 29.5 pg (28.0-32.0); MEAN CORPUSCULAR HGB CONC 32.8 g/dL (31.0-37.0); MEAN CORPUSCULAR VOLUME 89.8 fL (80.0-94.0); MEAN PLATELET VOLUME 6.9 fl (7.4-10.4); MONOCYTES % 7.3 % (2.0-8.0); NEUTROPHILS % 72.1 % (40.0-76.0); PLATELET 174 x1000/uL (130-400); RED BLOOD CELL COUNT 2.99 mill/uL (4.7-6.1); RED CELL DISTRIBUTION WIDTH 15.1 % (11.6-14.6); WHITE BLOOD COUNT 11.6 x1000/uL (4.5-11.0)
[2024-04-05] MEDS ORDERED: CEFEPIME 2GM IN DEXT 5% 100ML IV SCH (13:30)
[2024-04-05 14:23] LABS: CLARITY URINE TURBID (CLEAR); COLOR URINE ORANGE (YELLOW); GLUCOSE URINE NEGATIVE (NEGATIVE); KETONES URINE NEGATIVE (NEGATIVE); LEUKOCYTE ESTERASE URINE 3+ (NEGATIVE); NITRITE URINE NEGATIVE (NEGATIVE); OCCULT BLOOD URINE 3+ (NEGATIVE); PROTEIN URINE 2+ (NEGATIVE); SPECIFIC GRAVITY URINE 1.005 (1.005-1.030)
[2024-04-05] MEDS: CEFEPIME 2GM/50ML DUPLEX 50 ML IV SCH (15:11)
[2024-04-05] MEDS: VANCOMYCIN 1GM/200ML PMX (BAXTER) IV SCH (15:12)
[2024-04-05 15:18] LABS: SQUAMOUS EPITHELIAL CELL URINE RARE /lpf (RARE/1+); WBC URINE TNTC /hpf (0-2)
[2024-04-05 15:19] LABS: BACTERIA URINE 4+
[2024-04-05 18:10] LABS: INR 1.1; PARTIAL THROMBOPLASTIN TIME 33.2 sec (23.4-31.0); PROTHROMBIN TIME 11.9 sec (9.6-11.0)
[2024-04-05] MEDS: ATORVASTATIN CALCIUM 40MG TABLET GT SCH (21:09)
[2024-04-06] VITALS (24 sets, daily range): BP systolic 103–135; BP diastolic 55–93; PULSE 53–75; RESP 11–16; TEMP 36.2–36.6; O2SAT 98–100
[2024-04-06] MEDS: VANCOMYCIN 1.25GM PMX (XELLIA) 250 ML IV SCH (15:34)
[2024-04-07] VITALS (22 sets, daily range): BP systolic 121–144; BP diastolic 62–75; PULSE 67–81; RESP 7–19; TEMP 36.4–36.7; O2SAT 96–100
[2024-04-07 08:14] LABS: CHLORIDE 109 mEq/L (98-107); POTASSIUM 3.3 mEq/L (3.5-5.1); SODIUM 146 mEq/L (136-145)
[2024-04-07 08:15] LABS: CALCIUM 8.5 mg/dL (8.7-10.4); CARBON DIOXIDE 27 mEq/L (21-32)
[2024-04-07 08:18] LABS: BASOPHILS % 0.3 % (0.0-2.0); EOSINOPHILS % 2.4 % (0.0-5.0); HEMOGLOBIN. 8.6 g/dL (14.0-18.0); LYMPHOCYTES % 16.3 % (20.0-50.0); MEAN CORPUSCULAR HEMOGLOBIN 30.7 pg (28.0-32.0); MEAN CORPUSCULAR HGB CONC 33.1 g/dL (31.0-37.0); MEAN CORPUSCULAR VOLUME 92.6 fL (80.0-94.0); MEAN PLATELET VOLUME 7.3 fl (7.4-10.4); MONOCYTES % 7.8 % (2.0-8.0); NEUTROPHILS % 73.2 % (40.0-76.0); PLATELET 148 x1000/uL (130-400); RED BLOOD CELL COUNT 2.81 mill/uL (4.7-6.1); RED CELL DISTRIBUTION WIDTH 15.7 % (11.6-14.6)
[2024-04-07 08:20] LABS: CREATININE 0.9 mg/dL (0.6-1.3); GLUCOSE 85 mg/dL (70-105); UREA NITROGEN BLOOD 13 mg/dL (9-23)
[2024-04-07] MEDS: POTASSIUM CHLORIDE 20MEQ TABLET SR PO NR (08:51)
[2024-04-07] MEDS: POLYVINYL ALCOHOL OPHTH DROPS 15ML BOTHEYE SCH (17:45)
[2024-04-08] VITALS (24 sets, daily range): BP systolic 123–151; BP diastolic 62–88; PULSE 72–89; RESP 8–18; TEMP 36.3–37; O2SAT 97–100
[2024-04-08] MEDS: DOCUSATE SODIUM SUGAR FREE 100MG/10ML UDC GT PRN (05:59)
[2024-04-08] MEDS: MEROPENEM 1GM/50ML DUPLEX 50 ML IV SCH (15:30)
[2024-04-09] VITALS (18 sets, daily range): BP systolic 125–154; BP diastolic 60–118; PULSE 58–78; RESP 12–20; TEMP 36.5–36.9; O2SAT 98–100
== END 2024-04-09 17:45 | DRG 720 ==
LOC: ER 12:18 → 5EST 15:14 → EDBEDREQ 15:20 → EDBEDREQSVC 15:56
PROVIDERS: ADMIT Family Medicine Adult Medicine; ATTEND Family Medicine Adult Medicine
PROC: 5A1955Z Respiratory Ventilation, Greater than 96 Consecutive Hours (ICD-10-PCS; principal; 2024-03-31)
PROC: 30233N1 Transfusion of Nonautologous Red Blood Cells into Peripheral Vein, Percutaneous Approach (ICD-10-PCS; 2024-03-31)
DX: A41.9 Sepsis, unspecified organism (principal); R57.9 Shock, unspecified; G93.40 Encephalopathy, unspecified; L89.154 Pressure ulcer of sacral region, stage 4; J44.9 Chronic obstructive pulmonary disease, unspecified; I13.0 Hypertensive heart and chronic kidney disease with heart failure and stage 1 through stage 4 chronic kidney disease, or unspecified chronic kidney disease; Z93.0 Tracheostomy status; Z99.11 Dependence on respirator [ventilator] status; I50.9 Heart failure, unspecified; J96.11 Chronic respiratory failure with hypoxia; E11.22 Type 2 diabetes mellitus with diabetic chronic kidney disease; E11.40 Type 2 diabetes mellitus with diabetic neuropathy, unspecified; R65.20 Severe sepsis without septic shock; D63.1 Anemia in chronic kidney disease; N18.2 Chronic kidney disease, stage 2 (mild); R13.12 Dysphagia, oropharyngeal phase; R47.01 Aphasia; N39.0 Urinary tract infection, site not specified; F03.90 Unspecified dementia, unspecified severity, without behavioral disturbance, psychotic disturbance, mood disturbance, and anxiety; E61.1 Iron deficiency; E78.00 Pure hypercholesterolemia, unspecified; K21.9 Gastro-esophageal reflux disease without esophagitis; B96.89 Other specified bacterial agents as the cause of diseases classified elsewhere; B19.20 Unspecified viral hepatitis C without hepatic coma; Z79.4 Long term (current) use of insulin; Z93.1 Gastrostomy status; I25.2 Old myocardial infarction; Z79.02 Long term (current) use of antithrombotics/antiplatelets; Z79.82 Long term (current) use of aspirin; Z79.899 Other long term (current) drug therapy; Z86.73 Personal history of transient ischemic attack (TIA), and cerebral infarction without residual deficits
CPT/HCPCS: 36415; 36430; 36600; 71045; 80048; 80076; 80202; 81003; 82040; 82270; 82375; 82550; 82607; 82728; 82746; 82805; 82962; 83036; 83540; 83550; 83605; 83735; 83880; 84100; 84134; 84145; 84443; 84484; 85014; 85018; 85025; 85027; 85044; 85049; 85384; 86850; 86900; 86920; 87186; 93005; 94002; 94003; 94070; 94640; 94664; 98960; 99291; A4606; A6261; C1893; J0692; J2185; J2470; J2543; J3370; P9016

== ENCOUNTER 2024-08-26 19:54 | Inpatient (IN) | payer MEDICARE, MEDICAID ==
[~2024-08-26] VITALS: Ht 185.4 cm; Wt 108.9 kg
[~2024-08-26 19:54] MED LIST changes: -ACET-3163 PO; -AMLO5TAB88 GT; -ASCO-339 GT; -ASPI-1406 GT; -ATOR40TA70 GT; +ATOR40TA70 PO; -CLON0.1T PO; -DOCU250C14 GT; -INSU100I28 SQ; -LACT10SO7 GT; -MULT-1146 GT; -OMEP40CA20 GT; +PANT40SU GT; -RISP05 PO; +SUCR1TAB PO; -TAMS-11 PO; +TAMS-54 PO
[2024-08-26 20:03] VITALS: PULSE 65; O2SAT 94
[2024-08-26] MEDS: CEFTRIAXONE 1GM/50ML 50 ML IV ONE (21:41)
[2024-08-26] MEDS: SODIUM CHLORIDE 0.9% (SEPSIS BOLUS) IV ONE (21:42)
[2024-08-26 22:54] LABS: BASOPHILS % 0.4 % (0.0-2.0); EOSINOPHILS % 1.6 % (0.0-5.0); HEMATOCRIT. 24.3 % (42.0-52.0); HEMOGLOBIN. 7.6 g/dL (14.0-18.0); LYMPHOCYTES % 9.2 % (20.0-50.0); MONOCYTES % 5.7 % (2.0-8.0); NEUTROPHILS % 83.1 % (40.0-76.0); RED BLOOD CELL COUNT 2.50 mill/uL (4.7-6.1); RED CELL DISTRIBUTION WIDTH 20.1 % (11.6-14.6)
[2024-08-26] MEDS: AZITHROMYCIN 500MG/250ML 250 ML IV ONE (22:57)
[2024-08-26 23:08] LABS: CREATININE 1.4 mg/dL (0.6-1.3)
[2024-08-26 23:09] LABS: MEAN PLATELET VOLUME 8.0 fl (7.4-10.4); UREA NITROGEN BLOOD 26 mg/dL (9-23)
[2024-08-26 23:10] LABS: ASPARTATE AMINOTRANSFERASE 19 IU/L (<34); PLATELET 71 x1000/uL (130-400)
[2024-08-26 23:11] LABS: BILIRUBIN DIRECT 0.1 mg/dL (<=3.0); BILIRUBIN TOTAL 0.2 mg/dL (0.1-1.0); INR 1.1; PROTEIN TOTAL 8.0 g/dL (6.0-8.3)
[2024-08-27] VITALS (23 sets, daily range): BP systolic 102–128; BP diastolic 59–72; PULSE 48–91; RESP 14–22; TEMP 34.4–36.2; O2SAT 94–100
[2024-08-27] MEDS: INSULIN LISPRO 100 UNITS/ML SUBCUT SCH (06:00)
[2024-08-27] MEDS: BLOOD SUGAR DIAGNOSTIC STRIP TEST SCH (06:00)
[2024-08-27] MEDS: DEXTROSE 50% WATER 50ML SYRINGE IV PRN (06:28)
[2024-08-27 06:53] LABS: BASOPHILS % 0.3 % (0.0-2.0); EOSINOPHILS % 0.5 % (0.0-5.0); HEMATOCRIT. 23.5 % (42.0-52.0); HEMOGLOBIN. 7.1 g/dL (14.0-18.0); LYMPHOCYTES % 12.9 % (20.0-50.0); MEAN PLATELET VOLUME 8.1 fl (7.4-10.4); MONOCYTES % 7.2 % (2.0-8.0); NEUTROPHILS % 79.1 % (40.0-76.0); RED BLOOD CELL COUNT 2.30 mill/uL (4.7-6.1); RED CELL DISTRIBUTION WIDTH 20.9 % (11.6-14.6)
[2024-08-27 06:55] LABS: CREATININE 1.4 mg/dL (0.6-1.3); UREA NITROGEN BLOOD 24.0 mg/dL (9-23)
[2024-08-27] MEDS: TAMSULOSIN HCL 0.4MG SR CAPSULE PO SCH (08:09)
[2024-08-27] MEDS: SUCRALFATE 1G TABLET PO SCH (08:10)
[2024-08-27] MEDS: PANTOPRAZOLE 40MG DR TABLET PO SCH (08:10)
[2024-08-27 09:02] LABS: PLATELET 50 x1000/uL (130-400)
[2024-08-27] MEDS ORDERED: CEFEPIME 1GM IN DEXT 5% 50ML IV SCH (11:15)
[2024-08-27] MEDS: CEFEPIME 2GM/100ML 100 ML IV SCH (12:39)
[2024-08-27] MEDS: VANCOMYCIN 2GM PMX (XELLIA) 400 ML IV SCH (14:03)
[2024-08-27 18:47] LABS: INFLUENZA TYPE A Presumptive Negative (Pres. Neg.)
[2024-08-27 18:48] LABS: INFLUENZA TYPE B Presumptive Negative (Pres. Neg.)
[2024-08-27 18:49] LABS: RESPIRATORY SYNCYTIAL VIRUS Not Detected (Not Detectd)
[2024-08-27] MEDS: ATORVASTATIN CALCIUM 40MG TABLET PO SCH (20:28)
[2024-08-28] VITALS (22 sets, daily range): BP systolic 102–112; BP diastolic 51–65; PULSE 66–109; RESP 8–22; TEMP 36.3–37.3; O2SAT 94–100
[2024-08-28 07:07] LABS: BASOPHILS % 0.2 % (0.0-2.0); CREATININE 1.5 mg/dL (0.6-1.3); EOSINOPHILS % 1.1 % (0.0-5.0); HEMATOCRIT. 23.4 % (42.0-52.0); HEMOGLOBIN. 7.6 g/dL (14.0-18.0); LYMPHOCYTES % 17.2 % (20.0-50.0); MEAN PLATELET VOLUME 7.7 fl (7.4-10.4); MONOCYTES % 10.3 % (2.0-8.0); NEUTROPHILS % 71.2 % (40.0-76.0); PLATELET 63 x1000/uL (130-400); RED BLOOD CELL COUNT 2.39 mill/uL (4.7-6.1); RED CELL DISTRIBUTION WIDTH 20.5 % (11.6-14.6); UREA NITROGEN BLOOD 25.0 mg/dL (9-23)
[2024-08-28 15:06] LABS: BG BASE EXCESS -2.3 mmol/L (-2.0-3.0); BG CARBOXYHEMOGLOBIN 1.3 % (0.5-1.5); BG DEOXYHEMOGLOBIN 1.3 % (0.0-5.0); BG FRACTION INSPIRED OXYGEN 40; BG HCO3 ACT 23.0 mmol/L (21.0-28.0); BG METHEMOGLOBIN 0.3 % (0.5-1.5); BG OXYGEN SATURATION 98.7 % (94.0-98.0); BG OXYHEMOGLOBIN 97.1 % (94.0-98.0); BG PCO2 42.0 mmHg (35.0-48.0); BG PEEP (cmH2O) 5.0 cmH2O; BG PH 7.357 (7.350-7.450); BG PO2 118.4 mmHg (83.0-108.0); BG SAMPLE SITE RIGHT RADIAL; BG TIDAL VOLUME(mL) 450.0 mL; BG TOTAL HEMOGLOBIN 7.4 g/dL (13.5-17.5); BG VENT MODE VENT - AC; BG VENT RATE 14.0 set
[2024-08-28] MEDS: VANCOMYCIN 1.25GM/250ML 250 ML IV SCH (18:39)
[2024-08-28] MEDS: IPRATROPIUM/ALBUTEROL 0.5-3(2.5)MG/3ML NEB HHN SCH (20:41)
[2024-08-29] VITALS (20 sets, daily range): BP systolic 104–155; BP diastolic 54–76; PULSE 60–86; RESP 14–24; TEMP 36.8–37.4; O2SAT 96–100
[2024-08-29 07:45] LABS: BASOPHILS % 0.4 % (0.0-2.0); EOSINOPHILS % 0.9 % (0.0-5.0); HEMATOCRIT. 22.5 % (42.0-52.0); HEMOGLOBIN. 7.2 g/dL (14.0-18.0); LYMPHOCYTES % 23.6 % (20.0-50.0); MEAN PLATELET VOLUME 7.1 fl (7.4-10.4); MONOCYTES % 14.0 % (2.0-8.0); NEUTROPHILS % 61.1 % (40.0-76.0); PLATELET 86 x1000/uL (130-400); RED BLOOD CELL COUNT 2.30 mill/uL (4.7-6.1); RED CELL DISTRIBUTION WIDTH 20.5 % (11.6-14.6)
[2024-08-29 07:58] LABS: CREATININE 1.7 mg/dL (0.6-1.3)
[2024-08-29 07:59] LABS: UREA NITROGEN BLOOD 25.0 mg/dL (9-23)
[2024-08-29] MEDS: METHYLPREDNISOLONE SOD SUCC 125MG/2ML (ACT-O-VIAL) IV SCH (11:04)
[2024-08-29] MEDS ORDERED: SODIUM HYPOCHLORITE (0.25%) 480ML SOLUTION (HALF STRENGTH) TOP SCH (12:15)
[2024-08-29] MEDS: SODIUM HYPOCHLORITE (0.25%) 480ML SOLUTION (HALF STRENGTH) TOP SCH (14:49)
[2024-08-30] VITALS (19 sets, daily range): BP systolic 106–178; BP diastolic 58–87; PULSE 58–86; RESP 15–24; TEMP 36.2–37.1; O2SAT 100
[2024-08-30] MEDS ORDERED: CEFE2FRO IV (11:10)
[2024-08-30] MEDS ORDERED: VANC1PIG IV (11:10)
[2024-08-30 15:37] LABS: BASOPHILS % 0.0 % (0.0-2.0); EOSINOPHILS % 0.1 % (0.0-5.0); HEMATOCRIT. 22.7 % (42.0-52.0); HEMOGLOBIN. 7.2 g/dL (14.0-18.0); LYMPHOCYTES % 7.3 % (20.0-50.0); MEAN PLATELET VOLUME 7.6 fl (7.4-10.4); MONOCYTES % 7.2 % (2.0-8.0); NEUTROPHILS % 85.4 % (40.0-76.0); PLATELET 107 x1000/uL (130-400); RED BLOOD CELL COUNT 2.32 mill/uL (4.7-6.1); RED CELL DISTRIBUTION WIDTH 19.3 % (11.6-14.6)
[2024-08-30 15:52] LABS: CREATININE 1.7 mg/dL (0.6-1.3); UREA NITROGEN BLOOD 36.0 mg/dL (9-23)
[2024-08-30] MEDS ORDERED: METHYLPREDNISOLONE SOD SUCC 40MG/ML (ACT-O-VIAL) IV SCH (21:00)
[2024-08-30] MEDS ORDERED: VANCOMYCIN 1GM/200ML PMX (BAXTER) IV SCH (21:00)
== END 2024-08-30 17:27 | DRG 720 ==
LOC: ER 19:54 → 5EST 22:23 → EDBEDREQ 22:27 → EDBEDREQTM 22:27 → ENRESERV 22:39
PROVIDERS: ADMIT Family Medicine Adult Medicine; ATTEND Family Medicine Adult Medicine
PROC: 5A1945Z Respiratory Ventilation, 24-96 Consecutive Hours (ICD-10-PCS; principal; 2024-08-26)
DX: A41.9 Sepsis, unspecified organism (principal); J96.21 Acute and chronic respiratory failure with hypoxia; N17.0 Acute kidney failure with tubular necrosis; G92.8 Other toxic encephalopathy; J15.69 Pneumonia due to other Gram-negative bacteria; L89.154 Pressure ulcer of sacral region, stage 4; J44.0 Chronic obstructive pulmonary disease with (acute) lower respiratory infection; D69.6 Thrombocytopenia, unspecified; I13.0 Hypertensive heart and chronic kidney disease with heart failure and stage 1 through stage 4 chronic kidney disease, or unspecified chronic kidney disease; I50.9 Heart failure, unspecified; J95.01 Hemorrhage from tracheostomy stoma; Z99.11 Dependence on respirator [ventilator] status; F03.90 Unspecified dementia, unspecified severity, without behavioral disturbance, psychotic disturbance, mood disturbance, and anxiety; D53.9 Nutritional anemia, unspecified; E78.00 Pure hypercholesterolemia, unspecified; R13.10 Dysphagia, unspecified; N40.0 Benign prostatic hyperplasia without lower urinary tract symptoms; N18.9 Chronic kidney disease, unspecified; L97.819 Non-pressure chronic ulcer of other part of right lower leg with unspecified severity; E11.22 Type 2 diabetes mellitus with diabetic chronic kidney disease; E11.622 Type 2 diabetes mellitus with other skin ulcer; B19.20 Unspecified viral hepatitis C without hepatic coma; K21.9 Gastro-esophageal reflux disease without esophagitis; Y83.9 Surgical procedure, unspecified as the cause of abnormal reaction of the patient, or of later complication, without mention of misadventure at the time of the procedure; Z86.73 Personal history of transient ischemic attack (TIA), and cerebral infarction without residual deficits; Y92.89 Other specified places as the place of occurrence of the external cause
CPT/HCPCS: 31720; 36415; 36600; 71045; 76604; 80048; 80076; 80202; 82375; 82805; 82962; 83036; 83605; 84145; 85025; 86850; 86900; 86920; 87070; 87077; 87186; 87420; 87804; 93005; 94002; 94003; 94070; 94640; 94664; 99291; A4606; J0456; J0692; J0696; J1815; J2919; J3373; J7030